=== PATIENT | female | born 1950 | race Caucasian/White ===

== ENCOUNTER → 2016-08-30 | Outpatient (CLI) | payer MEDICARE ==
--- NOTE | 2016-08-30 15:48 | US ---
EXAMINATION TYPE: US venous doppler duplex LE RT DATE OF EXAM: 08/30/2016 3:28 PM COMPARISON: NONE CLINICAL HISTORY: M25.561 Pain In Joint, Lower Leg. Right leg pain SIDE PERFORMED: Right TECHNIQUE: The lower extremity deep venous system is examined utilizing real time linear array sonog flor with graded compression, doppler sonography and color-flow sonography. VESSELS IMAGED: External Iliac Vein (EIV) Common Femoral Vein Deep Femoral Vein Greater Saphenous Vein * Femoral Vein Popliteal Vein Small Saphenous Vein * Proximal Calf Veins (* superficial vessels) Right Leg: Appears negative for DVT IMPRESSION: Right lower extremity negative for deep venous thrombosis by ultrasound.
== END | disposition home or self-care (01) ==
LOC: RADUSWWP 15:08
PROVIDERS: ATTEND Orthopaedic Surgery
DX: M25.561 Pain in right knee (principal); M79.661 Pain in right lower leg

== ENCOUNTER → 2016-10-28 | Outpatient (CLI) | payer MEDICARE ==
[2016-10-28 10:41] LABS: Basophils % (A) 1 %; CH 31.7; CHCM 32.8; Eosinophils # (A) 0.2 k/uL (0-0.7); Eosinophils % (A) 4 %; HCT 47.8 % (34.0-46.0); HDW 2.28; HGB 15.5 gm/dL (11.4-16.0); Luc # (Auto) 0.11; Luc % (Auto) 2; Lymphocytes % (A) 32 %; MCH 31.6 pg (25.0-35.0); MCHC 32.5 g/dL (31.0-37.0); Mean Platelet Volume 7.8; Monocytes # (A) 0.4 k/uL (0-1.0); Monocytes % (A) 6 %; Neutrophils # (A) 3.3 k/uL (1.3-7.7); Neutrophils % (A) 55 %; RBC 4.93 m/uL (3.80-5.40); RDW 12.9 % (11.5-15.5); WBC (Perox) 6.12
[2016-10-28 11:03] LABS: Potassium 4.2 mmol/L (3.5-5.1)
== END ==
LOC: LABPAT 10:12
PROVIDERS: ATTEND Orthopaedic Surgery
DX: Z01.812 Encounter for preprocedural laboratory examination (principal); M23.91 Unspecified internal derangement of right knee
CPT/HCPCS: 36415; 80051; 85025

== ENCOUNTER 2016-11-04 08:50 | Day surgery (SDC) | payer MEDICARE ==
[2016-10-29 12:10] VITALS: BMI 43.0
--- NOTE | 2016-11-04 07:18 | P.HPOR ---
History of Present Illness H&P Date: 11/04/16 Chief Complaint: Right knee pain 66-year-old patient seen with progressive right knee pain. After treatment options were discussed, she elected to proceed with right knee arthroscopy Past Medical History Past Medical History: Diabetes Mellitus, GERD/Reflux, Hyperlipidemia, Hypertension, Osteoarthritis (OA) Additional Past Medical History / Comment(s): MIGRAINE HEADACHE , PRIOR HISTORY OF HYPERTENSION AND DIABETIC PRIOR TO GASTRIC SLEEVE History of Any Multi-Drug Resistant Organisms: None Reported Past Surgical History: Appendectomy, Bariatric Surgery, Cholecystectomy, Joint Replacement, Tonsillectomy Additional Past Surgical History / Comment(s): GASTRIC SLEEVE,TOTAL RIGHT HIP, Past Anesthesia/Blood Transfusion Reactions: Motion Sickness, Postoperative Nausea & Vomiting (PONV) Smoking Status: Former smoker - Past Family History Brother(s) Family Medical History: Cancer Additional Family Medical History / Comment(s): ESOPHAGEAL Father Family Medical History: Cancer Medications and Allergies Home Medications Medication Instructions Recorded Confirmed Type Atorvastatin Calcium [Lipitor] 20 mg PO HS 10/29/16 10/29/16 History Esomeprazole Magnesium [NexIUM] 40 mg PO DAILY 10/29/16 10/29/16 History Gabapentin [Neurontin] 800 mg PO BID 10/29/16 10/29/16 History Meloxicam [Mobic] 7.5 mg PO DAILY 10/29/16 10/29/16 History Multivitamins, Thera [Multivitamin 1 tab PO DAILY 10/29/16 10/29/16 History (formulary)] Allergies Allergy/AdvReac Type Severity Reaction Status Date / Time amoxicillin [From Augmentin] Allergy Nausea & Verified 10/29/16 11:27 Vomiting & Diarrhea bee pollen Allergy Dyspnea,WHE Verified 10/29/16 11:28 EZING cat dander Allergy Dyspnea Verified 10/29/16 11:28 clavulanic acid Allergy Nausea & Verified 10/29/16 11:27 [From Augmentin] Vomiting & Diarrhea iodine Allergy Anaphylaxis Verified 10/29/16 11:25 latex Allergy Rash/Hives, Verified 10/29/16 11:27 ITCHING Physical Examination Osteopathic Statement: *. No significant issues noted on an osteopathic structural exam other than those noted in the History and Physical/Consult. Right knee range of motion 0-25. Moderate effusion. Tenderness medial joint line. Positive medial Kenia's. Crepitus along the patellofemoral compartment with range of motion. Pain with patellofemoral compression. Ligaments are stable. Hip rotation is without pain. Distal neurovascular exam is intact. Results X-ray right knee: moderate medial and severe patellofemoral compartment osteoarthritis MRI right knee: medial meniscal tear, osteoarthritis Assessment and Plan Plan: Assessment: Internal derangement right knee with medial meniscal tear Plan: Arthroscopy right knee with partial meniscectomy and debridement
[~2016-11-04 08:50] MED LIST: DEXAMETHASONE SOD PHOSPHATE 10 MG/ML 1 ML VIAL IV ONE; LACTATED RINGERS 1,000 ML IV SCH; LIDOCAINE 1% 20 ML VIAL (10MG/ML) FOR IV START INTRADERMA PRN; ONDANSETRON 4 MG/2 ML VIAL IVP ONE; SCOPOLAMINE 1.5MG/72HR PATCH TRANSDERM ONE; ceFAZolin 2 GM in SODIUM CHLORIDE 0.9% 100 ML IVPB ONE
[2016-11-04 10:05] LABS: Glucose,Whole Blood 135 mg/dL (75-99)
[2016-11-04] MEDS ORDERED: PROPOFOL 10 MG/ML 20 ML VIAL IV ONE (10:27)
[2016-11-04] MEDS ORDERED: MIDAZOLAM 2 MG/2 ML VIAL ONE (10:27)
[2016-11-04] MEDS ORDERED: GLYCOPYRROLATE 0.2 MG/ML 2 ML VIAL ONE (10:27)
[2016-11-04] MEDS ORDERED: SUCCINYLCHOLINE CHLORIDE 100 MG/5 ML SYR IV ONE (10:27)
[2016-11-04] MEDS ORDERED: ePHEDrine SULFATE/0.9% NACL/PF 50 MG/5 ML SYRINGE IV ONE (10:27)
[2016-11-04] MEDS ORDERED: fentaNYL (PF) 50 MCG/ML 2 ML AMP ONE (10:27)
[2016-11-04] MEDS ORDERED: LIDOCAINE 1% INJ 10MG/ML (20 ML MDV) ONE (10:27)
[2016-11-04] MEDS ORDERED: BUPIVACAINE (PF) 0.25% 30 ML VIAL SQ ONE (10:47)
[2016-11-04] MEDS ORDERED: LACTATED RINGERS 1,000 ML IV ONE (11:08)
[2016-11-04] MEDS: HYDROmorphone 1 MG/ML 1 ML SYRINGE IVP PRN ×3 (11:17→11:33)
--- NOTE | 2016-11-04 11:20 | P.OP ---
Date of Procedure: 11/04/16 Preoperative Diagnosis: Internal derangement right knee Postoperative Diagnosis: 1. Tear medial and lateral meniscus right knee 2. 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 Grade 3 chondromalacia medial femoral condyle right knee 4. Reactive synovitis medial and suprapatellar compartments right knee Procedure(s) Performed: 1. Arthroscopic partial medial and lateral meniscectomy right knee 2. Arthroscopic chondroplasty patellofemoral joint right knee 3. Arthroscopic chondroplasty medial femoral condyle right knee 4. Arthroscopic partial synovectomy medial and suprapatellar compartments right knee Implants: Anesthesia: GETA, local Surgeon: Jens Urena Estimated Blood Loss (ml): 10 Pathology: none sent Condition: stable Disposition: PACU Indications for Procedure: 66-year-old patient seen with right knee pain. After treatment options were discussed, she elected to proceed with arthroscopy. Operative Findings: see description of procedure Description of Procedure: Patient was taken to the operative suite. Patient underwent a general anesthetic by the department of anesthesia. Patient was given preoperative antibiotics. The right lower extremity was placed in a well-padded arthroscopic leg durant. The right leg was prepped and draped in the normal sterile orthopedic fashion. A lateral parapatellar and suprapatellar incision was made. Trochars were inserted. Arthroscopy was initiated. Suprapatellar pouch revealed thick reactive synovitis. The patellofemoral joint appeared to articulate congruently. There was grade 4 chondromalacia patella and femoral sulcus. There was bony exposure noted on both the femoral sulcus and patella. There was some peripheral osteochondral tears present.. The scope was guided into the medial gutter. No loose bodies or plica were identified. The scope was then guided into the medial compartment. A medial parapatellar incision was made. Trocar inserted followed by probe. There was a complex tear posterior horn medial meniscus. Grade 3 chondromalacia changes of the medial femoral condyle with osteochondral tears. Reactive synovitis anteriorly. Partial medial meniscectomy performed down to stable tissue. I performed a chondroplasty medial femoral condyle down to stable tissue and partial synovectomy. The residual meniscus was stable. Scope and probe were then guided into the intercondylar notch. Cruciates were identified, probed and found to be stable. The scope and probe were then guided into lateral compartment. There was some superficial tearing of the midbody lateral meniscus. Grade 1, she changes lateral compartment with no osteochondral tears. A partial lateral meniscectomy performed on a stable tissue. The residual meniscus was stable. The scope was in guided back into the suprapatellar compartment. I introduced a motorized shaver into the super patellar compartment. I debrided some piecemeal fragments of meniscus I encountered. I performed a chondroplasty of patella and femoral sulcus again along the peripheral area is more central areas were completely worn out with bony exposure. I performed a partial synovectomy. Shaver was removed. Instruments were now removed from the joint. The joint was infiltrated with .25 % Marcaine. Steri-Strips were applied to the portal sites. Sterile dressings were applied. The patient was placed into a GEORGINA hose. No tourniquet was utilized. The patient was awakened, transferred to a bed and taken to recovery stable satisfactory condition.
[2016-11-04 11:23] VITALS: TEMP 97
[2016-11-04] MEDS ORDERED: ONDANSETRON 4 MG/2 ML VIAL IVP ONE (11:41)
[2016-11-04] MEDS ORDERED: KETOROLAC 30 MG/ML 1 ML VIAL IVP ONE (11:46)
[2016-11-04] MEDS ORDERED: HYDROmorphone 1 MG/ML 1 ML SYRINGE IVP ONE ×2 (11:52→11:57)
[2016-11-04 12:17] VITALS: RESP 16
[2016-11-04 13:01] VITALS: BP 114/62; PULSE 61
== END 2016-11-04 13:48 | disposition home or self-care (01) ==
LOC: OR 08:50
PROVIDERS: ATTEND Orthopaedic Surgery
DX: S83.241A Other tear of medial meniscus, current injury, right knee, initial encounter (principal); S83.281A Other tear of lateral meniscus, current injury, right knee, initial encounter; M17.11 Unilateral primary osteoarthritis, right knee; M22.41 Chondromalacia patellae, right knee; M65.9 Synovitis and tenosynovitis, unspecified; E11.9 Type 2 diabetes mellitus without complications; K21.9 Gastro-esophageal reflux disease without esophagitis; I10 Essential (primary) hypertension; E78.5 Hyperlipidemia, unspecified; G43.909 Migraine, unspecified, not intractable, without status migrainosus; Z87.891 Personal history of nicotine dependence; Z88.1 Allergy status to other antibiotic agents; Z91.040 Latex allergy status; Z79.1 Long term (current) use of non-steroidal anti-inflammatories (NSAID); Z79.899 Other long term (current) drug therapy; Z98.84 Bariatric surgery status; X58.XXXA Exposure to other specified factors, initial encounter
CPT/HCPCS: 29880; J2250; J1100; J0690; J2405; J2001; J3010; J1885; J1170; J0330; J2704

== ENCOUNTER 2016-11-08 14:58 | Inpatient (IN) | payer MEDICARE ==
[2016-11-08] MEDS ORDERED: SODIUM CHLORIDE 0.9% 500 ML IV STA (17:27)
--- NOTE | 2016-11-08 17:41 | ED ---
Fever HPI - General Chief Complaint: Fever Stated Complaint: chills/post op Friday Time Seen by Provider: 11/08/16 17:06 Source: patient, RN notes reviewed Mode of arrival: wheelchair Limitations: no limitations - History of Present Illness Initial Comments: 66-year-old female presents emergency Department chief complaint of chills, nausea. Patient states that she was at home woke up with shaking chills and states that she cut she reaches may have been cold due to the weather change states that she said underneath a heated blanket 4 hours with no relief. Patient states she is concerned as she had meniscus surgery on her right knee by Dr. Urena on Friday. Patient called on-call orthopedic who recommended come emergency department. She denies any increased pain, redness or drainage from her right knee. Patient states that she did have a bowel movement today which was normal denies any diarrhea, constipation, dysuria hematuria. Patient states that she did had some sputum production after her surgery related to intubation. She states was yellow in nature but denies any chest pain or shortness breath this time. Denies sore throat, ear pain, headache, dizziness, neck pain. Patient denies any sick contacts. - Related Data Home Medications Medication Instructions Recorded Confirmed Atorvastatin Calcium [Lipitor] 20 mg PO HS 10/29/16 11/08/16 Esomeprazole Magnesium [NexIUM] 40 mg PO DAILY 10/29/16 11/08/16 Gabapentin [Neurontin] 800 mg PO BID 10/29/16 11/08/16 Meloxicam [Mobic] 7.5 mg PO DAILY 10/29/16 11/08/16 Multivitamins, Thera [Multivitamin 1 tab PO DAILY 10/29/16 11/08/16 (formulary)] EPINEPHrine [Epipen 2-Khurram] 0.3 mg PO ONCE PRN 11/08/16 11/08/16 HYDROcodone/APAP 7.5-325MG [[place] 1 tab PO Q6HR PRN 11/08/16 11/08/16 7.5] Allergies Allergy/AdvReac Type Severity Reaction Status Date / Time amoxicillin [From Augmentin] Allergy Nausea & Verified 11/08/16 17:24 Vomiting & Diarrhea bee pollen Allergy Dyspnea,WHE Verified 11/08/16 15:07 EZING cat dander Allergy Dyspnea Verified 11/08/16 17:24 clavulanic acid Allergy Nausea & Verified 11/08/16 17:24 [From Augmentin] Vomiting & Diarrhea Iodinated Contrast- Oral and Allergy Anaphylaxis Verified 11/08/16 17:24 IV Dye iodine Allergy Anaphylaxis Verified 11/08/16 17:24 latex Allergy Rash/Hives, Verified 11/08/16 17:24 ITCHING venom-honey bee Allergy Anaphylaxis Verified 11/08/16 17:24 Review of Systems ROS Statement: Those systems with pertinent positive or pertinent negative responses have been documented in the HPI. ROS Other: All systems not noted in ROS Statement are negative. Past Medical History Past Medical History: GERD/Reflux, Hyperlipidemia, Osteoarthritis (OA) History of Any Multi-Drug Resistant Organisms: None Reported Past Surgical History: Adenoidectomy, Appendectomy, Cholecystectomy, Joint Replacement, Orthopedic Surgery, Tonsillectomy Additional Past Surgical History / Comment(s): knee surg gastric sleep Past Psychological History: No Psychological Hx Reported Smoking Status: Never smoker Past Alcohol Use History: Occasional Past Drug Use History: None Reported General Exam Limitations: no limitations General appearance: alert, in no apparent distress ENT exam: Present: normal exam, normal oropharynx, mucous membranes moist, TM's normal bilaterally Neck exam: Present: normal inspection, full ROM. Absent: tenderness, meningismus, lymphadenopathy Respiratory exam: Present: normal lung sounds bilaterally. Absent: respiratory distress, wheezes, rales, rhonchi, stridor Cardiovascular Exam: Present: regular rate, normal rhythm, normal heart sounds. Absent: systolic murmur, diastolic murmur, rubs, gallop, clicks GI/Abdominal exam: Present: soft, normal bowel sounds. Absent: distended, tenderness, guarding, rebound, rigid Extremities exam: Present: other (Right knee Steri-Strips in place there is no surrounding erythema, purulent drainage or warmth to the knee patient has good range of motion with pulses equal bilaterally) Neurological exam: Present: alert, oriented X3, CN II-XII intact Skin exam: Present: warm, dry, intact, normal color. Absent: rash Course Vital Signs 11/08/16 11/08/16 15:03 19:00 Temperature 99.7 F H Pulse Rate 78 72 Respiratory 18 18 Rate Blood Pressure 176/79 125/72 O2 Sat by Pulse 99 97 Oximetry Medical Decision Making - Medical Decision Making 66-year-old female presented emergency department for fever or chills. Patient has an elevated white count, elevated lactic rate fever. Patient does not have a clear source of infection. Possible sepsis antibiotics started when labs resulted at 18:29 - Lab Data Result diagrams: 11/08/16 17:55 11/08/16 17:55 Lab Results 11/08/16 11/08/16 11/08/16 Range/Units 17:55 17:55 17:55 WBC 20.6 H (3.8-10.6) k/uL RBC 5.18 (3.80-5.40) m/uL Hgb 16.4 H (11.4-16.0) gm/dL Hct 48.4 H (34.0-46.0) % MCV 93.5 (80.0-100.0) fL MCH 31.6 (25.0-35.0) pg MCHC 33.8 (31.0-37.0) g/dL RDW 12.9 (11.5-15.5) % Plt Count 294 (150-450) k/uL Neutrophils % 93 % Lymphocytes % 3 % Monocytes % 2 % Eosinophils % 1 % Basophils % 0 % Neutrophils # 19.1 H (1.3-7.7) k/uL Lymphocytes # 0.7 L (1.0-4.8) k/uL Monocytes # 0.5 (0-1.0) k/uL Eosinophils # 0.1 (0-0.7) k/uL Basophils # 0.1 (0-0.2) k/uL Sodium 136 L (137-145) mmol/L Potassium 4.3 (3.5-5.1) mmol/L Chloride 104 (98-107) mmol/L Carbon Dioxide 20 L (22-30) mmol/L Anion Gap 12 mmol/L BUN 15 (7-17) mg/dL Creatinine 1.00 (0.52-1.04) mg/dL Est GFR (MDRD) Af Amer >60 (>60 ml/min/1.73 sqM) Est GFR (MDRD) Non-Af 56 (>60 ml/min/1.73 sqM) Glucose 209 H (74-99) mg/dL Plasma Lactic Acid Levon 2.5 H* (0.7-2.0) mmol/L Calcium 9.6 (8.4-10.2) mg/dL Total Bilirubin 1.1 (0.2-1.3) mg/dL AST 33 (14-36) U/L ALT 41 (9-52) U/L Alkaline Phosphatase 95 (38-126) U/L Total Protein 6.8 (6.3-8.2) g/dL Albumin 4.0 (3.5-5.0) g/dL Urine Color Urine Appearance (Clear) Urine pH (5.0-8.0) Ur Specific [place] (1.001-1.035) Urine Protein (Negative) Urine Glucose (UA) (Negative) Urine Ketones (Negative) Urine Blood (Negative) Urine Nitrite (Negative) Urine Bilirubin (Negative) Urine Urobilinogen (<2.0) mg/dL Ur Leukocyte Esterase (Negative) 11/08/16 Range/Units 18:00 WBC (3.8-10.6) k/uL RBC (3.80-5.40) m/uL Hgb (11.4-16.0) gm/dL Hct (34.0-46.0) % MCV (80.0-100.0) fL MCH (25.0-35.0) pg MCHC (31.0-37.0) g/dL RDW (11.5-15.5) % Plt Count (150-450) k/uL Neutrophils % % Lymphocytes % % Monocytes % % Eosinophils % % Basophils % % Neutrophils # (1.3-7.7) k/uL Lymphocytes # (1.0-4.8) k/uL Monocytes # (0-1.0) k/uL Eosinophils # (0-0.7) k/uL Basophils # (0-0.2) k/uL Sodium (137-145) mmol/L Potassium (3.5-5.1) mmol/L Chloride (98-107) mmol/L Carbon Dioxide (22-30) mmol/L Anion Gap mmol/L BUN (7-17) mg/dL Creatinine (0.52-1.04) mg/dL Est GFR (MDRD) Af Amer (>60 ml/min/1.73 sqM) Est GFR (MDRD) Non-Af (>60 ml/min/1.73 sqM) Glucose (74-99) mg/dL Plasma Lactic Acid Levon (0.7-2.0) mmol/L Calcium (8.4-10.2) mg/dL Total Bilirubin (0.2-1.3) mg/dL AST (14-36) U/L ALT (9-52) U/L Alkaline Phosphatase (38-126) U/L Total Protein (6.3-8.2) g/dL Albumin (3.5-5.0) g/dL Urine Color Yellow Urine Appearance Clear (Clear) Urine pH 5.5 (5.0-8.0) Ur Specific [place] 1.014 (1.001-1.035) Urine Protein Negative (Negative) Urine Glucose (UA) Negative (Negative) Urine Ketones 1+ H (Negative) Urine Blood Negative (Negative) Urine Nitrite Negative (Negative) Urine Bilirubin Negative (Negative) Urine Urobilinogen <2.0 (<2.0) mg/dL Ur Leukocyte Esterase Negative (Negative) Disposition Clinical Impression: Leukocytosis, Nausea, Status post arthroscopic surgery of right knee Disposition: ADMITTED IP TO THIS [facility] Condition: Fair Referrals: Jameson Diaz MD [Primary Care Provider] - 1-2 days
[2016-11-08 18:09] LABS: Appearance,Urine Clear (Clear); Bilirubin,Urine Negative (Negative); Glucose,Urine (UA) Negative (Negative); Ketones,Urine 1+ (Negative); Leukocyte Esterase,Urine Negative (Negative); Nitrite,Urine Negative (Negative); PH, Urine 5.5 (5.0-8.0); Protein,Urine Negative (Negative); Specific Gravity,Urine 1.014 (1.001-1.035); UA Billing (MACRO vs. MICRO) CHEM; Urobilinogen,Urine <2.0 mg/dL (<2.0)
[2016-11-08 18:09] LABS: Basophils # (A) 0.1 k/uL (0-0.2); Basophils % (A) 0 %; CH 32.1; CHCM 34.4; Eosinophils # (A) 0.1 k/uL (0-0.7); Eosinophils % (A) 1 %; HCT 48.4 % (34.0-46.0); HGB 16.4 gm/dL (11.4-16.0); Luc # (Auto) 0.08; Luc % (Auto) 0; Lymphocytes # (A) 0.7 k/uL (1.0-4.8); Lymphocytes % (A) 3 %; MCH 31.6 pg (25.0-35.0); MCHC 33.8 g/dL (31.0-37.0); MCV 93.5 fL (80.0-100.0); Monocytes # (A) 0.5 k/uL (0-1.0); Monocytes % (A) 2 %; Neutrophils # (A) 19.1 k/uL (1.3-7.7); Neutrophils % (A) 93 %; RBC 5.18 m/uL (3.80-5.40); RDW 12.9 % (11.5-15.5); WBC 20.6 k/uL (3.8-10.6)
[2016-11-08 18:17] LABS: ALT 41 U/L (9-52); AST 33 U/L (14-36); Alkaline Phosphatase 95 U/L (38-126); Anion Gap 12 mmol/L; Blood Urea Nitrogen 15 mg/dL (7-17); Calcium 9.6 mg/dL (8.4-10.2); Carbon Dioxide 20 mmol/L (22-30); Chloride 104 mmol/L (98-107); Glucose 209 mg/dL (74-99); Non-African American GFR(MDRD) 56 (>60 ml/min/1.73 sqM); Potassium 4.3 mmol/L (3.5-5.1); Sodium 136 mmol/L (137-145); Total Bilirubin 1.1 mg/dL (0.2-1.3); Total Protein 6.8 g/dL (6.3-8.2)
--- NOTE | 2016-11-08 18:28 | XR ---
EXAMINATION TYPE: XR chest 2V DATE OF EXAM: 11/08/2016 COMPARISON: NONE HISTORY: Nausea and diarrhea TECHNIQUE: Frontal and lateral views of the chest are obtained. FINDINGS: There is no heart failure nor confluent pneumonic infiltrate. There are no hilar masses. H eart size is normal. Mediastinum is normal. Bony thorax appears intact. IMPRESSION: No cardiopulmonary disease.
[2016-11-08] MEDS ORDERED: SODIUM CHLORIDE 0.9% 1,000 ML IV ONE ×2 (18:29→20:46)
[2016-11-08] MEDS ORDERED: LEVOFLOXACIN 750MG-D5W PMX 750 MG in DEXTROSE/WATER 1 150ML.BAG IVPB STA (18:29)
[2016-11-08] MEDS ORDERED: IV VANCOMYCIN PER PHARMACY 1 EACH MISC MISCELLANE PRN (18:29)
--- NOTE | 2016-11-08 18:29 | XR ---
EXAMINATION TYPE: XR knee complete RT DATE OF EXAM: 11/08/2016 COMPARISON: NONE HISTORY: Chills TECHNIQUE: 3 views FINDINGS: There is spurring of the femoral and tibial condyles. There is narrowing and spurring at th e patellofemoral joint. There is mild knee joint effusion. I see no fracture. There is narrowing of t he medial joint space. IMPRESSION: Osteoarthritic changes. Knee joint effusion. No fracture.
[2016-11-08] MEDS ORDERED: ONDANSETRON 4 MG/2 ML VIAL IVP STA (18:32)
[2016-11-08] MEDS ORDERED: VANCOMYCIN 1,750 MG in SODIUM CHLORIDE 0.9% 250 ML IVPB STA (18:34)
[2016-11-08] MEDS ORDERED: HYDROcodone/APAP 7.5-325MG 1 EACH TAB PO ONE (19:34)
--- NOTE | 2016-11-08 22:34 | P.HPIM ---
History of Present Illness H&P Date: 11/08/16 Patient is a 66 years old female with a recent history of arthroscopic right knee replacement by Dr. Good who developed acute chills with no fevers but didn't did not go away last almost 4 hours propping her to call Dr. Good will ask her to come to the emergency room. In the ER she was found with white count and she was having mild pain at the surgical site were consulted for medical management and inpatient admission. Review of Systems Constitutional: Patient reports no fever, no chills, no weight changes, no change in appetite Eyes: Patient reports no double vision, no visual changes ENT: Patient reports no rhinorrhea, no post nasal drip, no sore throat Cardiovascular: Patient reports no chest, no edema, no palpitations, no syncope , no orthopnea, no paroxysmal nocturnal dyspnea. Respiratory: Patient reports no dyspnea, no cough, no wheeze Gastrointestinal: Patient reports no nausea, no vomiting, no constipation, no diarrhea Genitourinary: Patient reports no dysuria, no urinary frequency, no hematuria. Musculoskeletal: Patient reports Some R KNee tender medially , somewhat warm no joint swelling or weakness surgical inision clean.Patient reports no muscular pain. Psychiatric: Patient reports no changes in mood, no sleeping problems. Patient reports no changes in memory. Endocrine: Patient reports no thirst, no polyuria, no cold intolerance, no heat intolerance. Neurological: Patient reports no unusual paresthesias, no seizures, no paresis , no paralysis, no facila droop, no headache. Heme/Lymphatic: Patient reports no easy bruising, no bleeding tendency, no lymphadenopathy. Allergic/ Immunologic: Patient reports no recent allergic reactions or immunologic history. Skin: Patient reports no rashes or unusual lesions. Past Medical History Past Medical History: GERD/Reflux, Hyperlipidemia, Osteoarthritis (OA) History of Any Multi-Drug Resistant Organisms: None Reported Past Surgical History: Adenoidectomy, Appendectomy, Cholecystectomy, Joint Replacement, Orthopedic Surgery, Tonsillectomy Additional Past Surgical History / Comment(s): knee surg gastric sleep Past Psychological History: No Psychological Hx Reported Smoking Status: Never smoker Past Alcohol Use History: Occasional Past Drug Use History: None Reported Medications and Allergies Home Medications Medication Instructions Recorded Confirmed Type Atorvastatin Calcium [Lipitor] 20 mg PO HS 10/29/16 11/08/16 History Esomeprazole Magnesium [NexIUM] 40 mg PO DAILY 10/29/16 11/08/16 History Gabapentin [Neurontin] 800 mg PO BID 10/29/16 11/08/16 History Meloxicam [Mobic] 7.5 mg PO DAILY 10/29/16 11/08/16 History Multivitamins, Thera [Multivitamin 1 tab PO DAILY 10/29/16 11/08/16 History (formulary)] EPINEPHrine [Epipen 2-Khurram] 0.3 mg PO ONCE PRN 11/08/16 11/08/16 History HYDROcodone/APAP 7.5-325MG [[place] 1 tab PO Q6HR PRN 11/08/16 11/08/16 History 7.5] Allergies Allergy/AdvReac Type Severity Reaction Status Date / Time amoxicillin [From Augmentin] Allergy Nausea & Verified 11/08/16 17:24 Vomiting & Diarrhea bee pollen Allergy Dyspnea,WHE Verified 11/08/16 15:07 EZING cat dander Allergy Dyspnea Verified 11/08/16 17:24 clavulanic acid Allergy Nausea & Verified 11/08/16 17:24 [From Augmentin] Vomiting & Diarrhea Iodinated Contrast- Oral and Allergy Anaphylaxis Verified 11/08/16 17:24 IV Dye iodine Allergy Anaphylaxis Verified 11/08/16 17:24 latex Allergy Rash/Hives, Verified 11/08/16 17:24 ITCHING venom-honey bee Allergy Anaphylaxis Verified 11/08/16 17:24 Physical Exam Vitals: Vital Signs Temp Pulse Resp BP Pulse Ox 11/08/16 21:21 131/80 11/08/16 21:08 98.3 F 73 20 11/08/16 19:00 72 18 125/72 97 11/08/16 15:03 99.7 F H 78 18 176/79 99 Intake and Output 11/08/16 11/08/16 11/08/16 06:59 14:59 22:59 Other: Weight 104.326 kg Patient Weight 11/09/16 06:59 Weight 104.326 kg - Constitutional General appearance: morbidly obese, no severe distress - EENT Eyes: PERRLA, no photophobia, no ptosis, no scleral icterus, normal appearance ENT: no hard of hearing, no pharyngeal erythema, no thrush Ears: bilateral: normal - Neck Neck: no normal ROM, no rigidity Carotids: bilateral: upstroke normal - Respiratory Respiratory: bilateral: CTA, negative: rales, rhonchi, wheezing - Cardiovascular Rhythm: regular Heart sounds: normal: S1, S2 Abnormal Heart Sounds: no systolic murmur, no diastolic murmur, no S4 Gallop - Gastrointestinal General gastrointestinal: no distended, normal bowel sounds, no organomegaly, no tenderness - Neurologic Neurologic: CNII-XII intact, focal deficits - Musculoskeletal Musculoskeletal: gait normal, strength equal bilaterally - Psychiatric Psychiatric: A&O x's 3, appropriate affect, intact judgment & insight Results CBC & Chem 7: 11/08/16 17:55 11/08/16 17:55 Labs: Abnormal Lab Results - Last 24 Hours (Table) 11/08/16 11/08/16 11/08/16 Range/Units 17:55 17:55 17:55 WBC 20.6 H (3.8-10.6) k/uL Hgb 16.4 H (11.4-16.0) gm/dL Hct 48.4 H (34.0-46.0) % Neutrophils # 19.1 H (1.3-7.7) k/uL Lymphocytes # 0.7 L (1.0-4.8) k/uL Sodium 136 L (137-145) mmol/L Carbon Dioxide 20 L (22-30) mmol/L Glucose 209 H (74-99) mg/dL Plasma Lactic Acid Levon 2.5 H* (0.7-2.0) mmol/L Urine Ketones (Negative) 11/08/16 Range/Units 18:00 WBC (3.8-10.6) k/uL Hgb (11.4-16.0) gm/dL Hct (34.0-46.0) % Neutrophils # (1.3-7.7) k/uL Lymphocytes # (1.0-4.8) k/uL Sodium (137-145) mmol/L Carbon Dioxide (22-30) mmol/L Glucose (74-99) mg/dL Plasma Lactic Acid Levon (0.7-2.0) mmol/L Urine Ketones 1+ H (Negative) Assessment and Plan (1) Chills (without fever) Narrative/Plan: Patient presents with chills but no apparent other symptoms she is denying any respiratory urinary or cardiovascular or GI complaints she had recent knee surgery with some warmth at the surgical site but no discharge or redness incision looks clear however it is slightly warm to touch with limited range of motion Patient already started on Levaquin and vancomycin Dr. Winchester was consulted for possible joint infection Status: Acute (2) Status post arthroscopic surgery of right knee Narrative/Plan: Recent arthroscopic surgery place her at risk for infection which could be the culprit of her chills and white count We will consult Dr. Good for visit further evaluation and management of her right knee. Status: Acute (3) Leukocytosis Narrative/Plan: As above result of infection will start her on antibiotics and IV fluids Status: Acute (4) Morbid obesity Narrative/Plan: Consultation regarding weight loss less on medication she status post gastric sleeve almost 110 pounds Status: Acute
[2016-11-08] MEDS: GABAPENTIN 400 MG CAP PO SCH (22:46)
[2016-11-08] MEDS: ATORVASTATIN 20 MG TAB PO SCH (22:46)
[2016-11-08 23:02] VITALS: BMI 42.0
[2016-11-09] MEDS: PANTOPRAZOLE 40 MG TABLET PO SCH (06:17)
[2016-11-09 07:27] LABS: INR 1.2 (<1.2)
[2016-11-09 07:28] LABS: Prothrombin Time 11.8 sec (9.0-12.0)
--- NOTE | 2016-11-09 08:03 | P.HPOR ---
History of Present Illness H&P Date: 11/09/16 Chief Complaint: Fever/chills The patient is a 66-year-old female presents with fever and chills for the past day. She underwent a right knee arthroscopy this past Friday. Initially she felt well. She's had progressive fevers and chills and presented to the emergency room and therefore was admitted. She denies a significant cough, urinary symptoms, or bowel symptoms. Review of Systems Constitutional: Reports chills, Reports fever Musculoskeletal: right: knee pain, knee swelling Past Medical History Past Medical History: GERD/Reflux, Hyperlipidemia, Osteoarthritis (OA) History of Any Multi-Drug Resistant Organisms: None Reported Past Surgical History: Adenoidectomy, Appendectomy, Cholecystectomy, Joint Replacement, Orthopedic Surgery, Tonsillectomy Additional Past Surgical History / Comment(s): knee surg gastric sleep Past Anesthesia/Blood Transfusion Reactions: Postoperative Nausea & Vomiting ( PONV) Past Psychological History: No Psychological Hx Reported Smoking Status: Never smoker Past Alcohol Use History: Occasional Past Drug Use History: None Reported - Past Family History Father Family Medical History: Cancer Additional Family Medical History / Comment(s): colon cancer Brother(s) Family Medical History: Cancer Additional Family Medical History / Comment(s): esophageal Mother Family Medical History: CVA/TIA, Myocardial Infarction ([place]) Medications and Allergies Home Medications Medication Instructions Recorded Confirmed Type Atorvastatin Calcium [Lipitor] 20 mg PO HS 10/29/16 11/08/16 History Esomeprazole Magnesium [NexIUM] 40 mg PO DAILY 10/29/16 11/08/16 History Gabapentin [Neurontin] 800 mg PO BID 10/29/16 11/08/16 History Meloxicam [Mobic] 7.5 mg PO DAILY 10/29/16 11/08/16 History Multivitamins, Thera [Multivitamin 1 tab PO DAILY 10/29/16 11/08/16 History (formulary)] EPINEPHrine [Epipen 2-Khurram] 0.3 mg PO ONCE PRN 11/08/16 11/08/16 History HYDROcodone/APAP 7.5-325MG [[place] 1 tab PO Q6HR PRN 11/08/16 11/08/16 History 7.5] Allergies Allergy/AdvReac Type Severity Reaction Status Date / Time amoxicillin [From Augmentin] Allergy Nausea & Verified 11/08/16 17:24 Vomiting & Diarrhea bee pollen Allergy Dyspnea,WHE Verified 11/08/16 15:07 EZING cat dander Allergy Dyspnea Verified 11/08/16 17:24 clavulanic acid Allergy Nausea & Verified 11/08/16 17:24 [From Augmentin] Vomiting & Diarrhea Iodinated Contrast- Oral and Allergy Anaphylaxis Verified 11/08/16 17:24 IV Dye iodine Allergy Anaphylaxis Verified 11/08/16 17:24 latex Allergy Rash/Hives, Verified 11/08/16 17:24 ITCHING venom-honey bee Allergy Anaphylaxis Verified 11/08/16 17:24 Physical Examination - Knee right Appearance: previous incision (Portals with minimal erythema) Effusion grade: grade 2 (Moderate effusion) Tenderness with palpation: other (Mild diffuse joint line tenderness) Pain: with flexion ROM: extension: -10 degrees ROM: flexion: 90 degrees Results - Labs Labs: Abnormal Lab Results - Last 24 Hours (Table) 11/08/16 11/08/16 11/08/16 Range/Units 17:55 17:55 17:55 WBC 20.6 H (3.8-10.6) k/uL Hgb 16.4 H (11.4-16.0) gm/dL Hct 48.4 H (34.0-46.0) % Neutrophils # 19.1 H (1.3-7.7) k/uL Lymphocytes # 0.7 L (1.0-4.8) k/uL INR (<1.2) Sodium 136 L (137-145) mmol/L Carbon Dioxide 20 L (22-30) mmol/L Glucose 209 H (74-99) mg/dL Plasma Lactic Acid Levon 2.5 H* (0.7-2.0) mmol/L Urine Ketones (Negative) 11/08/16 11/08/16 11/09/16 Range/Units 18:00 22:08 06:37 WBC (3.8-10.6) k/uL Hgb (11.4-16.0) gm/dL Hct (34.0-46.0) % Neutrophils # (1.3-7.7) k/uL Lymphocytes # (1.0-4.8) k/uL INR 1.2 H (<1.2) Sodium (137-145) mmol/L Carbon Dioxide (22-30) mmol/L Glucose (74-99) mg/dL Plasma Lactic Acid Levon 2.2 H* (0.7-2.0) mmol/L Urine Ketones 1+ H (Negative) Microbiology - Last 24 Hours (Table) 11/08/16 18:00 Urine Culture - Preliminary Urine,Voided H & H 11/08/16 Range/Units 17:55 Hgb 16.4 H (11.4-16.0) gm/dL Hct 48.4 H (34.0-46.0) % Coagulation 11/09/16 Range/Units 06:37 INR 1.2 H (<1.2) Result Diagrams: 11/08/16 17:55 11/08/16 17:55 - Diagnostic results Knee x-ray: report reviewed (Moderate effusion) Assessment and Plan (1) Septic arthritis of knee, right Status: Acute Plan: At this point she has no other obvious source of infection/sepsis. I will plan to arthroscopically irrigate and debride her right knee today. We'll obtain cultures at that point. We will continue with empiric IV antibiotics and potentially consult infectious disease.
[2016-11-09] MEDS ORDERED: MIDAZOLAM 2 MG/2 ML VIAL ONE (10:21)
[2016-11-09] MEDS ORDERED: LACTATED RINGERS 1,000 ML IV ONE (10:21)
[2016-11-09] MEDS ORDERED: SUCCINYLCHOLINE CHLORIDE 100 MG/5 ML SYR IV ONE (10:21)
[2016-11-09] MEDS ORDERED: fentaNYL (PF) 50 MCG/ML 2 ML AMP ONE (10:21)
[2016-11-09] MEDS ORDERED: HYDROmorphone (PF) 1 MG/ML ONE (10:21)
[2016-11-09] MEDS ORDERED: ONDANSETRON 4 MG/2 ML VIAL ONE (10:21)
[2016-11-09] MEDS ORDERED: PROPOFOL 10 MG/ML 20 ML VIAL IV ONE (10:21)
[2016-11-09] MEDS ORDERED: LIDOCAINE 1% INJ 10MG/ML (20 ML MDV) ONE (10:21)
[2016-11-09] MEDS ORDERED: ceFAZolin 3,000 MG in SODIUM CHLORIDE 0.9% IRRIGATIO 3,000 ML IRRIGATION ONE (10:43)
--- NOTE | 2016-11-09 11:10 | P.OP ---
Date of Procedure: 11/09/16 Preoperative Diagnosis: Right knee septic arthritis status post arthroscopy Postoperative Diagnosis: Same Procedure(s) Performed: Right knee arthroscopic irrigation and debridement/partial synovectomy of the medial, lateral, and patellofemoral compartments Implants: Anesthesia: NURY Surgeon: Suresh Winchester Estimated Blood Loss (ml): 10 Pathology: other (Deep cultures) Condition: stable Disposition: PACU Indications for Procedure: The patient is a 66-year-old female who presents with a one-day history of progressive fevers and chills and upon presentation appeared to be developing sepsis. Her right knee appeared to be the only suspected source of the infection. A discussion of the risks and benefits of operative intervention was made with the patient. Specific risks of the procedure to include persistence of infection, neurovascular injury, development of blood clots, and possible need for subsequent procedures was discussed. Informed consent was obtained. Operative Findings: Moderate synovitis/moderate serous effusion Description of Procedure: The patient was brought to the operating room, and after induction of general anesthesia the right lower extremity was prepped and draped in normal fashion. The previous portals were utilized. I obtained a moderate effusion from the superior lateral portal. Cultures were obtained with this fluid. The lateral and medial portals were also reutilized. Diagnostic arthroscopy was performed. Moderate synovitis of the medial, lateral, and patellofemoral compartments was noted and this was debrided with a motorized shaver. Copious irrigation of all 3 compartments utilizing 9 L of fluid was performed. Grade 2-3 chondral changes were noted diffusely in the medial compartment. Grade 4 chondral changes were noted involving the lateral patella femoral articulation. The gutters were clear debris. The portals were loosely closed with Steri-Strips. A sterile dressing was applied. The patient was awoken from general anesthesia and transferred to recovery room in good condition. Blood loss was estimated at 10 mL. No complications were incurred.
[2016-11-09 11:12] LABS: Glucose,Whole Blood 110 mg/dL (75-99)
[2016-11-09] MEDS ORDERED: HYDROmorphone 1 MG/ML 1 ML SYRINGE IVP ONE ×2 (11:15→11:21)
[2016-11-09] MEDS ORDERED: PROMETHAZINE INJ 25 MG/ML 1 ML VIAL IVPB ONE (11:27)
[2016-11-09] MEDS: GABAPENTIN 400 MG CAP PO SCH ×2 (14:29→22:17)
[2016-11-09] MEDS: LACTATED RINGERS 1,000 ML IV SCH (14:29)
[2016-11-09] MEDS: MELOXICAM 7.5 MG TAB PO SCH (14:29)
[2016-11-09] MEDS: INSULIN LISPRO (humaLOG) 300 UNIT/3 ML VIAL SQ SCH ×3 (14:31→22:37)
[2016-11-09 14:34] LABS: Hemoglobin A1C 7.2 % (4.2-6.1)
[2016-11-09] MEDS: HYDROcodone/APAP 7.5-325MG 1 EACH TAB PO PRN ×2 (14:36→22:18)
[2016-11-09] MEDS ORDERED: IV VANCOMYCIN PER PHARMACY 1 EACH MISC MISCELLANE PRN (15:08)
--- NOTE | 2016-11-09 15:14 | P.PN ---
Subjective Principal diagnosis: Chills Patient is a 66-year-old female history of morbid obesity, osteoarthritis, and diet-controlled diabetes mellitus type 2 who presented with chills after having undergone right knee arthroscopic surgery 5 days prior. In the ER she was found to have an elevated white blood cell count and riders. There was concern for possible septic arthritis. On the morning of 11/09 she underwent irrigation of right with cultures. Infectious disease has been consulted. Patient seen and examined at bedside. She complains of feeling sedated after surgery. She denies any nausea, vomiting, diarrhea, or constipation. She is concerned about possible sepsis that she had this several years ago. She has no other complaints currently. Her pain in her knee is well-controlled at this time. Objective - Vital Signs Vital signs: Vital Signs Temp 98.6 F 11/09/16 12:15 Pulse 58 L 11/09/16 12:15 Resp 16 11/09/16 12:15 BP 126/59 11/09/16 12:15 Pulse Ox 100 11/09/16 12:15 Intake & Output 11/08/16 11/09/16 11/09/16 18:59 06:59 18:59 Intake Total 501 Balance 501 Weight 104.326 kg 104.326 kg Intake: IV 501 Other: Voiding Method Toilet # Voids 2 # Bowel Movements 2 - Exam General: non toxic, mild distress, appears at stated age, obese Derm: no rashes, no lesions Head: atraumatic, normocephalic, symmetric Eyes: EOMI, no lid lag, anicteric sclera ENT: no post nasal drip, no thrush Mouth: no lip lesion, mucus membranes moist Cardiovascular: S1S2 reg, no murmur, positive posterior tibial pulse bilateral, Lungs: CTA bilateral, no rhonchi, no rales , no accessory muscle use Abdominal: soft, nontender to palpation, no guarding, no appreciable organomegaly Ext: no gross muscle atrophy, no edema, no contractures, right lower extremity in dressing placed by orthopedic surgery Neuro: CN II-XI grossly intact, no focal neuro deficits Psych: Alert, oriented, appropriate affect - Labs CBC & Chem 7: 11/08/16 17:55 11/08/16 17:55 Labs: Abnormal Lab Results - Last 24 Hours (Table) 11/08/16 11/08/16 11/08/16 Range/Units 17:55 17:55 17:55 WBC 20.6 H (3.8-10.6) k/uL Hgb 16.4 H (11.4-16.0) gm/dL Hct 48.4 H (34.0-46.0) % Neutrophils # 19.1 H (1.3-7.7) k/uL Lymphocytes # 0.7 L (1.0-4.8) k/uL INR (<1.2) Sodium 136 L (137-145) mmol/L Carbon Dioxide 20 L (22-30) mmol/L Glucose 209 H (74-99) mg/dL POC Glucose (mg/dL) (75-99) mg/dL Hemoglobin A1c (4.2-6.1) % Plasma Lactic Acid Levon 2.5 H* (0.7-2.0) mmol/L Urine Ketones (Negative) 11/08/16 11/08/16 11/09/16 Range/Units 18:00 22:08 06:37 WBC (3.8-10.6) k/uL Hgb (11.4-16.0) gm/dL Hct (34.0-46.0) % Neutrophils # (1.3-7.7) k/uL Lymphocytes # (1.0-4.8) k/uL INR 1.2 H (<1.2) Sodium (137-145) mmol/L Carbon Dioxide (22-30) mmol/L Glucose (74-99) mg/dL POC Glucose (mg/dL) (75-99) mg/dL Hemoglobin A1c (4.2-6.1) % Plasma Lactic Acid Levon 2.2 H* (0.7-2.0) mmol/L Urine Ketones 1+ H (Negative) 11/09/16 11/09/16 Range/Units 06:37 11:10 WBC (3.8-10.6) k/uL Hgb (11.4-16.0) gm/dL Hct (34.0-46.0) % Neutrophils # (1.3-7.7) k/uL Lymphocytes # (1.0-4.8) k/uL INR (<1.2) Sodium (137-145) mmol/L Carbon Dioxide (22-30) mmol/L Glucose (74-99) mg/dL POC Glucose (mg/dL) 110 H (75-99) mg/dL Hemoglobin A1c 7.2 H (4.2-6.1) % Plasma Lactic Acid Levon (0.7-2.0) mmol/L Urine Ketones (Negative) Microbiology - Last 24 Hours (Table) 11/08/16 18:00 Urine Culture - Preliminary Urine,Voided Assessment and Plan Plan: #Probable septic arthritis-await cultures, continue Vancomycin, pharmacy to dose , ID consult, or throat recommendations #Diabetes mellitus type 2, [id number] sliding scale insulin, hemoglobin A1c 7.2 #Elevated lactic acid, resolved #Morbid obesity-continue with outpatient weight loss, status post gastric sleeve DVT prophylaxis: Heparin subcutaneous Discussed with: Patient, nursing Anticipated discharge: 3-[address]: Home versus [facility] A total of 45 minutes was spent on the care of this complex patient more than 50 % of the time was spent in counseling and care coordination.
[2016-11-09 17:22] LABS: Glucose,Whole Blood 116 mg/dL (75-99)
--- NOTE | 2016-11-09 17:47 | P.CONS ---
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 The patient relates that earlier this week because she was having severe pain to her right knee she underwent an arthroscopic evaluation and debridement of the joint and attempts to have her bit more functional and stay off a total knee arthroplasty. The procedure went well and she was having no difficulties into the sudden onset of the chills. She relates after she had her gastric sleeve performed she also had a bout of significant chills at that point in time she did have evidence of an intra-abdominal leak that required further surgery. At that time she did not have a fever but did have the chills. Because of the chills she did present to the emergency center with concerns that she may have an infection. She did have some significant diarrhea present shortly after admission and this was tested for C. diff and has come back as negative. This afternoon she is feeling better after her surgery. Having no further chills just some pain at the site from the surgical intervention. Review of Systems Pleasant 66-year-old woman who is quite comfortable at this time HEENT:Denies headache or acute visual change. Denies sinus or mouth discomforts. Denies neck stiffness or pain. Denies significant oral cavity pain. Denies difficulty on swallowing. Lungs: Denies significant shortness of breath, cough, sputum production, or hemoptysis. Cardiovascular: Denies significant shortness of breath, chest pain, chest wall pain, orthopnea, dyspnea on exertion, syncope Gastrointestinal:Denies nausea, vomiting, diarrhea, constipation, hematemesis, melena, hematochezia. No no significant change of bowel habit noticed. Musculoskeletal: As per the HPI has pain to the right knee. No other joints are bothering her. Denies any new back pain. Skin: Denies new rash or lesions. No new ulcers or wounds are related.. Neuro: Denies headache or visual change. Denies any new onset weakness or difficulty with ambulation. Denies falls or seizures. Psychiatric:Denies anxiety or depression. Endocrine: Denies significant fatigue, denies significant weight loss or weight gain. Past Medical History Past Medical History: GERD/Reflux, Hyperlipidemia, Osteoarthritis (OA) History of Any Multi-Drug Resistant Organisms: None Reported Past Surgical History: Adenoidectomy, Appendectomy, Cholecystectomy, Joint Replacement, Orthopedic Surgery, Tonsillectomy Additional Past Surgical History / Comment(s): knee surg gastric sleep Past Anesthesia/Blood Transfusion Reactions: Postoperative Nausea & Vomiting ( PONV) Past Psychological History: No Psychological Hx Reported Additional Psychological History / Comment(s): Single. no children. lives with her adult sister. Smoked for a bit when she was in the . History of internationally most recently was to [facility] a year ago. No illnesses during that trip. When she was in she was in [facility]. She was not ill and took the myriad of injections and medications. No animal exposures did not relate to being sexually active. Smoking Status: Never smoker Past Alcohol Use History: Occasional Past Drug Use History: None Reported - Past Family History Father Family Medical History: Cancer Additional Family Medical History / Comment(s): colon cancer Brother(s) Family Medical History: Cancer Additional Family Medical History / Comment(s): esophageal Mother Family Medical History: CVA/TIA, Myocardial Infarction (ME) Medications and Allergies Home Medications and Allergies Comment(s): Current Medications Hydrocodone Bitart/Acetaminophen ([facility] 7.5-325) 1 each PO Q6HR PRN PRN Reason: Moderate Pain Last Admin: 11/09/16 14:36 Dose: 1 each Atorvastatin Calcium (Lipitor) 20 mg PO HS [facility] Last Admin: 11/08/16 22:46 Dose: 20 mg Gabapentin (Neurontin) 800 mg PO BID [facility] Last Admin: 11/09/16 14:29 Dose: Not Given Heparin Sodium (Porcine) (Heparin) 5,000 unit SQ Q12HR [facility] Vancomycin HCl 1,750 mg/ (Sodium Chloride) 250 mls @ 125 mls/hr IVPB Q24H [facility] Lactated Ringer's (Lactated Ringers) 1,000 mls @ 20 mls/hr IV .Q24H [facility] Last Admin: 11/09/16 14:29 Dose: Not Given Insulin Human Lispro (Humalog) 0 unit SQ ACHS [facility] PRN Reason: Protocol Last Admin: 11/09/16 14:31 Dose: Not Given Meloxicam (Mobic) 7.5 mg PO DAILY [facility] Last Admin: 11/09/16 14:29 Dose: Not Given Pantoprazole Sodium (Protonix) 40 mg PO DAILY@0630 [facility] Last Admin: 11/09/16 06:17 Dose: 40 mg Home Medications Medication Instructions Recorded Confirmed Type Atorvastatin Calcium [Lipitor] 20 mg PO HS 10/29/16 11/08/16 History Esomeprazole Magnesium [NexIUM] 40 mg PO DAILY 10/29/16 11/08/16 History Gabapentin [Neurontin] 800 mg PO BID 10/29/16 11/08/16 History Meloxicam [Mobic] 7.5 mg PO DAILY 10/29/16 11/08/16 History Multivitamins, Thera [Multivitamin 1 tab PO DAILY 10/29/16 11/08/16 History (formulary)] EPINEPHrine [Epipen 2-Khurram] 0.3 mg PO ONCE PRN 11/08/16 11/08/16 History HYDROcodone/APAP 7.5-325MG [[facility] 1 tab PO Q6HR PRN 11/08/16 11/08/16 History 7.5] Allergies Allergy/AdvReac Type Severity Reaction Status Date / Time amoxicillin [From Augmentin] Allergy Nausea & Verified 11/08/16 17:24 Vomiting & Diarrhea bee pollen Allergy Dyspnea,WHE Verified 11/08/16 15:07 EZING cat dander Allergy Dyspnea Verified 11/08/16 17:24 clavulanic acid Allergy Nausea & Verified 11/08/16 17:24 [From Augmentin] Vomiting & Diarrhea Iodinated Contrast- Oral and Allergy Anaphylaxis Verified 11/08/16 17:24 IV Dye iodine Allergy Anaphylaxis Verified 11/08/16 17:24 latex Allergy Rash/Hives, Verified 11/08/16 17:24 ITCHING venom-honey bee Allergy Anaphylaxis Verified 11/08/16 17:24 Physical Exam Vitals: Vital Signs Temp Pulse Pulse Pulse Pulse Resp BP 11/09/16 17:30 64 16 11/09/16 15:00 97.9 F 64 16 11/09/16 12:15 98.6 F 58 L 16 11/09/16 11:50 59 L 16 11/09/16 11:35 56 L 16 11/09/16 11:20 58 L 16 11/09/16 11:05 99 F 63 16 11/09/16 10:08 98.9 F 63 16 11/09/16 08:04 98.1 F 63 16 11/09/16 08:00 64 16 11/09/16 07:00 98.1 F 63 16 11/09/16 00:00 69 18 11/08/16 23:54 98.3 F 69 18 11/08/16 21:21 131/80 11/08/16 21:08 98.3 F 73 20 11/08/16 19:00 72 18 125/72 BP Pulse Ox 11/09/16 17:30 11/09/16 15:00 116/63 94 L 11/09/16 12:15 126/59 100 11/09/16 11:50 97 11/09/16 11:35 99/60 99 11/09/16 11:20 117/61 99 11/09/16 11:05 123/61 95 11/09/16 10:08 126/59 98 11/09/16 08:04 137/64 94 L 11/09/16 08:00 11/09/16 07:00 137/64 94 L 11/09/16 00:00 11/08/16 23:54 124/60 11/08/16 21:21 11/08/16 21:08 11/08/16 19:00 97 Intake and Output 11/09/16 11/09/16 11/09/16 06:59 14:59 22:59 Intake Total 2306 Balance 2306 Intake: IV 501 Intake, IV Titration 725 Amount Lactated Ringers 1,000 ml 100 @ 20 mls/hr IV .Q24H [facility] Rx#:[id number] Sodium Chloride 0.9% 1, 375 000 ml @ 125 mls/hr IV . Q8H [facility] Rx#:[id number] Vancomycin 1,750 mg In 250 Sodium Chloride 0.9% 250 ml @ 125 mls/hr IVPB Q24H [facility] Rx#:[id number] Oral 1080 Other: Voiding Method Toilet Toilet Toilet # Voids 2 3 # Bowel Movements 2 Pleasant 66-year-old woman who suffers from obesity seems to be comfortable at this time. No active chills as of the moment HEENT: Anicteric conjunctiva are pink and moist nasal mucosa grossly intact without significant lesions, there is no thrush. Neck: The neck is supple without significant lymphadenopathy or thyromegaly. Lungs: Good bilateral air entry without significant crackles or wheezing. There is no significant bronchial sounds. There is no egophony or dullness. Heart: Regular rate and rhythm with an audible S1-S2, no S3 no S4. There is no significant murmur click or rub, PMI was nondisplaced. Abdomen: Positive bowel sounds soft and nontender without palpable masses or organomegaly. There was no guarding or rebound. Extremities: The upper extremities have excellent pulses they are symmetric, no significant petechiae or telangiectasia. No splinter hemorrhages were noted. T the left leg is intact without abnormalities. The right leg has evidence of the extensive postoperative wrap that was just applied from her surgery today. This is not removed due to surgery being just today. The foot is evaluated without swelling or lesions. No lymphadenopathy is noted inguinal or axillary supraclavicular or cervical Neuro: Awake alert oriented to person place and time. There are no acute new gross focal sensory motor deficits. Results CBC & Chem 7: 11/08/16 17:55 11/08/16 17:55 Labs: Abnormal Lab Results - Last 24 Hours (Table) 11/08/16 11/08/16 11/08/16 Range/Units 17:55 17:55 17:55 WBC 20.6 H (3.8-10.6) k/uL Hgb 16.4 H (11.4-16.0) gm/dL Hct 48.4 H (34.0-46.0) % Neutrophils # 19.1 H (1.3-7.7) k/uL Lymphocytes # 0.7 L (1.0-4.8) k/uL INR (<1.2) Sodium 136 L (137-145) mmol/L Carbon Dioxide 20 L (22-30) mmol/L Glucose 209 H (74-99) mg/dL POC Glucose (mg/dL) (75-99) mg/dL Hemoglobin A1c (4.2-6.1) % Plasma Lactic Acid Levon 2.5 H* (0.7-2.0) mmol/L Urine Ketones (Negative) 11/08/16 11/08/16 11/09/16 Range/Units 18:00 22:08 06:37 WBC (3.8-10.6) k/uL Hgb (11.4-16.0) gm/dL Hct (34.0-46.0) % Neutrophils # (1.3-7.7) k/uL Lymphocytes # (1.0-4.8) k/uL INR 1.2 H (<1.2) Sodium (137-145) mmol/L Carbon Dioxide (22-30) mmol/L Glucose (74-99) mg/dL POC Glucose (mg/dL) (75-99) mg/dL Hemoglobin A1c (4.2-6.1) % Plasma Lactic Acid Levon 2.2 H* (0.7-2.0) mmol/L Urine Ketones 1+ H (Negative) 11/09/16 11/09/16 11/09/16 Range/Units 06:37 11:10 17:20 WBC (3.8-10.6) k/uL Hgb (11.4-16.0) gm/dL Hct (34.0-46.0) % Neutrophils # (1.3-7.7) k/uL Lymphocytes # (1.0-4.8) k/uL INR (<1.2) Sodium (137-145) mmol/L Carbon Dioxide (22-30) mmol/L Glucose (74-99) mg/dL POC Glucose (mg/dL) 110 H 116 H (75-99) mg/dL Hemoglobin A1c 7.2 H (4.2-6.1) % Plasma Lactic Acid Levon (0.7-2.0) mmol/L Urine Ketones (Negative) Microbiology - Last 24 Hours (Table) 11/09/16 10:50 Wound Culture - Preliminary Knee - Right 11/09/16 10:50 Anaerobic Culture - Preliminary Knee - Right 11/08/16 18:00 Urine Culture - Preliminary Urine,Voided Laboratory Results WBC 20.6 k/uL (3.8-10.6) H 11/08/16 17:55 RBC 5.18 m/uL (3.80-5.40) 11/08/16 17:55 Hgb 16.4 gm/dL (11.4-16.0) H 11/08/16 17:55 Hct 48.4 % (34.0-46.0) H 11/08/16 17:55 MCV 93.5 fL (80.0-100.0) 11/08/16 17:55 MCH 31.6 pg (25.0-35.0) 11/08/16 17:55 MCHC 33.8 g/dL (31.0-37.0) 11/08/16 17:55 RDW 12.9 % (11.5-15.5) 11/08/16 17:55 Plt Count 294 k/uL (150-450) 11/08/16 17:55 Neutrophils % 93 % 11/08/16 17:55 Lymphocytes % 3 % 11/08/16 17:55 Monocytes % 2 % 11/08/16 17:55 Eosinophils % 1 % 11/08/16 17:55 Basophils % 0 % 11/08/16 17:55 Neutrophils # 19.1 k/uL (1.3-7.7) H 11/08/16 17:55 Lymphocytes # 0.7 k/uL (1.0-4.8) L 11/08/16 17:55 Monocytes # 0.5 k/uL (0-1.0) 11/08/16 17:55 Eosinophils # 0.1 k/uL (0-0.7) 11/08/16 17:55 Basophils # 0.1 k/uL (0-0.2) 11/08/16 17:55 PT 11.8 sec (9.0-12.0) 11/09/16 06:37 INR 1.2 (<1.2) H 11/09/16 06:37 Sodium 136 mmol/L (137-145) L 11/08/16 17:55 Potassium 4.3 mmol/L (3.5-5.1) 11/08/16 17:55 Chloride 104 mmol/L (98-107) 11/08/16 17:55 Carbon Dioxide 20 mmol/L (22-30) L 11/08/16 17:55 Anion Gap 12 mmol/L 11/08/16 17:55 BUN 15 mg/dL (7-17) 11/08/16 17:55 Creatinine 1.00 mg/dL (0.52-1.04) 11/08/16 17:55 Est GFR (MDRD) Af Amer >60 (>60 ml/min/1.73 sqM) 11/08/16 17:55 Est GFR (MDRD) Non-Af 56 (>60 ml/min/1.73 sqM) 11/08/16 17:55 Glucose 209 mg/dL (74-99) H 11/08/16 17:55 POC Glucose (mg/dL) 116 mg/dL (75-99) H 11/09/16 17:20 POC Glu [employer] ID Deandre, Anu 11/09/16 17:[address] Glu mg/dL 160 mg/dL 11/09/16 06:37 Hemoglobin A1c 7.2 % (4.2-6.1) H 11/09/16 06:37 Lactic Ac Sepsis Rflx Y 11/08/16 18:30 Plasma Lactic Acid Levon 2.2 mmol/L (0.7-2.0) H* 11/08/16 22:08 Calcium 9.6 mg/dL (8.4-10.2) 11/08/16 17:55 Total Bilirubin 1.1 mg/dL (0.2-1.3) 11/08/16 17:55 AST 33 U/L (14-36) 11/08/16 17:55 ALT 41 U/L (9-52) 11/08/16 17:55 Alkaline Phosphatase 95 U/L (38-126) 11/08/16 17:55 Total Protein 6.8 g/dL (6.3-8.2) 11/08/16 17:55 Albumin 4.0 g/dL (3.5-5.0) 11/08/16 17:55 Urine Color Yellow 11/08/16 18:00 Urine Appearance Clear (Clear) 11/08/16 18:00 Urine pH 5.5 (5.0-8.0) 11/08/16 18:00 Ur Specific [place] 1.014 (1.001-1.035) 11/08/16 18:00 Urine Protein Negative (Negative) 11/08/16 18:00 Urine Glucose (UA) Negative (Negative) 11/08/16 18:00 Urine Ketones 1+ (Negative) H 11/08/16 18:00 Urine Blood Negative (Negative) 11/08/16 18:00 Urine Nitrite Negative (Negative) 11/08/16 18:00 Urine Bilirubin Negative (Negative) 11/08/16 18:00 Urine Urobilinogen <2.0 mg/dL (<2.0) 11/08/16 18:00 Ur Leukocyte Esterase Negative (Negative) 11/08/16 18:00 C. difficile (EIA) Intrp Negative (Negative) 11/08/16 23:59 Microbiology 11/09/16 10:50 Knee - Right Wound Culture - Preliminary 11/09/16 10:50 Knee - Right Anaerobic Culture - Preliminary 11/08/16 18:00 Urine,Voided Urine Culture - Preliminary Assessment and Plan (1) Chills (without fever) Narrative/Plan: 66-year-old woman who has a history of degenerative joint disease underwent arthroscopic evaluation and repair of her right knee earlier this week. She was covering well and getting up on her walk without great difficulties. She has sudden onset of chills. It lasted about 4 hours. Because she was so miserable and her history of having chills after another surgery she presented to the emergency center. There she was found evidence of a significant leukocytosis and elevated lactic acid. She Has Been Admitted. Received Some Fluids and Infectious Disease Consultation Was Requested. Stool for C. diff Has Come Back As Negative Given the Diarrhea That She Was Having. At this time she is feeling better after her most recent surgery. While cultures are process vancomycin therapy will be initiated. We'll also follow-up lactic acid to make sure it has normalized. Fortunately patient is feeling better. Status: Acute (2) Status post arthroscopic surgery of right knee Status: Acute
[2016-11-09] MEDS: ATORVASTATIN 20 MG TAB PO SCH (22:17)
[2016-11-09] MEDS: VANCOMYCIN 1,750 MG in SODIUM CHLORIDE 0.9% 250 ML IVPB SCH (22:17)
[2016-11-09 22:36] LABS: Glucose,Whole Blood 110 mg/dL (75-99)
[2016-11-09] MEDS: HEPARIN SODIUM,PORCINE 5,000 UNIT/ML 1 ML VIAL SQ SCH (22:36)
[2016-11-10] MEDS: PANTOPRAZOLE 40 MG TABLET PO SCH (06:13)
[2016-11-10 07:42] LABS: Basophils % (A) 0 %; CH 30.9; CHCM 32.9; Eosinophils # (A) 0.3 k/uL (0-0.7); Eosinophils % (A) 4 %; HCT 38.7 % (34.0-46.0); HDW 2.33; Luc # (Auto) 0.18; Luc % (Auto) 2; Lymphocytes # (A) 2.2 k/uL (1.0-4.8); Lymphocytes % (A) 28 %; MCH 31.6 pg (25.0-35.0); MCHC 33.5 g/dL (31.0-37.0); MCV 94.4 fL (80.0-100.0); Mean Platelet Volume 7.3; Monocytes # (A) 0.4 k/uL (0-1.0); Monocytes % (A) 6 %; Neutrophils # (A) 4.7 k/uL (1.3-7.7); Neutrophils % (A) 60 %; RDW 12.4 % (11.5-15.5); WBC 7.9 k/uL (3.8-10.6); WBC (Perox) 7.69
[2016-11-10 07:46] LABS: Anion Gap 5 mmol/L; Blood Urea Nitrogen 11 mg/dL (7-17); Calcium 8.5 mg/dL (8.4-10.2); Carbon Dioxide 26 mmol/L (22-30); Chloride 108 mmol/L (98-107); Glucose 97 mg/dL (74-99); Non-African American GFR(MDRD) 51 (>60 ml/min/1.73 sqM); Potassium 4.4 mmol/L (3.5-5.1); Sodium 139 mmol/L (137-145)
[2016-11-10] MEDS: INSULIN LISPRO (humaLOG) 300 UNIT/3 ML VIAL SQ SCH ×4 (08:10→20:51)
[2016-11-10 08:17] LABS: Glucose,Whole Blood 95 mg/dL (75-99)
[2016-11-10] MEDS: MELOXICAM 7.5 MG TAB PO SCH (09:27)
[2016-11-10] MEDS: HEPARIN SODIUM,PORCINE 5,000 UNIT/ML 1 ML VIAL SQ SCH ×2 (09:28→20:51)
[2016-11-10] MEDS: GABAPENTIN 400 MG CAP PO SCH ×2 (09:28→20:51)
--- NOTE | 2016-11-10 10:37 | P.PN ---
Progress Note - Text S: The patient has no complaints. They deny shortness of breath or chest pain. She denies any fevers or chills. She is up ambulating. O: Afebrile, vital signs stable Homans negative right lower extremity Distal neurovascular status intact in the right lower extremity Dressing in place right lower extremity White blood cell count normalized A/P: Postoperative day 1 status post irrigation and debridement right knee. Continue IV antibiotics per infectious disease. Awaiting culture results. The patient is clinically significantly improving.
[2016-11-10] MEDS: LACTATED RINGERS 1,000 ML IV SCH (13:56)
[2016-11-10] MEDS: HYDROcodone/APAP 7.5-325MG 1 EACH TAB PO PRN (14:04)
[2016-11-10] MEDS ORDERED: DOCUSATE 100 MG CAP PO PRN (15:18)
--- NOTE | 2016-11-10 17:06 | P.PN ---
Subjective Principal diagnosis: Chills Patient is a 66-year-old female history of morbid obesity, osteoarthritis, and diet-controlled diabetes mellitus type 2 who presented with chills after having undergone right knee arthroscopic surgery 5 days prior. In the ER she was found to have an elevated white blood cell count and riders. There was concern for possible septic arthritis. On the morning of 11/09 she underwent irrigation of right with cultures. Infectious disease consult that recommended continuing vancomycin. Cultures are currently negative to date. Patient seen and examined at bedside. Delayed charting patient seen at approximately 12:30 PM. Much better today. She feels much better overall. She denies any nausea, vomiting, diarrhea. She has no chest pain or shortness of breath. Objective - Vital Signs Vital signs: Vital Signs Temp 98 F 11/10/16 15:00 Pulse 60 11/10/16 16:00 Resp 16 11/10/16 16:00 BP 98/53 11/10/16 15:00 Pulse Ox 95 11/10/16 15:00 Intake & Output 11/09/16 11/10/16 11/10/16 18:59 06:59 18:59 Intake Total 2306 Balance 2306 Intake: IV 501 Intake, IV Titration 725 Amount Lactated Ringers 1,000 ml 100 @ 20 mls/hr IV .Q24H [facility] Rx#:[id number] Sodium Chloride 0.9% 1, 375 000 ml @ 125 mls/hr IV . Q8H [facility] Rx#:[id number] Vancomycin 1,750 mg In 250 Sodium Chloride 0.9% 250 ml @ 125 mls/hr IVPB Q24H [facility] Rx#:[id number] Oral 1080 Other: Voiding Method Toilet Toilet Toilet # Voids 3 1 3 - Exam General: non toxic, mild distress, appears at stated age, obese Derm: no rashes, no lesions Head: atraumatic, normocephalic, symmetric Eyes: EOMI, no lid lag, anicteric sclera ENT: no post nasal drip, no thrush Mouth: no lip lesion, mucus membranes moist Cardiovascular: S1S2 reg, no murmur, positive posterior tibial pulse bilateral, Lungs: CTA bilateral, no rhonchi, no rales , no accessory muscle use Abdominal: soft, nontender to palpation, no guarding, no appreciable organomegaly Ext: no gross muscle atrophy, no edema, no contractures, right lower extremity in dressing placed by orthopedic surgery Neuro: CN II-XI grossly intact, no focal neuro deficits Psych: Alert, oriented, appropriate affect - Labs CBC & Chem 7: 11/10/16 06:32 11/10/16 06:32 Labs: Abnormal Lab Results - Last 24 Hours (Table) 11/09/16 11/09/16 11/10/16 Range/Units 17:20 22:34 06:32 Chloride 108 H (98-107) mmol/L Creatinine 1.08 H (0.52-1.04) mg/dL POC Glucose (mg/dL) 116 H 110 H (75-99) mg/dL Microbiology - Last 24 Hours (Table) 11/09/16 10:50 Gram Stain - Preliminary Knee - Right Wound Culture - Preliminary 11/08/16 18:00 Urine Culture - Preliminary Urine,Voided Gram Neg Bacilli 11/08/16 17:55 Blood Culture - Preliminary Blood No Growth after 24 hours 11/09/16 10:50 Anaerobic Culture - Preliminary Knee - Right Assessment and Plan Plan: #Probable septic arthritis-await cultures, continue Vancomycin, pharmacy to dose , ID recommendations, or ortho recommendations #Diabetes mellitus type 2, amdy-btyiuenjey-qeyjucgi sliding scale insulin, hemoglobin A1c 7.2, patient does not want to initiate any oral therapy for diabetes at this time. She has been able to control with diet and the past but has been taking more carbs. She has requested a glucometer prior to discharge ranged with case management. She will follow up with her primary care doctor and make a long of her blood sugars. #Elevated lactic acid, resolved #Morbid obesity-continue with outpatient weight loss, status post gastric sleeve #Suspect aymptomatic bacteruria- was only 50,000 colonies, patient asymptomatic , await final cultures, await ID recommendations DVT prophylaxis: Heparin subcutaneous Discussed with: Patient, nursing Anticipated discharge: 24-[address]: Home A total of 25 minutes was spent on the care of this complex patient more than 50 % of the time was spent in counseling and care coordination.
[2016-11-10 17:15] LABS: Glucose,Whole Blood 102 mg/dL (75-99)
[2016-11-10] MEDS: VANCOMYCIN 1,750 MG in SODIUM CHLORIDE 0.9% 250 ML IVPB SCH (19:25)
[2016-11-10] MEDS: ATORVASTATIN 20 MG TAB PO SCH (20:52)
[2016-11-11] MEDS: HYDROcodone/APAP 7.5-325MG 1 EACH TAB PO PRN (01:41)
[2016-11-11] MEDS: PANTOPRAZOLE 40 MG TABLET PO SCH (06:17)
[2016-11-11 07:04] LABS: Glucose,Whole Blood 105 mg/dL (75-99)
[2016-11-11] MEDS: INSULIN LISPRO (humaLOG) 300 UNIT/3 ML VIAL SQ SCH ×2 (07:14→11:25)
[2016-11-11 07:24] VITALS: RESP 16
[2016-11-11 07:57] LABS: CH 31.8; CHCM 33.5; HCT 39.8 % (34.0-46.0); HDW 2.32; HGB 13.2 gm/dL (11.4-16.0); MCH 31.6 pg (25.0-35.0); MCHC 33.1 g/dL (31.0-37.0); MCV 95.4 fL (80.0-100.0); RBC 4.17 m/uL (3.80-5.40); RDW 12.9 % (11.5-15.5)
[2016-11-11 08:10] LABS: Anion Gap 4 mmol/L; Blood Urea Nitrogen 13 mg/dL (7-17); Calcium 8.6 mg/dL (8.4-10.2); Carbon Dioxide 24 mmol/L (22-30); Chloride 110 mmol/L (98-107); Glucose 107 mg/dL (74-99); Non-African American GFR(MDRD) 56 (>60 ml/min/1.73 sqM); Potassium 4.3 mmol/L (3.5-5.1); Sodium 138 mmol/L (137-145)
[2016-11-11] MEDS: GABAPENTIN 400 MG CAP PO SCH (08:35)
[2016-11-11] MEDS: MELOXICAM 7.5 MG TAB PO SCH (08:35)
[2016-11-11] MEDS: HEPARIN SODIUM,PORCINE 5,000 UNIT/ML 1 ML VIAL SQ SCH (08:35)
[2016-11-11 11:31] LABS: Glucose,Whole Blood 111 mg/dL (75-99)
[2016-11-11 14:42] VITALS: BP 112/58; PULSE 50; TEMP 97.6
--- NOTE | 2016-11-11 17:02 | P.PN ---
Progress Note - Text S: The patient has no complaints. They deny shortness of breath or chest pain. She denies fevers or chills. She feels much better and is ambulating without assistance. O: Afebrile, vital signs stable Homans [negative] lower extremity Distal neurovascular status intact in the operative extremity Portals intact right knee No warmth or erythema Knee cultures showed no evidence of growth at 48 hours Urine cultures positive A/P: Status post I&D right knee Urinary tract infection/sepsis Oral antibiotics per infectious disease. Weight-bear as tolerated right lower extremity. Keep wounds clean and dry. Follow up as scheduled November 20.
[2016-11-11] MEDS ORDERED: VANCOMYCIN TROUGH DUE 1 EACH MISC MISCELLANE ONE (18:00)
--- NOTE | 2016-11-11 18:19 | P.DS ---
Providers Date of admission: 11/08/16 20:56 Expected date of discharge: 11/11/16 Attending physician: Perfecto Hyde MD Consults: 11/08/16 19:36 Consult Physician Urgent Consulting Provider: Suresh Winchester Consult Reason/Comments: Status post right knee surgery Do you want consulting provider notified?: Yes 11/09/16 11:01 Consult Physician Routine Consulting Provider: Winston Villalta Consult Reason/Comments: antibiotic treatment Do you want consulting provider notified?: Already Contacted Primary care physician: Jameson Diaz - Discharge Diagnosis(es) (1) Chills (without fever) Status: Acute (2) DM type 2 (diabetes mellitus, type 2) Status: Acute (3) Leukocytosis Status: Acute (4) Morbid obesity Status: Acute (5) UTI (urinary tract infection) Status: Acute Hospital Course: Patient is a 66-year-old female history of morbid obesity, osteoarthritis, and diet-controlled diabetes mellitus type 2 who presented with chills after having undergone right knee arthroscopic surgery 5 days prior. In the ER she was found to have an elevated white blood cell count and riders. There was concern for possible septic arthritis. On the morning of 11/09 she underwent irrigation of right with cultures. Infectious disease consult that recommended continuing vancomycin. Cultures washout showed no growth. Her urine culture did grow Hafnia it was reviewed by ID who recommended treating her urinary tract infection with Bactrim. He did not feel that she had septic arthritis. Her white count had resolved, she had no documented fevers during her hospitalization. She was determined stable for discharge home. Her hemoglobin A1c was found to be slightly elevated at 7.2 area after a long discussion she elected not to start oral therapy but to proceed with dietary modifications. She was provided with a glucometer to check her sugars twice daily and log them to bring to her primary care physician's appointment. She also was provided a walker. She was determined stable for discharge home. She will follow-up with her primary care provider and Dr. Winchester on November 20. Patient seen and examined at bedside multiple times throughout the day. Knee pain, no residual chills, no residual nausea. General: non toxic, no distress, appears at stated age Derm: no rashes, no lesions, Steri-Strips in place over right knee Head: atraumatic, normocephalic, symmetric Eyes: EOMI, no lid lag, anicteric sclera ENT: no post nasal drip, no thrush Mouth: no lip lesion, mucus membranes moist Cardiovascular: S1S2 reg, no murmur, positive posterior tibial pulse bilateral, Lungs: CTA bilateral, no rhonchi, no rales , no accessory muscle use Abdominal: soft, nontender to palpation, no guarding, no appreciable organomegaly Ext: no gross muscle atrophy, no edema, no contractures Neuro: CN II-XI grossly intact, no focal neuro deficits Psych: Alert, oriented, appropriate affect Total of 36 minutes was spent preparing this complex discharge summary, including remaining care with specialist, and education for the patient. Patient Condition at Discharge: Fair Plan - Discharge Summary New Discharge Prescriptions: New Sulfamethox-Tmp 800-160Mg [Bactrim DS 800-160 mg] 1 tab PO Q12HR #14 tab Continue Multivitamins, Thera [Multivitamin (formulary)] 1 tab PO DAILY Gabapentin [Neurontin] 800 mg PO BID Atorvastatin Calcium [Lipitor] 20 mg PO HS Esomeprazole Magnesium [NexIUM] 40 mg PO DAILY Meloxicam [Mobic] 7.5 mg PO DAILY HYDROcodone/APAP 7.5-325MG [[place] 7.5-325] 1 tab PO Q6HR PRN PRN Reason: Pain EPINEPHrine [Epipen 2-Khurram] 0.3 mg PO ONCE PRN PRN Reason: Anaphylaxis Discharge Medication List Atorvastatin Calcium [Lipitor] 20 mg PO HS 10/29/16 [History] Esomeprazole Magnesium [NexIUM] 40 mg PO DAILY 10/29/16 [History] Gabapentin [Neurontin] 800 mg PO BID 10/29/16 [History] Meloxicam [Mobic] 7.5 mg PO DAILY 10/29/16 [History] Multivitamins, Thera [Multivitamin (formulary)] 1 tab PO DAILY 10/29/16 [History ] EPINEPHrine [Epipen 2-Khurram] 0.3 mg PO ONCE PRN 11/08/16 [History] HYDROcodone/APAP 7.5-325MG [[place] 7.5-325] 1 tab PO Q6HR PRN 11/08/16 [History] Sulfamethox-Tmp 800-160Mg [Bactrim DS 800-160 mg] 1 tab PO Q12HR #14 tab [Rx] Follow up Appointment(s)/Referral(s): [facility], [NON-STAFF] - 1 Week Jameson Diaz MD [Primary Care Provider] - 1-2 days (Patient to call Dr. Diaz's office Friday to schedule follow up appointment. The office is closed at time of discharge. ) Suresh Winchester MD [STAFF PHYSICIAN] - 11/20/16 (keep current appointment ) Patient Instructions/Handouts: Sulfamethoxazole/Trimethoprim (By mouth), Leukocytosis (DC), Septic Arthritis (DC) Activity/Diet/Wound Care/Special Instructions: activity as tolerated Carb consistent diet Take blood sugars twice daily and make a log. Discharge Disposition: HOME WITH HOME HEALTH SERVICES Pending Studies Pending Results: None
--- NOTE | 2016-11-11 20:49 | P.PN ---
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 The patient relates that earlier this week because she was having severe pain to her right knee she underwent an arthroscopic evaluation and debridement of the joint and attempts to have her bit more functional and stay off a total knee arthroplasty. The procedure went well and she was having no difficulties into the sudden onset of the chills. She relates after she had her gastric sleeve performed she also had a bout of significant chills at that point in time she did have evidence of an intra-abdominal leak that required further surgery. At that time she did not have a fever but did have the chills. Because of the chills she did present to the emergency center with concerns that she may have an infection. She did have some significant diarrhea present shortly after admission and this was tested for C. diff and has come back as negative. This afternoon she is feeling better after her surgery. Having no further chills just some pain at the site from the surgical intervention. Feeling considerably better today. Pain to the right knee is improving. Denies further chills. No fevers. Denies other new acute symptoms at this time. She is anxious for discharge if possible. Objective - Vital Signs Vital signs: Vital Signs Temp 97.6 F 11/11/16 14:41 Pulse 50 L 11/11/16 16:00 Resp 16 11/11/16 16:00 BP 112/58 11/11/16 14:41 Pulse Ox 96 11/11/16 14:41 Intake & Output 11/11/16 11/11/16 11/12/16 06:59 18:59 06:59 Intake Total 240 540 Balance 240 540 Weight 104.326 kg Intake: Oral 240 540 Other: Voiding Method Toilet Toilet # Voids 1 - Exam Pleasant 66-year-old woman who suffers from obesity seems to be comfortable at this time. No active chills as of the moment HEENT: Anicteric conjunctiva are pink and moist nasal mucosa grossly intact without significant lesions, there is no thrush. Neck: The neck is supple without significant lymphadenopathy or thyromegaly. Lungs: Good bilateral air entry without significant crackles or wheezing. There is no significant bronchial sounds. There is no egophony or dullness. Heart: Regular rate and rhythm with an audible S1-S2, no S3 no S4. There is no significant murmur click or rub, PMI was nondisplaced. Abdomen: Positive bowel sounds soft and nontender without palpable masses or organomegaly. There was no guarding or rebound. Extremities: The upper extremities have excellent pulses they are symmetric, no significant petechiae or telangiectasia. No splinter hemorrhages were noted. T the left leg is intact without abnormalities. The right lower extremity shows evidence of the recent intervention to the joint. No evidence of any drainage from the ports. No evidence of any erythema. Mildly decreased range of motion. There is minimal warmth without erythema. There is no expressible drainage. No lymphadenopathy is noted inguinal or axillary supraclavicular or cervical Neuro: Awake alert oriented to person place and time. There are no acute new gross focal sensory motor deficits. - Labs CBC & Chem 7: 11/11/16 07:36 11/11/16 07:36 Labs: Abnormal Lab Results - Last 24 Hours (Table) 11/11/16 11/11/16 11/11/16 Range/Units 06:53 07:36 11:21 Chloride 110 H (98-107) mmol/L Glucose 107 H (74-99) mg/dL POC Glucose (mg/dL) 105 H 111 H (75-99) mg/dL Microbiology - Last 24 Hours (Table) 11/08/16 17:55 Blood Culture - Preliminary Blood No Growth after 72 hours 11/09/16 10:50 Anaerobic Culture - Preliminary Knee - Right 11/09/16 10:50 Gram Stain - Final Knee - Right Wound Culture - Final 11/08/16 18:00 Urine Culture - Final Urine,Voided Hafnia alvei Laboratory Results WBC 6.0 k/uL (3.8-10.6) 11/11/16 07:36 RBC 4.17 m/uL (3.80-5.40) 11/11/16 07:36 Hgb 13.2 gm/dL (11.4-16.0) 11/11/16 07:36 Hct 39.8 % (34.0-46.0) 11/11/16 07:36 MCV 95.4 fL (80.0-100.0) 11/11/16 07:36 MCH 31.6 pg (25.0-35.0) 11/11/16 07:36 MCHC 33.1 g/dL (31.0-37.0) 11/11/16 07:36 RDW 12.9 % (11.5-15.5) 11/11/16 07:36 Plt Count 234 k/uL (150-450) 11/11/16 07:36 Neutrophils % 60 % 11/10/16 06:32 Lymphocytes % 28 % 11/10/16 06:32 Monocytes % 6 % 11/10/16 06:32 Eosinophils % 4 % 11/10/16 06:32 Basophils % 0 % 11/10/16 06:32 Neutrophils # 4.7 k/uL (1.3-7.7) 11/10/16 06:32 Lymphocytes # 2.2 k/uL (1.0-4.8) 11/10/16 06:32 Monocytes # 0.4 k/uL (0-1.0) 11/10/16 06:32 Eosinophils # 0.3 k/uL (0-0.7) 11/10/16 06:32 Basophils # 0.0 k/uL (0-0.2) 11/10/16 06:32 PT 11.8 sec (9.0-12.0) 11/09/16 06:37 INR 1.2 (<1.2) H 11/09/16 06:37 Sodium 138 mmol/L (137-145) 11/11/16 07:36 Potassium 4.3 mmol/L (3.5-5.1) 11/11/16 07:36 Chloride 110 mmol/L (98-107) H 11/11/16 07:36 Carbon Dioxide 24 mmol/L (22-30) 11/11/16 07:36 Anion Gap 4 mmol/L 11/11/16 07:36 BUN 13 mg/dL (7-17) 11/11/16 07:36 Creatinine 0.99 mg/dL (0.52-1.04) 11/11/16 07:36 Est GFR (MDRD) Af Amer >60 (>60 ml/min/1.73 sqM) 11/11/16 07:36 Est GFR (MDRD) Non-Af 56 (>60 ml/min/1.73 sqM) 11/11/16 07:36 Glucose 107 mg/dL (74-99) H 11/11/16 07:36 POC Glucose (mg/dL) 111 mg/dL (75-99) H 11/11/16 11:21 POC Glu Television [employer] Repairer ID Sharon Camargo M 11/11/16 11:[address] Glu mg/dL 160 mg/dL 11/09/16 06:37 Hemoglobin A1c 7.2 % (4.2-6.1) H 11/09/16 06:37 Lactic Ac Sepsis Rflx Y 11/08/16 18:30 Plasma Lactic Acid Levon 1.2 mmol/L (0.7-2.0) 11/09/16 18:45 Calcium 8.6 mg/dL (8.4-10.2) 11/11/16 07:36 Total Bilirubin 1.1 mg/dL (0.2-1.3) 11/08/16 17:55 AST 33 U/L (14-36) 11/08/16 17:55 ALT 41 U/L (9-52) 11/08/16 17:55 Alkaline Phosphatase 95 U/L (38-126) 11/08/16 17:55 Total Protein 6.8 g/dL (6.3-8.2) 11/08/16 17:55 Albumin 4.0 g/dL (3.5-5.0) 11/08/16 17:55 Urine Color Yellow 11/08/16 18:00 Urine Appearance Clear (Clear) 11/08/16 18:00 Urine pH 5.5 (5.0-8.0) 11/08/16 18:00 Ur Specific [place] 1.014 (1.001-1.035) 11/08/16 18:00 Urine Protein Negative (Negative) 11/08/16 18:00 Urine Glucose (UA) Negative (Negative) 11/08/16 18:00 Urine Ketones 1+ (Negative) H 11/08/16 18:00 Urine Blood Negative (Negative) 11/08/16 18:00 Urine Nitrite Negative (Negative) 11/08/16 18:00 Urine Bilirubin Negative (Negative) 11/08/16 18:00 Urine Urobilinogen <2.0 mg/dL (<2.0) 11/08/16 18:00 Ur Leukocyte Esterase Negative (Negative) 11/08/16 18:00 C. difficile (EIA) Intrp Negative (Negative) 11/08/16 23:59 Microbiology 11/08/16 17:55 Blood Blood Culture - Preliminary No Growth after 72 hours 11/09/16 10:50 Knee - Right Anaerobic Culture - Preliminary 11/09/16 10:50 Knee - Right Gram Stain - Final 11/09/16 10:50 Knee - Right Wound Culture - Final 11/08/16 18:00 Urine,Voided Urine Culture - Final Hafnia alvei Assessment and Plan (1) Chills (without fever) Narrative/Plan: 66-year-old woman who has a history of degenerative joint disease underwent arthroscopic evaluation and repair of her right knee earlier this week. She was covering well and getting up on her walk without great difficulties. She has sudden onset of chills. It lasted about 4 hours. Because she was so miserable and her history of having chills after another surgery she presented to the emergency center. There she was found evidence of a significant leukocytosis and elevated lactic acid. She Has Been Admitted. Received Some Fluids and Infectious Disease Consultation Was Requested. Stool for C. diff Has Come Back As Negative Given the Diarrhea That She Was Having. At this time she is feeling better after her most recent surgery. While cultures were process was being treated with vancomycin with concerns to infection related to the right knee. Her lactic acid normalized with resuscitation. Exam the patient is improved. Her chills are resolved. Her leukocytosis has resolved. It appears that she likely had a urinary tract infection with Srinifavril alvei as a pathogen. Will be discharged home on oral antibiotic therapy with Bactrim which she tolerated very well in the past. A follow-up in the office if she has any acute difficulties with follow with her primary care physician in the next few days. Case discussed with the hospitalist. Status: Acute (2) Status post arthroscopic surgery of right knee Status: Acute
== END 2016-11-11 17:50 | disposition home health service (06) | DRG 908 ==
LOC: SUPCPDRO 14:58 → EC 14:58 → 5MS5E 20:56
PROVIDERS: ADMIT Internal Medicine; ATTEND Internal Medicine
PROC: 3E1U38X Irrigation of Joints using Irrigating Substance, Percutaneous Approach, Diagnostic (ICD-10-PCS; 2016-11-09)
PROC: 0SBC4ZZ Excision of Right Knee Joint, Percutaneous Endoscopic Approach (ICD-10-PCS; principal; 2016-11-09 10:15)
DX: T81.89XA Other complications of procedures, not elsewhere classified, initial encounter (principal); N39.0 Urinary tract infection, site not specified; Z68.41 Body mass index [BMI] 40.0-44.9, adult; E11.9 Type 2 diabetes mellitus without complications; B96.89 Other specified bacterial agents as the cause of diseases classified elsewhere; M96.89 Other intraoperative and postprocedural complications and disorders of the musculoskeletal system; E66.01 Morbid (severe) obesity due to excess calories; M65.861 Other synovitis and tenosynovitis, right lower leg; M25.461 Effusion, right knee; D72.829 Elevated white blood cell count, unspecified; M17.11 Unilateral primary osteoarthritis, right knee; G89.18 Other acute postprocedural pain; R11.0 Nausea; E78.5 Hyperlipidemia, unspecified; R68.89 Other general symptoms and signs; R68.83 Chills (without fever); R19.7 Diarrhea, unspecified; G43.909 Migraine, unspecified, not intractable, without status migrainosus; K21.9 Gastro-esophageal reflux disease without esophagitis; Z98.84 Bariatric surgery status; Z79.899 Other long term (current) drug therapy; Z82.49 Family history of ischemic heart disease and other diseases of the circulatory system; Z80.0 Family history of malignant neoplasm of digestive organs; Z87.891 Personal history of nicotine dependence; Z79.1 Long term (current) use of non-steroidal anti-inflammatories (NSAID); Z79.891 Long term (current) use of opiate analgesic; Z82.3 Family history of stroke; Z90.49 Acquired absence of other specified parts of digestive tract; Z96.60 Presence of unspecified orthopedic joint implant; Z88.1 Allergy status to other antibiotic agents; Z91.030 Bee allergy status; Z91.041 Radiographic dye allergy status; Z91.040 Latex allergy status; Z88.0 Allergy status to penicillin; Z91.048 Other nonmedicinal substance allergy status
CPT/HCPCS: 36415; 71020; 80048; 80053; 81003; 83036; 83605; 85025; 85027; 85610; 87040; 87070; 87075; 87077; 87086; 87186; 87205; 87324; 96365; 96366; 96368; 96375; 99284

== ENCOUNTER → 2017-04-10 | Outpatient (CLI) | payer MEDICARE ==
[2017-04-10 15:14] LABS: Prothrombin Time 9.8 sec (9.0-12.0)
== END | disposition home or self-care (01) ==
LOC: LABPAT 14:45
PROVIDERS: ATTEND Orthopaedic Surgery
DX: Z01.812 Encounter for preprocedural laboratory examination (principal); M17.11 Unilateral primary osteoarthritis, right knee
CPT/HCPCS: 36415; 85610; 87070

== ENCOUNTER → 2017-04-16 | Outpatient (CLI) | payer MEDICARE ==
--- NOTE | 2017-04-17 10:29 | MM ---
Reason for exam: screening (asymptomatic). Last mammogram was performed 1 year and 1 month ago. History: Patient is postmenopausal and is nulliparous. Physical Findings: A clinical breast exam by your physician is recommended on an annual basis and results should be correlated with mammographic findings. MG Screening Mammo w CAD Bilateral CC and MLO view(s) were taken. Prior study comparison: March 12, 2016, mammogram, performed at [facility]. There are scattered fibroglandular densities. No suspicious abnormality. No significant changes when compared with prior studies. ASSESSMENT: Negative, BI-RAD 1 RECOMMENDATION: Routine screening mammogram of both breasts in 1 year.
== END | disposition home or self-care (01) ==
LOC: RADMAMWWP 09:24
PROVIDERS: ATTEND Internal Medicine
DX: Z12.31 Encounter for screening mammogram for malignant neoplasm of breast (principal)
CPT/HCPCS: 77067

== ENCOUNTER 2017-04-28 11:53 | Inpatient (IN) | payer MEDICARE ==
[2017-04-22 17:24] VITALS: BMI 43.9
--- NOTE | 2017-04-27 14:30 | HP ---
HISTORY AND PHYSICAL Dater of surgery 04/28/2017. Jo Aranda is a 67-year-old patient seen with symptomatic right knee osteoarthritis. Treatment options were discussed. She elected to proceed with right total knee arthroplasty. Consent was obtained. Medical clearance was provided by Dr. Diaz. PAST MEDICAL HISTORY: Is fxp-brtgxqu-xfjdihyfu diabetes, hyperlipidemia, hypertension. PAST SURGICAL HISTORY: Cholecystectomy, appendectomy, tonsillectomy, right total hip arthroplasty, right knee arthroscopy. MEDICATIONS: Lipitor, Neurontin, Nexium. ALLERGIES: LEVAQUIN, LATEX, IODINE, IVP DYES, AUGMENTIN. SOCIAL HISTORY: Patient denies tobacco use. PHYSICAL EVALUATION RIGHT KNEE: Full range of motion 0 to 120 degrees. Tenderness along the medial joint line. Crepitus medial patellofemoral compartments with range of motion. Pain with patellofemoral compression. Ligaments are stable. Hip rotation without pain. Distal neurovascular exam is intact. RIGHT KNEE RADIOGRAPHS: Revealed moderate to severe medial compartment and moderate to severe patellofemoral compartment osteoarthritis. IMPRESSION: 1. Right knee osteoarthritis. 2. Wta-qmcjofy-adhuaqlip diabetes. 3. Hyperlipidemia. 4. Hypertension. PLAN: Right total knee arthroplasty. MMODL / IJN: [id number] /
[~2017-04-28 11:53] MED LIST changes: +ACETAMINOPHEN TAB 500 MG TAB PO ONE; -DEXAMETHASONE SOD PHOSPHATE 10 MG/ML 1 ML VIAL IV ONE; +HYDROmorphone 0.5 MG/0.5 ML SYRINGE IVP PRN; -LACTATED RINGERS 1,000 ML IV SCH; +MELOXICAM 7.5 MG TAB PO ONE; -SCOPOLAMINE 1.5MG/72HR PATCH TRANSDERM ONE; +TRANEXAMIC ACID 1,000 MG in SODIUM CHLORIDE 0.9% 50 ML IVPB ONE; +VANCOMYCIN 1,750 MG in SODIUM CHLORIDE 0.9% 250 ML IVPB ONE; -ceFAZolin 2 GM in SODIUM CHLORIDE 0.9% 100 ML IVPB ONE
[2017-04-28] MEDS: LACTATED RINGERS 1,000 ML IV SCH (13:25)
[2017-04-28 13:34] LABS: Glucose,Whole Blood 104 mg/dL (75-99)
[2017-04-28] MEDS ORDERED: MIDAZOLAM 2 MG/2 ML VIAL IVP ONE (15:01)
[2017-04-28] MEDS ORDERED: ROPIVACAINE 246.25 MG, EPINEPHrine 0.5 MG, KETOROLAC 30 MG, cloNIDine HCL/PF 80 MCG, WA... MISCELLANE ONE ×10 (15:20→15:35)
[2017-04-28] MEDS ORDERED: fentaNYL (PF) 50 MCG/ML 2 ML AMP ONE (15:53)
[2017-04-28] MEDS ORDERED: MIDAZOLAM 2 MG/2 ML VIAL ONE (15:53)
[2017-04-28] MEDS ORDERED: LIDOCAINE 1% INJ 10MG/ML (20 ML MDV) ONE (15:53)
[2017-04-28] MEDS ORDERED: PROPOFOL 10 MG/ML 20 ML VIAL IV ONE (15:53)
[2017-04-28] MEDS ORDERED: NALOXONE 0.4 MG/ML 1 ML VIAL IV PRN (18:01)
[2017-04-28] MEDS ORDERED: HYDROcodone/APAP 7.5-325MG 1 EACH TAB PO PRN (18:01)
[2017-04-28] MEDS ORDERED: HYDROmorphone 0.5 MG/0.5 ML SYRINGE IVP PRN ×2 (18:01)
[2017-04-28] MEDS ORDERED: hydrOXYzine PAMOATE 25 MG CAP PO PRN (18:01)
[2017-04-28] MEDS ORDERED: ONDANSETRON 4 MG/2 ML VIAL IVP PRN (18:01)
[2017-04-28] MEDS ORDERED: HYDROmorphone 4 MG/ML 1 ML SYRINGE IVP PRN (18:01)
--- NOTE | 2017-04-28 18:01 | P.OP ---
Date of Procedure: 04/28/17 Preoperative Diagnosis: Right knee osteoarthritis Postoperative Diagnosis: Right knee osteoarthritis Procedure(s) Performed: Right total knee arthroplasty Implants: 1. Marilee persona size 7 standard right cruciate retaining cemented femur 2. Marilee persona size E cemented tibia 3. Marilee persona 12 mm medial congruent polyethylene tibial insert 4. Marilee persona 32 mm all polyethylene cemented patella Anesthesia: regional (Adductor canal catheter), local, spinal Surgeon: Jens Urena Furniture Mover Helper #1: Gm Huffman Estimated Blood Loss (ml): 50 Pathology: other (Bone) Condition: stable Disposition: PACU Indications for Procedure: 67-year-old patient seen with symptomatic right knee osteoarthritis. After treatment options were discussed, she elected to proceed with total knee arthroplasty. Operative Findings: see description of procedure Description of Procedure: Patient was taken to the operative suite after having and adductor canal catheter placed by the department of anesthesia. Patient underwent a spinal anesthetic by the department of anesthesia. Patient was given preoperative IV intake antibiotics and TXA. A well-padded tourniquet was placed about the [] lower extremity. The lower extremity was then prepped and draped in the normal sterile orthopedic fashion. The extremity was elevated, a tourniquet was insufflated to 350. A standard anterior incision was made sharply through skin. Dissection was taken down through the subcutaneous soft tissues down to the extensor mechanism. A medial arthrotomy was performed, patella was everted and knee was flexed. There was advanced osteoarthritis noted. A proximal tibial cutting guide was positioned. Proximal tibial cut was made. A distal intramedullary femoral cutting guide was positioned, distal femoral cut made. We placed the appropriate sizing guide and selected the appropriate size. A distal 4-in-1 femoral cutting block was positioned, distal femoral cuts were made. We now placed a trial femoral component into position, along with an appropriate size tibial tray and insert. We now took the knee through range of motion and had full extension good flexion and good overall soft tissue balance noted. The patella was everted and a flush cut made with patellar quad tendon. We templated the patella, appropriate drill holes were made. An appropriate trial patella was positioned, knee was taken through full range of motion with the patella tracking very nicely. The trial patella was removed. Drill holes were made through the femoral component. All trial components were removed after marking off the appropriate rotation of the tibia. Retractors were now positioned along the proximal tibia. An appropriate keel punch was made with the appropriate size tibial guide. At this point appropriate size implants were chosen and opened. The joint was irrigated copiously with pulse lavage mechanical irrigation. The posterior capsule was infiltrated with local analgesic. We mixed antibiotic methylmethacrylate. Once the methyl methacrylate was ready, the tibial component was cemented into place removing any excess methylmethacrylate. The femoral component was cemented into place removing the removing any excess methylmethacrylate. We then inserted the appropriate size polyethylene tibial insert. We made sure that it was locked into position. We took the knee into full extension, and then back in a flexion making sure we had removed any excess methylmethacrylate. The patellar component was then cemented down and secured with clamp. Excess methylmethacrylate removed. We kept the knee in full extension, patellar clamp in position until methylmethacrylate had hardened. Once it had hardened the patellar clamp was removed. The knee was taken through full range of motion. The patella tracked nicely. There was good soft tissue balancing. The tourniquet was now released. Additional hemostasis was achieved via electrocautery. Second gram of TXA was given. The wound was irrigated with pulse lavage mechanical irrigation. The extensor mechanism was repaired with Vicryl. We checked the repair with range of motion and it was stable. The subcutaneous soft tissues were repaired with Vicryl in layers. The skin was approximated with pernio/Dermabond. Sterile dressings were applied followed by loose web roll and Stephen bandage. The patient was transferred to a bed, and taken to recovery in stable and satisfactory condition. Augustin MARCANO assisted with the procedure.
[2017-04-28] MEDS ORDERED: ROPIVACAINE 1,100 MG, SODIUM CHLORIDE 0.9% 330 ML MISCELLANE PRN ×2 (18:33)
--- NOTE | 2017-04-28 18:46 | XR ---
EXAMINATION TYPE: XR knee limited RT DATE OF EXAM: 04/28/2017 COMPARISON: 11/08/2016 HISTORY: Postop TECHNIQUE: 2 views. FINDINGS: There is a new right knee prosthesis. Components appear in anatomic position. IMPRESSION: No complicating process seen.
[2017-04-28] MEDS ORDERED: ONDANSETRON 4 MG/2 ML VIAL IVP ONE (19:31)
--- NOTE | 2017-04-28 21:02 | P.ONQ ---
Anesthesiology Proc Note - PNB - Peripheral Nerve Block Performed Right Adductor Canal Infusion Time Out Performed: Yes Procedure Start Time: 15:01 Procedure Stop Time: 15:11 Indication: Acute Post-Operative Pain, Requested by physician Sedation Type: Sedate with meaningful contact maintained Preparation: Sterile Dressing Position: Supine Catheter: Indwelling Needle Types: On-Q Needle Size: 100mm (4") Needle Gauge: 21 Technique: Ultrasound Injectate: 0.5% Ropivacaine (see comment for volume) (ropi .5% 20cc) Blood Aspirated: No Pain Paresthesia on Injection Noted: No Resistance on Injection: Normal Events: Uneventful and Well Tolerated
[2017-04-28] MEDS: ENOXAPARIN 30 MG/0.3 ML SYRINGE SQ SCH (21:26)
[2017-04-28] MEDS: ATORVASTATIN 20 MG TAB PO SCH (21:51)
[2017-04-28] MEDS: metFORMIN 500 MG TAB PO SCH (21:51)
[2017-04-28] MEDS: GABAPENTIN 400 MG CAP PO SCH (21:51)
[2017-04-28] MEDS: SENNOSIDES-DOCUSATE SODIUM 1 EACH TAB PO SCH (21:51)
[2017-04-28] MEDS: traMADol 50 MG TAB PO SCH (21:52)
[2017-04-28] MEDS: MAG HYDROX/AL HYDROX/SIMETH 30 ML CUP PO PRN (21:52)
[2017-04-28] MEDS: INSULIN ASPART 100 UNIT/ML 1 ML 10 ML VIAL SQ SCH (21:52)
[2017-04-28 21:53] LABS: Glucose,Whole Blood 111 mg/dL (75-99)
[2017-04-29] MEDS: LACTATED RINGERS 1,000 ML IV SCH ×4 (01:26→08:28)
[2017-04-29 07:27] LABS: Glucose,Whole Blood 96 mg/dL (75-99)
[2017-04-29] MEDS ORDERED: PANTOPRAZOLE 40 MG TABLET PO SCH (07:30)
--- NOTE | 2017-04-29 07:51 | P.PN ---
Progress Note - Text 04/29 736 67-year-old female status post total knee replacement by Dr. Urena. Patient has a On-Q pump for postop pain control with a VAS of 3 and the solution running at 8 mL an hour. Continue On-Q pump infusion
[2017-04-29 07:54] LABS: Basophils % (A) 1 %; Eosinophils # (A) 0.2 k/uL (0-0.7); Eosinophils % (A) 2 %; HCT 37.3 % (34.0-46.0); HGB 12.2 gm/dL (11.4-16.0); Lymphocytes # (A) 1.8 k/uL (1.0-4.8); Lymphocytes % (A) 22 %; MCH 31.3 pg (25.0-35.0); MCHC 32.7 g/dL (31.0-37.0); MCV 95.7 fL (80.0-100.0); Mean Platelet Volume 7.7; Monocytes # (A) 0.4 k/uL (0-1.0); Monocytes % (A) 5 %; Neutrophils # (A) 5.5 k/uL (1.3-7.7); Neutrophils % (A) 69 %; Platelet Count 249 k/uL (150-450); RBC 3.89 m/uL (3.80-5.40); RDW 12.2 % (11.5-15.5)
[2017-04-29] MEDS: HYDROcodone/APAP 7.5-325MG 1 EACH TAB PO PRN ×3 (08:24→20:54)
[2017-04-29] MEDS: INSULIN ASPART 100 UNIT/ML 1 ML 10 ML VIAL SQ SCH ×4 (08:25→20:54)
[2017-04-29] MEDS: ENOXAPARIN 30 MG/0.3 ML SYRINGE SQ SCH ×2 (08:26→20:54)
[2017-04-29] MEDS: GABAPENTIN 400 MG CAP PO SCH ×2 (08:26→20:54)
[2017-04-29] MEDS: MELOXICAM 7.5 MG TAB PO SCH ×2 (08:27→08:29)
[2017-04-29] MEDS: FAMOTIDINE 20 MG TAB PO SCH (08:27)
[2017-04-29] MEDS: metFORMIN 500 MG TAB PO SCH ×2 (08:27→18:12)
[2017-04-29] MEDS: traMADol 50 MG TAB PO SCH ×4 (10:04→23:04)
[2017-04-29 11:56] LABS: Glucose,Whole Blood 115 mg/dL (75-99)
[2017-04-29] MEDS ORDERED: MULTIVITAMINS, THERA 1 EACH TAB PO SCH (12:00)
--- NOTE | 2017-04-29 12:46 | P.PN ---
Subjective Progress Note Date: 04/29/17 Principal diagnosis: Status post right total knee arthroplasty Patient is seen today resting in her hospital bed, she is utilizing the CPM. She is ambulating minimally with physical therapy at this time. She denies any headaches, lightheadedness, chest pain or shortness of breath. Objective - Vital Signs Vital signs: Vital Signs Temp 98.2 F 04/29/17 08:23 Pulse 58 L 04/29/17 08:23 Resp 16 04/29/17 08:23 BP 117/67 04/29/17 08:23 Pulse Ox 94 L 04/29/17 08:23 Intake & Output 04/28/17 04/29/17 04/29/17 18:59 06:59 18:59 Intake Total 950 0 Output Total 50 Balance 900 2049 Intake: IV 950 150 Intake, IV Titration 1000 Amount Lactated Ringers 1,000 ml 1000 @ 100 mls/hr IV .Q10H REEMA Rx#:[id number] Oral 900 Output: Estimated Blood Loss 50 Other: # Voids 1 - Exam Right lower extremity: Incision is clean, dry, and intact. The prineo tape is in good condition. There is minimal soft tissue swelling and ecchymosis surrounding the medial and lateral aspects of the incision. Calf is soft, no tenderness with palpation. Plantar flexion, dorsiflexion, EHL, FHL are intact. Sensory exam to light touch throughout the extremity is intact, dorsal pedis pulses 2+. - Labs CBC & Chem 7: 04/29/17 07:16 Labs: Abnormal Lab Results - Last 24 Hours (Table) 04/28/17 04/28/17 04/29/17 Range/Units 13:13 21:48 11:53 POC Glucose (mg/dL) 104 H 111 H 115 H (75-99) mg/dL Assessment and Plan Plan: Assessment: 1. Postop day 1 status post right total knee arthroplasty Plan: 1. Pain control, continue supportive oral medication 2. Continue her physical therapy and use the CPM 3. Daily dressing changes/ice and elevate 4. GI and DVT prophylaxis, continue subcu medication 5. Medical recommendations 6. Discharge planning: Patient likely be discharged home tomorrow Time with Patient: Less than 30
--- NOTE | 2017-04-29 12:47 | P.DS ---
Providers Date of admission: 04/28/17 11:53 Expected date of discharge: 04/30/17 Attending physician: Jens Urena Consults: 04/28/17 18:01 Consult Physician Routine Consulting Provider: Maciel Mancuso Consult Reason/Comments: Medical management Do you want consulting provider notified?: Yes Primary care physician: Course: Date of admission: 04/28/2017 Date of discharge: 04/30/2017 Admission diagnosis: Status post right total knee arthroplasty Discharge diagnosis: Same Attending physician: Dr. Urena Surgical procedures: Right total knee arthroplasty Brief history: Patient is a 67-year-old female with a history of progressive primary right knee osteoarthritis. At this point patient has failed conservative treatment measures and has opted to proceed with a elective right total knee arthroplasty. Hospital course: Details of patient's surgery can be found in operative report. Patient tolerated the procedure well and was subsequently transported to orthopedic floor. Patient's orthopeidc and medical care was provided daily. Patient had daily laboratory tests performed for evaluation of overall blood counts. Patient had daily physical therapy to include strengthening range of motion as well as education with walker ambulation. Patient had daily CPM usage as part of their physical therapy program. Patient was treated with Lovenox for their postoperative DVT prophylaxis during their inpatient stay. Patient was noted to have a relatively uneventful postoperative course. Patient reported satisfactory pain control with oral pain medications by postoperative day 0. Patient showed satisfactory progress with physical therapy. Patient moved steadily through the program and had no difficulty meeting the goals by postoperative day 2. Given patient's otherwise satisfactory course and having met physical therapy goals, plan is to discharge patient home on postoperative day 2. Discharge condition/disposition: Patient will be discharged home in stable condition. Discharge medications: Instructions are given on resumption of patient's normal daily medications per primary care recommendation, in addition patient will be prescribed [place] 7.5 mg/325 mg, tramadol 50 mg, Colace 100 mg, Lovenox 30 mg. Discharge instructions: 1. Wound care and infection precautions, keep incision dry and covered while showering, no lotions, creams, moisturizers. No soaking, tubs, pools, hottubs. Do not scrub over the incision. 2. Weight-bear as tolerated with walker / cane until follow-up. 3. Ice and elevate when necessary. Do not exceed 20 minutes per hour with ice pack. 4. Utilize compression sleeve until seen at first follow up appointment. 5. Visiting nursing care. 6. Home physical therapy including home CPM. 7. Pain meds and anticoagulants per prescription. 8. Pain medication has potential to cause constipation. Increase oral fluid and fiber intake. Contact primary care provider if you have not had a bowel movement within 48 hours after discharge 9. No anti-inflammatory medication until discussed at first post operative visit, this including Motrin, Aleve, Mobic, Diclofenac. 10. Follow up in office at 2 weeks postop with Augustin Huffman PA-C 11. Follow up with your primary care doctor 7-10 days after discharge. 12. Contact [facility] with any questions, . Procedures: Right total knee arthroplasty Patient Condition at Discharge: Good Plan - Discharge Summary Discharge Rx Participant: Yes New Discharge Prescriptions: New Docusate [Colace] 100 mg PO DAILY #30 capsule Enoxaparin Sodium [Lovenox] 30 mg SQ Q12HR #30 syringe HYDROcodone/APAP 7.5-325MG [[place]pel[place] 7.5] 1 - 2 each PO Q6HR PRN #60 tab PRN Reason: Pain traMADol HCl [Ultram] 50 mg PO Q6H PRN #40 tab PRN Reason: Pain No Action Multivitamins, Thera [Multivitamin (formulary)] 1 tab PO DAILY Gabapentin [Neurontin] 800 mg PO BID Atorvastatin Calcium [Lipitor] 20 mg PO HS Esomeprazole Magnesium [NexIUM] 40 mg PO DAILY EPINEPHrine [Epipen 2-Khurram] 0.3 mg PO ONCE PRN PRN Reason: Anaphylaxis metFORMIN HCL [Glucophage] 500 mg PO BID Celecoxib [CeleBREX] 200 mg PO DAILY Discharge Medication List Atorvastatin Calcium [Lipitor] 20 mg PO HS 10/29/16 [History] Esomeprazole Magnesium [NexIUM] 40 mg PO DAILY 10/29/16 [History] Gabapentin [Neurontin] 800 mg PO BID 10/29/16 [History] Multivitamins, Thera [Multivitamin (formulary)] 1 tab PO DAILY 10/29/16 [History ] EPINEPHrine [Epipen 2-Khurram] 0.3 mg PO ONCE PRN 11/08/16 [History] metFORMIN HCL [Glucophage] 500 mg PO BID 04/22/17 [History] Docusate [Colace] 100 mg PO DAILY #30 capsule 04/30/17 [Rx] Enoxaparin Sodium [Lovenox] 30 mg SQ Q12HR #30 syringe 04/30/17 [Rx] HYDROcodone/APAP 7.5-325MG [[place] 7.5] 1 - 2 each PO Q6HR PRN #60 tab 04/30/17 [ Rx] traMADol HCl [Ultram] 50 mg PO Q6H PRN #40 tab 04/30/17 [Rx] Follow up Appointment(s)/Referral(s): [facility], [NON-STAFF] - Jameson Diaz MD [Primary Care Provider] - 1 Week Gm Huffman PAC [PHYSICIAN [employer] INSTRUCTOR] - 2 Weeks Activity/Diet/Wound Care/Special Instructions: Hold Celebrex while on Lovenox. Orthopedic Discharge Instructions: 1. Wound care and infection precautions, keep incision dry and covered while showering, no lotions, creams, moisturizers. No soaking, pools, hot tubs. Do not scrub over incision. 2. Weight-bear as tolerated with walker / cane until follow-up. 3. Ice and elevate when necessary. Do not exceed 20 minutes per hour with ice pack. 4. Utilize compression sleeve until seen at first follow up appointment. 5. Visiting nursing care. 6. Home physical therapy including home CPM. 7. Pain meds and anticoagulants per prescription. 8. Pain medication has potential to cause constipation. Increase oral fluid and fiber intake. Contact primary care provider if you have not had a bowel movement within 48 hours after discharge. 9. No anti-inflammatory medication until discussed at first post operative visit, this including Motrin, Aleve, Mobic, Diclofenac. 10. Follow up in office at 2 weeks postop with Augustin Huffman PA-C 11. Follow up with your primary care doctor 7-10 days after discharge. 12. Contact [facility] with any questions, . Discharge Disposition: HOME WITH HOME HEALTH SERVICES
--- NOTE | 2017-04-29 13:49 | P.CONS ---
History of Present Illness - Reason for Consult Consult date: 04/29/17 Medical management - Chief Complaint Right knee pain - History of Present Illness This is a 67-year-old female patient of Dr. Diaz, Dr. Ramirez with a past medical history of diabetes mellitus type 2 with hemoglobin A1c of 6.2, hyperlipidemia, gastroesophageal reflux disease, diabetic neuropathy, obstructive sleep apnea on CPAP, osteoarthritis, morbid obesity with a BMI of 43 status post gastric sleeve with loss of 110 pounds. Patient states her pain is well controlled at this time after taking 2 Timblin's. She states she was able to get up after her surgery yesterday and ambulate and has been up several times since. Patient has been admitted to the hospital on the care of Dr. Urena status post right total knee arthroplasty. Patient is on a Q-pump for pain control. Vitals have been stable, she has been afebrile and pulse ox is 94% on room air. Patient is using CPAP at nighttime. Hemoglobin is stable at 12.2. Her blood glucose running between 96 and 111. Review of Systems All systems: negative Constitutional: Denies chills, Denies fatigue, Denies fever, Denies lethargy, Denies malaise, Denies poor appetite, Denies weakness Eyes: denies blurred vision, denies pain Ears, nose, mouth and throat: Denies dental pain, Denies headache, Denies hoarseness, Denies mouth pain, Denies sore throat Cardiovascular: Denies chest pain, Denies decreased exercise tolerance, Denies dyspnea on exertion, Denies edema, Denies leg edema, Denies lightheadedness, Denies shortness of breath, Denies syncope Respiratory: Denies cough, Denies cough with sputum, Denies dyspnea, Denies excessive sputum, Denies hemoptysis, Denies home oxygen, Denies wheezing Gastrointestinal: Denies abdominal pain, Denies diarrhea, Denies nausea, Denies vomiting Genitourinary: Denies dysuria, Denies hematuria Musculoskeletal: Denies frequent falls, Denies muscle cramps, Denies muscle weakness, Denies myalgias Integumentary: Denies pruritus, Denies rash Neurological: Denies numbness, Denies weakness Psychiatric: Denies anxiety, Denies depression Endocrine: Denies fatigue, Denies weight change Past Medical History Past Medical History: Diabetes Mellitus, GERD/Reflux, Hyperlipidemia, Osteoarthritis (OA), Sleep Apnea/CPAP/BIPAP Additional Past Medical History / Comment(s): uses CPAP, history of acute blood loss anemia secondary to bleeding ulcer, diabetic neuropathy, morbid obesity History of Any Multi-Drug Resistant Organisms: None Reported Past Surgical History: Adenoidectomy, Appendectomy, Bariatric Surgery, Cholecystectomy, Joint Replacement, Orthopedic Surgery, Tonsillectomy Additional Past Surgical History / Comment(s): arthroscopy knee x2, gastric sleeve, right hip replaced, bilateral trigger finger release, EGD for bleeding gastric polyp Past Anesthesia/Blood Transfusion Reactions: Motion Sickness, Postoperative Nausea & Vomiting (PONV) Past Psychological History: No Psychological Hx Reported Additional Psychological History / Comment(s): Single. no children. lives with her adult sister. Smoked for a bit when she was in the . History of internationally most recently was to [facility] a year ago. No illnesses during that trip. When she was in she was in [facility]. She was not ill and took the myriad of injections and medications. No animal exposures did not relate to being sexually active. 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 Past Drug Use History: None Reported - Past Family History Brother(s) Family Medical History: Cancer Additional Family Medical History / Comment(s): Patient had one brother at age 37 from esophageal cancer. Father Family Medical History: Cancer Additional Family Medical History / Comment(s): Father at age 47 from pancreatic cancer. Mother Family Medical History: Myocardial Infarction (DE) Additional Family Medical History / Comment(s): Mother at age 76 status post several myocardial infarctions. Sister(s) Family Medical History: CVA/TIA Additional Family Medical History / Comment(s): Patient had 1 sister that at age 52 that had complications from diabetes uncontrolled and from a CVA. Patient has a second sister that is alive at age 68 with history of PE, overweight and smoker Medications and Allergies Home Medications Medication Instructions Recorded Confirmed Type Atorvastatin Calcium [Lipitor] 20 mg PO HS 10/29/16 04/28/17 History Esomeprazole Magnesium [NexIUM] 40 mg PO DAILY 10/29/16 04/28/17 History Gabapentin [Neurontin] 800 mg PO BID 10/29/16 04/28/17 History Multivitamins, Thera [Multivitamin 1 tab PO DAILY 10/29/16 04/28/17 History (formulary)] EPINEPHrine [Epipen 2-Khurram] 0.3 mg PO ONCE PRN 11/08/16 04/28/17 History Celecoxib [CeleBREX] 200 mg PO DAILY 04/22/17 04/28/17 History metFORMIN HCL [Glucophage] 500 mg PO BID 04/22/17 04/28/17 History Allergies Allergy/AdvReac Type Severity Reaction Status Date / Time amoxicillin [From Augmentin] Allergy Nausea & Verified 04/28/17 20:51 Vomiting & Diarrhea bee pollen Allergy Dyspnea,WHE Verified 04/28/17 20:51 EZING cat dander Allergy Dyspnea Verified 04/28/17 20:51 clavulanic acid Allergy Nausea & Verified 04/28/17 20:51 [From Augmentin] Vomiting & Diarrhea Iodinated Contrast- Oral and Allergy Anaphylaxis Verified 04/28/17 20:51 IV Dye iodine Allergy Anaphylaxis Verified 04/28/17 20:51 latex Allergy Rash/Hives, Verified 04/28/17 20:51 ITCHING venom-honey bee Allergy Anaphylaxis Verified 04/28/17 20:51 surgical stitch AdvReac redness & Uncoded 04/28/17 20:51 pus Physical Exam Vitals: Vital Signs Temp Pulse Pulse Pulse Resp BP Pulse Ox 04/29/17 08:24 16 04/29/17 08:23 98.2 F 58 L 16 117/67 94 L 04/29/17 02:41 97.6 F 58 L 17 100/54 96 04/28/17 22:00 61 124/77 04/28/17 21:45 60 125/63 04/28/17 21:30 59 L 120/66 04/28/17 21:15 57 L 106/60 04/28/17 21:00 57 L 106/67 04/28/17 20:45 57 L 102/48 04/28/17 20:30 61 104/61 04/28/17 20:15 60 114/67 04/28/17 20:00 96.8 F L 58 L 16 129/72 99 04/28/17 19:05 58 L 16 112/78 98 04/28/17 18:50 56 L 16 110/78 99 04/28/17 18:35 54 L 16 106/80 98 04/28/17 18:24 58 L 16 110/50 98 04/28/17 18:09 985 F H 69 16 98/55 97 04/28/17 15:15 58 L 18 103/58 100 Intake and Output 04/28/17 04/29/17 04/29/17 22:59 06:59 14:59 Intake Total 1400 1500 Output Total 50 Balance 1350 1500 Intake: IV 1000 Intake, IV Titration 1000 Amount Lactated Ringers 1,000 ml 1000 @ 100 mls/hr IV .Q10H REEMA Rx#:[id number] Oral 400 500 Output: Estimated Blood Loss 50 Other: Voiding Method Toilet # Voids 1 1 Gen: This is a morbidly obese 67-year-old female. She is sitting up in bed and appears to be comfortable and in no acute distress. HEENT: Head is atraumatic, normocephalic. Pupils equal, round. Sclerae is anicteric. NECK: Supple. No JVD. No lymphadenopathy. No thyromegaly. LUNGS: Clear to auscultation. No wheezes or rhonchi. No intercostal retractions. HEART: Regular rate and rhythm. No murmur. ABDOMEN: Soft. Bowel sounds are present. No masses. No tenderness. EXTREMITIES: No pedal edema. No calf tenderness. Dressing placed to the right knee. Dorsalis pedis palpable bilaterally. NEUROLOGICAL: Patient is awake, alert and oriented x3. Cranial nerves 2 through 12 are grossly intact. Results CBC & Chem 7: 04/29/17 07:16 Labs: Abnormal Lab Results - Last 24 Hours (Table) 04/28/17 04/29/17 Range/Units 21:48 11:53 POC Glucose (mg/dL) 111 H 115 H (75-99) mg/dL Assessment and Plan Plan: 1. Osteoarthritis status post right total knee arthroplasty. Continue current pain management per orthopedics. Continue PT and OT. Continue incentive spirometry to reduce incidence of atelectasis and hospital-acquired pneumonia. Continue Lovenox for DVT prophylaxis. 2. Diabetes mellitus type 2. Continue metformin 500 mg twice daily and NovoLog scale before meals and at bedtime. 3. Gastroesophageal reflux disease. Continue Pepcid 20 mg daily. 4. Diabetic neuropathy. Continue gabapentin 800 mg twice daily. 5. Hyperlipidemia. Continue Lipitor 20 mg at bedtime. 6. Obstructive sleep apnea. Patient using her old CPAP at night. Discharge plan: Return home Impression and plan of care have been directed as dictated by the signing physician. Katarina Paige nurse practitioner acting as scribe for signing physician.
[2017-04-29] MEDS: MAG HYDROX/AL HYDROX/SIMETH 30 ML CUP PO PRN (15:57)
[2017-04-29 17:12] LABS: Glucose,Whole Blood 154 mg/dL (75-99)
[2017-04-29 20:34] LABS: Hemoglobin A1C 7.1 % (4.0-6.0)
[2017-04-29 20:40] LABS: Glucose,Whole Blood 180 mg/dL (75-99)
[2017-04-29] MEDS: ATORVASTATIN 20 MG TAB PO SCH (20:54)
[2017-04-29] MEDS: SENNOSIDES-DOCUSATE SODIUM 1 EACH TAB PO SCH (20:54)
[2017-04-30] MEDS: HYDROcodone/APAP 7.5-325MG 1 EACH TAB PO PRN ×3 (01:58→12:30)
[2017-04-30] MEDS: LACTATED RINGERS 1,000 ML IV SCH ×3 (03:02→13:18)
[2017-04-30 07:34] LABS: Glucose,Whole Blood 110 mg/dL (75-99)
[2017-04-30 07:58] VITALS: BP 131/65; PULSE 60; RESP 16; TEMP 98.5
[2017-04-30] MEDS: GABAPENTIN 400 MG CAP PO SCH (07:58)
[2017-04-30] MEDS: ENOXAPARIN 30 MG/0.3 ML SYRINGE SQ SCH (07:58)
[2017-04-30] MEDS: FAMOTIDINE 20 MG TAB PO SCH ×2 (07:59→08:50)
[2017-04-30] MEDS: MELOXICAM 7.5 MG TAB PO SCH ×2 (07:59→08:02)
[2017-04-30] MEDS: metFORMIN 500 MG TAB PO SCH (07:59)
[2017-04-30] MEDS: INSULIN ASPART 100 UNIT/ML 1 ML 10 ML VIAL SQ SCH ×2 (08:51→12:53)
[2017-04-30] MEDS: traMADol 50 MG TAB PO SCH ×2 (09:27→13:25)
--- NOTE | 2017-04-30 10:10 | P.PN ---
Subjective Progress Note Date: 04/30/17 Principal diagnosis: Status post right total knee arthroplasty Patient is seen today resting in her hospital bed, she denies any acute pain. She denies any headaches, lightheadedness, chest pain or shortness of breath. Objective - Vital Signs Vital signs: Vital Signs Temp 98.5 F 04/30/17 07:57 Pulse 60 04/30/17 07:57 Resp 16 04/30/17 07:57 BP 131/65 04/30/17 07:57 Pulse Ox 95 04/30/17 07:57 Intake & Output 04/29/17 04/30/17 04/30/17 18:59 06:59 18:59 Intake Total 500 Balance 500 Intake: Oral 500 Other: Voiding Method Toilet # Voids 1 1 - Exam Right lower extremity: Incision is clean, dry, and intact. The prineo tape is in good condition. There is minimal soft tissue swelling and ecchymosis surrounding the medial and lateral aspects of the incision. Calf is soft, no tenderness with palpation. Plantar flexion, dorsiflexion, EHL, FHL are intact. Sensory exam to light touch throughout the extremity is intact, dorsal pedis pulses 2+. - Labs CBC & Chem 7: 04/29/17 07:16 Labs: Abnormal Lab Results - Last 24 Hours (Table) 04/29/17 04/29/17 04/29/17 Range/Units 07:16 11:53 17:08 POC Glucose (mg/dL) 115 H 154 H (75-99) mg/dL Hemoglobin A1c 7.1 H (4.0-6.0) % 04/29/17 04/30/17 Range/Units 20:30 07:20 POC Glucose (mg/dL) 180 H 110 H (75-99) mg/dL Hemoglobin A1c (4.0-6.0) % Assessment and Plan Plan: Assessment: 1. Postop day #2 status post right total knee arthroplasty Plan: 1. Pain control, continue supportive oral medication 2. Continue her physical therapy and use the CPM 3. Daily dressing changes/ice and elevate 4. GI and DVT prophylaxis, continue subcu medication 5. Medical recommendations 6. Discharge planning: Plan for discharge today Time with Patient: Less than 30
--- NOTE | 2017-04-30 10:41 | P.PN ---
Progress Note - Text The patient is status post right adductor canal catheter placement. The catheter was placed for postoperative pain control, status post total right arthroplasty. Ropivacaine 0.2% is infusing at 8 mLs per hour. The patient has no complaints of right lower extremity numbness or weakness. Patient's VAS score is 1-2-10. Assessment: Patient's adductor canal catheter is in place and working appropriately. Plan: continue infusion and adjust it as needed.
[2017-04-30 11:45] LABS: Glucose,Whole Blood 140 mg/dL (75-99)
--- NOTE | 2017-04-30 15:10 | P.PN ---
Subjective Progress Note Date: 04/30/17 This is a 67-year-old female patient of Dr. Diaz, Dr. Ramirez with a past medical history of diabetes mellitus type 2 with hemoglobin A1c of 6.2, hyperlipidemia, gastroesophageal reflux disease, diabetic neuropathy, obstructive sleep apnea on CPAP, osteoarthritis, morbid obesity with a BMI of 43 status post gastric sleeve with loss of 110 pounds. Patient states her pain is well controlled at this time after taking 2 Clayton's. She states she was able to get up after her surgery yesterday and ambulate and has been up several times since. Patient has been admitted to the hospital on the care of Dr. Urena status post right total knee arthroplasty. Patient is on a Q-pump for pain control. Vitals have been stable, she has been afebrile and pulse ox is 94% on room air. Patient is using CPAP at nighttime. Hemoglobin is stable at 12.2. Her blood glucose running between 96 and 111. 2: Patient is scheduled for discharge home today. She has been afebrile with pulse ox of 95% on room air. Blood blood glucose running 110-180. Patient was surprised by the 180 but she will be continued on her current medications and check her blood sugars at home twice daily. Pain in her left knee has decreased. Objective - Vital Signs Vital signs: Vital Signs Temp 98.5 F 04/30/17 07:57 Pulse 60 04/30/17 07:57 Resp 16 04/30/17 07:57 BP 131/65 04/30/17 07:57 Pulse Ox 95 04/30/17 07:57 Intake & Output 04/29/17 04/30/17 04/30/17 18:59 06:59 18:59 Intake Total 500 Balance 500 Intake: Oral 500 Other: Voiding Method Toilet # Voids 1 1 - Exam Gen: This is a morbidly obese 67-year-old female. She is sitting up in bed and appears to be comfortable and in no acute distress. HEENT: Head is atraumatic, normocephalic. Pupils equal, round. Sclerae is anicteric. NECK: Supple. No JVD. No lymphadenopathy. No thyromegaly. LUNGS: Clear to auscultation. No wheezes or rhonchi. No intercostal retractions. HEART: Regular rate and rhythm. No murmur. ABDOMEN: Soft. Bowel sounds are present. No masses. No tenderness. EXTREMITIES: No pedal edema. No calf tenderness. Dressing placed to the right knee. Dorsalis pedis palpable bilaterally. NEUROLOGICAL: Patient is awake, alert and oriented x3. Cranial nerves 2 through 12 are grossly intact. - Labs CBC & Chem 7: 04/29/17 07:16 Labs: Abnormal Lab Results - Last 24 Hours (Table) 04/29/17 04/29/17 04/29/17 Range/Units 07:16 11:53 17:08 POC Glucose (mg/dL) 115 H 154 H (75-99) mg/dL Hemoglobin A1c 7.1 H (4.0-6.0) % 04/29/17 04/30/17 Range/Units 20:30 07:20 POC Glucose (mg/dL) 180 H 110 H (75-99) mg/dL Hemoglobin A1c (4.0-6.0) % Assessment and Plan Plan: 1. Osteoarthritis status post right total knee arthroplasty. Continue current pain management per orthopedics. Continue PT and OT. Continue incentive spirometry to reduce incidence of atelectasis and hospital-acquired pneumonia. Continue Lovenox for DVT prophylaxis. 2. Diabetes mellitus type 2. Continue metformin 500 mg twice daily and NovoLog scale before meals and at bedtime. 3. Gastroesophageal reflux disease. Continue Pepcid 20 mg daily. 4. Diabetic neuropathy. Continue gabapentin 800 mg twice daily. 5. Hyperlipidemia. Continue Lipitor 20 mg at bedtime. 6. Obstructive sleep apnea. Patient using her old CPAP at night. Discharge plan: Return home Impression and plan of care have been directed as dictated by the signing physician. Katarina Paige nurse practitioner acting as scribe for signing physician.
== END 2017-04-30 13:43 | disposition home health service (06) | DRG 470 ==
LOC: 2ORMAIN 11:53 → 3SUR 17:59
PROVIDERS: ADMIT Orthopaedic Surgery; ATTEND Orthopaedic Surgery
PROC: 0SRC0J9 Replacement of Right Knee Joint with Synthetic Substitute, Cemented, Open Approach (ICD-10-PCS; principal; 2017-04-28 16:40)
DX: M17.11 Unilateral primary osteoarthritis, right knee (principal); E11.40 Type 2 diabetes mellitus with diabetic neuropathy, unspecified; E78.5 Hyperlipidemia, unspecified; G47.33 Obstructive sleep apnea (adult) (pediatric); I10 Essential (primary) hypertension; K21.9 Gastro-esophageal reflux disease without esophagitis; Z96.641 Presence of right artificial hip joint; Z79.84 Long term (current) use of oral hypoglycemic drugs; Z79.899 Other long term (current) drug therapy; Z80.0 Family history of malignant neoplasm of digestive organs; Z82.3 Family history of stroke; Z82.49 Family history of ischemic heart disease and other diseases of the circulatory system; Z83.3 Family history of diabetes mellitus; Z98.84 Bariatric surgery status; Z88.1 Allergy status to other antibiotic agents; Z91.041 Radiographic dye allergy status; Z91.040 Latex allergy status; Z91.030 Bee allergy status
CPT/HCPCS: 83036; 85025; 88300

== ENCOUNTER → 2018-01-06 | Outpatient (CLI) | payer MEDICARE ==
--- NOTE | 2018-01-06 17:10 | PN ---
PROGRESS NOTE Jo is 67, and she is coming in for a compliancy check. This annual check for her. The patient was diagnosed having obstructive sleep apnea. She has been on CPAP therapy since. Her AHI 15, CPAP pressure of 10. She is not doing a lot of traveling. She was in [facility] and then she was in [facility] and currently she is planning a trip to [place]. She carries a CPAP unit with her. She tried to purchase a portable unit which turned out to be very nosy and ineffective and she ultimately returned the machine. She is currently using ResMed unit which is set at a pressure of 10 cm of water. She is also using a small size Eson nose mask. Weight is down by around 6 pounds since her last evaluation and based on the compliance data, the patient is utilizing her CPAP every night. Her CPAP use for more than 4 hours is more than 75%. Average CPAP use around 5.1 hours per night. Leak factor 25 L and AHI is down to 1. No other complaints. She continues to benefit from the treatment. REVIEW OF SYSTEMS: 12-point review of system was done. Positive findings are mentioned above in history of present illness. PHYSICAL EXAMINATION: BP is 150/79, pulse 60 respirations 16, temp 97.6 and saturation 98% on room air. Weight is 236. Height is 5' 0", BMI 45.3. General appearance: Calm, comfortable. HEENT: Head atraumatic, normocephalic. NECK: Supple. No JVD. No goiter or neck masses. Mallampati class IV. LUNGS: Clear to auscultation. HEART: Sounds regular rate and rhythm. Normal S1, S2. No S3, S4. No murmurs. ABDOMEN: Soft, nontender. No organomegaly. EXTREMITIES: No edema. No cyanosis or clubbing. IMPRESSION: 1. Symptomatic obstructive sleep apnea, AHI of 15. The patient continues to receive successful CPAP therapy at the same level of pressure of 11 cm of water. Baseline AHI of 15. 2. Obesity with interval weight loss. BMI is down to 45. 3. Hypersomnia, improved. PLAN: 1. Continue CPAP therapy at the same level of pressure. 2. Keep the Eson nose mask. 3. Encourage further weight loss. 4. See me back in followup in a year's time, earlier if needed. MMODL / IJN: [id number] /
== END | disposition home or self-care (01) ==
LOC: SLEEP 15:12
PROVIDERS: ATTEND Internal Medicine Critical Care Medicine
DX: G47.33 Obstructive sleep apnea (adult) (pediatric) (principal); E66.9 Obesity, unspecified; Z68.42 Body mass index [BMI] 45.0-49.9, adult; Z99.89 Dependence on other enabling machines and devices

== ENCOUNTER → 2018-04-17 | Outpatient (CLI) | payer MEDICARE ==
--- NOTE | 2018-04-17 11:48 | NM ---
EXAMINATION TYPE: NM bone 3 phase DATE OF EXAM: 04/17/2018 COMPARISON: Outside right hip x-ray April 14, 2018 HISTORY: Right hip pain since February 2018 after fall injury, history of right hip replacement surge ry 13 years ago. Triple phase bone scintigraphy was performed following the injection of 24.2 mCi Tc 99m MDP. Immedia te images and 3.5 hours post injection images acquired. Images are obtained of the pelvis including p roximal bilateral lower extremities. FINDINGS: Dynamic arterial and soft tissue phase images show no suspicious increased radiotracer uptake at area of clinical concern right hip. Delayed images show nonspecific mild increase uptake surrounding femo ral component of prosthesis particularly over anterior and medial surfaces, no corresponding lucency on radiographs is noted. IMPRESSION: No three-phase scintigraphic increase uptake to suggest periprosthetic infection in the r ight hip.
== END | disposition home or self-care (01) ==
LOC: RADNMMAIN 07:09
PROVIDERS: ATTEND Orthopaedic Surgery
DX: T84.84XD Pain due to internal orthopedic prosthetic devices, implants and grafts, subsequent encounter (principal); Z96.641 Presence of right artificial hip joint
CPT/HCPCS: 78315; A9503

== ENCOUNTER → 2018-06-25 | Outpatient (CLI) | payer MEDICARE ==
--- NOTE | 2018-06-26 10:50 | MM ---
Reason for exam: screening (asymptomatic). Last mammogram was performed 1 year and 2 months ago. History: Patient is postmenopausal and is nulliparous. Family history of breast cancer in maternal cousin. Physical Findings: A clinical breast exam by your physician is recommended on an annual basis and results should be correlated with mammographic findings. MG Screening Mammo w CAD Bilateral CC, MLO, and XCCL view(s) were taken. Prior study comparison: April 16, 2017, bilateral MG screening mammo w CAD. March 12, 2016, mammogram, performed at [facility]. The breast tissue is almost entirely fat. Stable benign calcifications. No significant changes when compared with prior studies. ASSESSMENT: Benign, BI-RAD 2 RECOMMENDATION: Routine screening mammogram of both breasts in 1 year.
== END | disposition home or self-care (01) ==
LOC: RADMAMWWP 12:43
PROVIDERS: ATTEND Internal Medicine
DX: Z12.31 Encounter for screening mammogram for malignant neoplasm of breast (principal)
CPT/HCPCS: 77067

== ENCOUNTER 2020-01-23 15:46 | Inpatient (IN) | payer MEDICARE ==
[2020-01-23] MEDS ORDERED: IPRATROPIUM-ALBUTEROL 3 ML NEB INHALATION STA (16:12)
[2020-01-23] MEDS ORDERED: SODIUM CHLORIDE 0.9% 1,000 ML IV STA (16:12)
--- NOTE | 2020-01-23 16:41 | XR ---
EXAMINATION TYPE: XR chest 1V portable DATE OF EXAM: 01/23/2020 COMPARISON: 11/08/2016 HISTORY: Covid pneumonia TECHNIQUE: Single view FINDINGS: Heart and mediastinum are normal. Lungs are clear. Diaphragm is normal. Bony thorax appears normal. IMPRESSION: Normal chest. No change.
--- NOTE | 2020-01-23 17:09 | ED ---
SOB HPI - General Chief Complaint: Shortness of Breath Stated Complaint: SOB Time Seen by Provider: 01/23/20 16:04 Source: patient, RN notes reviewed, old records reviewed Mode of arrival: wheelchair Limitations: no limitations - History of Present Illness Initial Comments: This is a 61-year-old female she presents today for evaluation regards to chest pain shortness of breath mainly shortness of breath and no current chest pain. No fevers. She does have increased cough and phlegm production. Patient denies travel history or sick contacts. No fevers here in the ER MD Complaint: shortness of breath, cough -: days(s) Severity: moderate Severity scale (1-10): 4 Consistency: constant Improves With: nothing Worsens With: exertion Context: recent URI, anxiety Associated Symptoms: denies other symptoms Treatments Prior to Arrival: none - Related Data Home Medications Medication Instructions Recorded Confirmed Atorvastatin Calcium [Lipitor] 20 mg PO HS 10/29/16 04/28/17 Esomeprazole Magnesium [NexIUM] 40 mg PO DAILY 10/29/16 04/28/17 Gabapentin [Neurontin] 800 mg PO BID 10/29/16 04/28/17 Multivitamins, Thera [Multivitamin 1 tab PO DAILY 10/29/16 04/28/17 (formulary)] EPINEPHrine [Epipen 2-Khurram] 0.3 mg PO ONCE PRN 11/08/16 04/28/17 metFORMIN HCL [Glucophage] 500 mg PO BID 04/22/17 04/28/17 Previous Rx's Medication Instructions Recorded Docusate [Colace] 100 mg PO DAILY #30 capsule 04/30/17 Enoxaparin Sodium [Lovenox] 30 mg SQ Q12HR #30 syringe 04/30/17 HYDROcodone/APAP 7.5-325MG [[place] 1 - 2 each PO Q6HR PRN #60 tab 04/30/17 7.5] traMADol HCl [Ultram] 50 mg PO Q6H PRN #40 tab 04/30/17 Allergies Allergy/AdvReac Type Severity Reaction Status Date / Time amoxicillin [From Augmentin] Allergy Nausea & Verified 01/23/20 15:52 Vomiting & Diarrhea bee pollen Allergy Dyspnea,WHE Verified 01/23/20 15:52 EZING cat dander Allergy Dyspnea Verified 01/23/20 15:52 clavulanic acid Allergy Nausea & Verified 01/23/20 15:52 [From Augmentin] Vomiting & Diarrhea Iodinated Contrast Media Allergy Anaphylaxis Verified 01/23/20 15:52 [Iodinated Contrast- Oral and IV Dye] iodine Allergy Anaphylaxis Verified 01/23/20 15:52 latex Allergy Rash/Hives, Verified 01/23/20 15:52 ITCHING venom-honey bee Allergy Anaphylaxis Verified 01/23/20 15:52 surgical stitch AdvReac redness & Uncoded 01/23/20 15:52 pus Review of Systems ROS Statement: Those systems with pertinent positive or pertinent negative responses have been documented in the HPI. ROS Other: All systems not noted in ROS Statement are negative. Past Medical History Past Medical History: GERD/Reflux, Hyperlipidemia, Osteoarthritis (OA) Additional Past Medical History / Comment(s): uses CPAP, history of acute blood loss anemia secondary to bleeding ulcer, diabetic neuropathy, morbid obesity History of Any Multi-Drug Resistant Organisms: None Reported Past Surgical History: Adenoidectomy, Appendectomy, Cholecystectomy, Joint Replacement, Orthopedic Surgery, Tonsillectomy Additional Past Surgical History / Comment(s): arthroscopy knee x2, gastric sleeve, right hip replaced, bilateral trigger finger release, EGD for bleeding gastric polyp Past Anesthesia/Blood Transfusion Reactions: Postoperative Nausea & Vomiting (PONV) Past Psychological History: No Psychological Hx Reported Smoking Status: Never smoker Past Alcohol Use History: Occasional Past Drug Use History: None Reported - Past Family History Brother(s) Family Medical History: Cancer Additional Family Medical History / Comment(s): Patient had one brother at age 37 from esophageal cancer. Father Family Medical History: Cancer Additional Family Medical History / Comment(s): Father at age 47 from pancreatic cancer. Mother Family Medical History: Myocardial Infarction ([place]) Additional Family Medical History / Comment(s): Mother at age 76 status post several myocardial infarctions. Sister(s) Family Medical History: CVA/TIA Additional Family Medical History / Comment(s): Patient had 1 sister that at age 52 that had complications from diabetes uncontrolled and from a CVA. Patient has a second sister that is alive at age 68 with history of PE, overwei ght and smoker General Exam Limitations: no limitations General appearance: alert, in no apparent distress Head exam: Present: atraumatic, normocephalic, normal inspection Eye exam: Present: normal appearance, PERRL, EOMI. Absent: scleral icterus, conjunctival injection, periorbital swelling ENT exam: Present: normal exam, mucous membranes moist Neck exam: Present: normal inspection. Absent: tenderness, meningismus, lymphadenopathy Respiratory exam: Present: normal lung sounds bilaterally. Absent: respiratory distress, wheezes, rales, rhonchi, stridor Cardiovascular Exam: Present: regular rate, normal rhythm, normal heart sounds. Absent: systolic murmur, diastolic murmur, rubs, gallop, clicks GI/Abdominal exam: Present: soft, normal bowel sounds. Absent: distended, tenderness, guarding, rebound, rigid Extremities exam: Present: normal inspection, full ROM, normal capillary refill. Absent: tenderness, pedal edema, joint swelling, calf tenderness Back exam: Present: normal inspection Neurological exam: Present: alert, oriented X3, CN II-XII intact Psychiatric exam: Present: normal affect, normal mood Skin exam: Present: warm, dry, intact, normal color. Absent: rash Course Vital Signs 01/23/20 01/23/20 01/23/20 15:50 16:57 17:06 Temperature 97 F L Pulse Rate 81 84 88 Respiratory 18 Rate Blood Pressure 172/84 O2 Sat by Pulse 93 L Oximetry 01/23/20 18:35 Temperature 97.8 F Pulse Rate 80 Respiratory 16 Rate Blood Pressure 166/84 O2 Sat by Pulse 94 L Oximetry - Reevaluation(s) Reevaluation #1: 01/23/20 20:52 Medical record is reviewed Reevaluation #2: 01/23/20 20:52 Currently still with some weakness Patient has no chest pain Reevaluation #3: 01/23/20 20:52 A she also complains of shortness of breath Reevaluation #4: 01/23/20 20:53 Spoke with patient regarding findings and results, questions are answered - Consultations Consultation #1: Spoke with PMH we'll admit this patient Medical Decision Making - Medical Decision Making 61 female DF for evaluation patient is found to have multiple PEs here in the ER. We will admit patient for anticoagulation and proper consultation with lmonology and vascular surgery - Lab Data Result diagrams: 01/23/20 17:10 01/23/20 17:10 Lab Results 01/23/20 01/23/20 01/23/20 Range/Units 17:10 17:10 17:10 WBC 8.3 (3.8-10.6) k/uL RBC 4.98 (3.80-5.40) m/uL Hgb 15.4 (11.4-16.0) gm/dL Hct 46.0 (34.0-46.0) % MCV 92.4 (80.0-100.0) fL MCH 31.0 (25.0-35.0) pg MCHC 33.6 (31.0-37.0) g/dL RDW 12.3 (11.5-15.5) % Plt Count 239 (150-450) k/uL Neutrophils % 60 % Lymphocytes % 29 % Monocytes % 5 % Eosinophils % 4 % Basophils % 1 % Neutrophils # 4.9 (1.3-7.7) k/uL Lymphocytes # 2.4 (1.0-4.8) k/uL Monocytes # 0.4 (0-1.0) k/uL Eosinophils # 0.3 (0-0.7) k/uL Basophils # 0.1 (0-0.2) k/uL PT 9.8 (9.0-12.0) sec INR 0.9 (<1.2) APTT 22.5 (22.0-30.0) sec D-Dimer 8.25 H (<0.60) mg/L FEU Sodium 139 (137-145) mmol/L Potassium 4.0 (3.5-5.1) mmol/L Chloride 111 H (98-107) mmol/L Carbon Dioxide 22 (22-30) mmol/L Anion Gap 6 mmol/L BUN 23 H (7-17) mg/dL Creatinine 1.02 (0.52-1.04) mg/dL Est GFR (CKD-EPI)AfAm 66 (>60 ml/min/1.73 sqM) Est GFR (CKD-EPI)NonAf 57 (>60 ml/min/1.73 sqM) Glucose 143 H (74-99) mg/dL Plasma Lactic Acid Levon (0.7-2.0) mmol/L Calcium 9.7 (8.4-10.2) mg/dL Magnesium 1.9 (1.6-2.3) mg/dL Total Bilirubin 0.6 (0.2-1.3) mg/dL AST 26 (14-36) U/L ALT 24 (4-34) U/L Alkaline Phosphatase 78 (38-126) U/L Lactate Dehydrogenase 717 H (313-618) U/L C-Reactive Protein <5.0 (<10.0) mg/L Total Protein 6.7 (6.3-8.2) g/dL Albumin 3.7 (3.5-5.0) g/dL Coronavirus (PCR) (Not Detectd) 01/23/20 01/23/20 Range/Units 17:10 18:30 WBC (3.8-10.6) k/uL RBC (3.80-5.40) m/uL Hgb (11.4-16.0) gm/dL Hct (34.0-46.0) % MCV (80.0-100.0) fL MCH (25.0-35.0) pg MCHC (31.0-37.0) g/dL RDW (11.5-15.5) % Plt Count (150-450) k/uL Neutrophils % % Lymphocytes % % Monocytes % % Eosinophils % % Basophils % % Neutrophils # (1.3-7.7) k/uL Lymphocytes # (1.0-4.8) k/uL Monocytes # (0-1.0) k/uL Eosinophils # (0-0.7) k/uL Basophils # (0-0.2) k/uL PT (9.0-12.0) sec INR (<1.2) APTT (22.0-30.0) sec D-Dimer (<0.60) mg/L FEU Sodium (137-145) mmol/L Potassium (3.5-5.1) mmol/L Chloride (98-107) mmol/L Carbon Dioxide (22-30) mmol/L Anion Gap mmol/L BUN (7-17) mg/dL Creatinine (0.52-1.04) mg/dL Est GFR (CKD-EPI)AfAm (>60 ml/min/1.73 sqM) Est GFR (CKD-EPI)NonAf (>60 ml/min/1.73 sqM) Glucose (74-99) mg/dL Plasma Lactic Acid Levon 1.1 (0.7-2.0) mmol/L Calcium (8.4-10.2) mg/dL Magnesium (1.6-2.3) mg/dL Total Bilirubin (0.2-1.3) mg/dL AST (14-36) U/L ALT (4-34) U/L Alkaline Phosphatase (38-126) U/L Lactate Dehydrogenase (313-618) U/L C-Reactive Protein (<10.0) mg/L Total Protein (6.3-8.2) g/dL Albumin (3.5-5.0) g/dL Coronavirus (PCR) Not Detected (Not Detectd) - EKG Data -: EKG Interpreted by Me (EKG shows sinus rhythm 74 CO 194 QRS 88 QTc or 75) - Radiology Data Radiology results: report reviewed (Chest x-rays negative for acute disease CT positive for PE), image reviewed Disposition Clinical Impression: Acute pulmonary embolism Disposition: ADMITTED IP TO THIS [facility] Condition: Serious Referrals: Jameson Diaz MD [Primary Care Provider] - 1-2 days
[2020-01-23 17:39] LABS: Basophils # (A) 0.1 k/uL (0-0.2); Basophils % (A) 1 %; Eosinophils # (A) 0.3 k/uL (0-0.7); Eosinophils % (A) 4 %; HGB 15.4 gm/dL (11.4-16.0); Lymphocytes # (A) 2.4 k/uL (1.0-4.8); Lymphocytes % (A) 29 %; MCHC 33.6 g/dL (31.0-37.0); MCV 92.4 fL (80.0-100.0); Mean Platelet Volume 7.5; Monocytes # (A) 0.4 k/uL (0-1.0); Monocytes % (A) 5 %; Neutrophils # (A) 4.9 k/uL (1.3-7.7); Neutrophils % (A) 60 %; Platelet Count 239 k/uL (150-450); RBC 4.98 m/uL (3.80-5.40); RDW 12.3 % (11.5-15.5); WBC 8.3 k/uL (3.8-10.6)
[2020-01-23 17:52] LABS: ALT 24 U/L (4-34); AST 26 U/L (14-36); African American GFR (CKD) 66 (>60 ml/min/1.73 sqM); Albumin 3.7 g/dL (3.5-5.0); Alkaline Phosphatase 78 U/L (38-126); Anion Gap 6 mmol/L; Blood Urea Nitrogen 23 mg/dL (7-17); Calcium 9.7 mg/dL (8.4-10.2); Carbon Dioxide 22 mmol/L (22-30); Chloride 111 mmol/L (98-107); Glucose 143 mg/dL (74-99); LDH 717 U/L (313-618); Magnesium 1.9 mg/dL (1.6-2.3); Non-African American GFR(CKD) 57 (>60 ml/min/1.73 sqM); Sodium 139 mmol/L (137-145); Total Bilirubin 0.6 mg/dL (0.2-1.3); Total Protein 6.7 g/dL (6.3-8.2)
[2020-01-23 18:08] LABS: C Reactive Protein <5.0 mg/L (<10.0); INR 0.9 (<1.2); Partial Thromboplastin Time 22.5 sec (22.0-30.0); Prothrombin Time 9.8 sec (9.0-12.0)
[2020-01-23 18:23] LABS: D-Dimer 8.25 mg/L FEU (<0.60)
[2020-01-23] MEDS ORDERED: methylPREDNISolone SOD SUCCI 125 MG/2 ML VIAL IV STA (18:36)
[2020-01-23] MEDS ORDERED: diphenhydrAMINE 50 MG/ML 1 ML VIAL IVP STA (18:36)
[2020-01-23] MEDS ORDERED: FAMOTIDINE 20 MG/2 ML VIAL IV STA (18:36)
--- NOTE | 2020-01-23 20:10 | CT ---
EXAMINATION TYPE: CT angio chest DATE OF EXAM: 01/23/2020 COMPARISON: None HISTORY: shortness of breath CT DLP: 771.5 mGycm Automated exposure control for dose reduction was used. CONTRAST: Performed with IV Contrast, patient injected with 100 mL of Isovue 370. There are 3-D post processed images. There is no mediastinal adenopathy. Thoracic aorta is intact. There is no aneurysm or dissection. Asc ending aorta measures 3.3 cm. There are no hilar masses. Heart size is normal. There is no pericardia l effusion. There is hiatal hernia. There is previous gastric surgery. There are multiple filling defects in the right and left lower lobe pulmonary arteries. The bony thor ax is intact. The lungs are clear of consolidation. There is minimal subsegmental atelectasis left lung base. There is no pleural effusion. IMPRESSION: Multiple bilateral lower lobe pulmonary emboli. Multiple attempts were made by telephone to notify attending staff in the emergency room. This was unsuccessful.
[2020-01-23] MEDS ORDERED: NITROGLYCERIN SL TABS 0.4 MG TAB SUBLINGUAL PRN (20:48)
[2020-01-23] MEDS ORDERED: MORPHINE SULFATE 4 MG/ML SYRINGE IV PRN (20:48)
[2020-01-23] MEDS ORDERED: HEPARIN SODIUM,PORCINE 5,000 UNIT/ML 1 ML VIAL IV PRN (20:48)
[2020-01-23] MEDS ORDERED: HEPARIN SODIUM,PORCINE 10,000 UNIT/ML 1 ML VIAL IV ONE (20:48)
[2020-01-23] MEDS: SODIUM CHLORIDE 0.9% 1,000 ML IV SCH (21:17)
[2020-01-23] MEDS: HEPARIN SOD,PORK IN 0.45% NACL 25,000 UNIT in 0.45% NACL 1 250ML.BAG IV SCH (21:17)
[2020-01-23] MEDS: GABAPENTIN 300 MG CAP PO SCH (23:47)
[2020-01-24 03:18] LABS: Basophils % (A) 0 %; Eosinophils % (A) 0 %; HCT 44.4 % (34.0-46.0); HGB 14.3 gm/dL (11.4-16.0); Lymphocytes # (A) 0.7 k/uL (1.0-4.8); Lymphocytes % (A) 13 %; MCH 30.7 pg (25.0-35.0); MCHC 32.3 g/dL (31.0-37.0); MCV 95.1 fL (80.0-100.0); Monocytes # (A) 0.1 k/uL (0-1.0); Monocytes % (A) 1 %; Neutrophils # (A) 4.7 k/uL (1.3-7.7); Neutrophils % (A) 85 %; Platelet Count 215 k/uL (150-450); RBC 4.66 m/uL (3.80-5.40); RDW 12.8 % (11.5-15.5); WBC 5.5 k/uL (3.8-10.6)
[2020-01-24 03:29] LABS: Cholesterol 170 mg/dL (<200); HDL Cholesterol 63 mg/dL (40-60); LDL Cholesterol,Calculated 100 mg/dL (0-99); Triglycerides 37 mg/dL (<150)
[2020-01-24 03:50] LABS: INR 1.1 (<1.2); Prothrombin Time 11.2 sec (9.0-12.0)
[2020-01-24 04:02] LABS: Partial Thromboplastin Time >200.0 sec (22.0-30.0)
[2020-01-24] MEDS: PANTOPRAZOLE 40 MG TABLET PO SCH (06:20)
[2020-01-24 06:37] LABS: Glucose,Whole Blood 183 mg/dL (75-99)
--- NOTE | 2020-01-24 08:17 | US ---
EXAMINATION TYPE: US venous doppler duplex LE DATE OF EXAM: 01/24/2020 7:46 AM COMPARISON: Prior right lower extremity ultrasound August 30, 2016 CLINICAL HISTORY: DVT. new PE SIDE PERFORMED: Bilateral TECHNIQUE: The lower extremity deep venous system is examined utilizing real time linear array sonog flor with graded compression, doppler sonography and color-flow sonography. VESSELS IMAGED: External Iliac Vein (EIV) Common Femoral Vein Deep Femoral Vein Greater Saphenous Vein * Femoral Vein Popliteal Vein Small Saphenous Vein * Proximal Calf Veins (* superficial vessels) Right Leg: Negative for DVT Left Leg: Negative for DVT, 3.5cm popiteal cyst seen Grayscale, color doppler, spectral doppler imaging performed of the deep veins of the bilateral lower extremities. There is normal flow, compressibility, vascular waveforms. Small to borderline modera te size popliteal cyst incidentally noted towards the end of study IMPRESSION: No ultrasound evidence for acute DVT in either lower extremity.
[2020-01-24] MEDS ORDERED: GABAPENTIN 300 MG CAP PO SCH (09:00)
[2020-01-24 10:15] LABS: Ferritin 89.3 ng/mL (10.0-291.0)
[2020-01-24] MEDS: SODIUM CHLORIDE 0.9% 1,000 ML IV SCH (10:37)
[2020-01-24] MEDS: GABAPENTIN 300 MG CAP PO SCH ×3 (10:42→23:12)
[2020-01-24] MEDS: ASPIRIN 325 MG TAB PO SCH (10:42)
[2020-01-24] MEDS: CHOLECALCIFEROL 1,000 UNIT TAB PO SCH (10:42)
--- NOTE | 2020-01-24 11:28 | P.CRDCN ---
History of Present Illness Consult date: 01/24/20 Reason for Consult (text): Pulmonary embolism Chief complaint: Shortness of breath History of present illness: This is a pleasant 69-year-old female who follows regularly with Dr. Christie in the office. Past medical history significant for hyperlipidemia, diabetes, obstructive sleep apnea for which she uses a CPAP machine at home, family history of premature coronary artery disease, who [facility] with symptoms of fairly sudden onset of shortness of breath. According to the patient, she had been outside working on her lawn all day Friday and felt quite well, at the end of that however she states that she was extremely tired, more than her usual. She also noticed himself to be short of breath with minimal exertion, she checked an oxygen saturation at home which came back in the 80s and for this reason came to the hospital for further evaluation and treatment. Her EKG on presentation here showed normal sinus rhythm with no acute changes. Chest x-ray did not reveal any acute changes. Blood pressure 102/50 with a heart rate in the 70s, respirations 18, 94% on 3 L. CTA of the chest was performed which revealed multiple bilateral low pulmonary embolism. Venous duplex study negative for DVT. White blood cell count 5.5, hemoglobin 14.3, platelet count 2:15. D-dimer 8.25. Sodium 139, potassium 4.0, BUN 23, creatinine 1.0, magnesium 1.9, troponin 0.012 times to Cunningham virus testing was negative. Patient is currently on IV heparin. Of note, patient did have an echo performed in the office in July 2018 which revealed a normal ejection fraction, Mine scan was also performed at that time which revealed mild reversible defect which is similar to prior stress testing. Patient did state also that her sister who is 2 years older than her also has a history of a pulmonary embolism in the past. Past Medical History Past Medical History: GERD/Reflux, Hyperlipidemia, Osteoarthritis (OA) Additional Past Medical History / Comment(s): uses CPAP, history of acute blood loss anemia secondary to bleeding ulcer, diabetic neuropathy, morbid obesity, went to [facility] in november History of Any Multi-Drug Resistant Organisms: None Reported Past Surgical History: Adenoidectomy, Appendectomy, Cholecystectomy, Joint Replacement, Orthopedic Surgery, Tonsillectomy Additional Past Surgical History / Comment(s): arthroscopy knee x2, gastric sleeve, right hip replaced, bilateral trigger finger release, EGD for bleeding gastric polyp Past Anesthesia/Blood Transfusion Reactions: Postoperative Nausea & Vomiting (PONV) Past Psychological History: No Psychological Hx Reported Additional Psychological History / Comment(s): Single. no children. lives with her adult sister. Smoked for a bit when she was in the . History of internationally most recently was to [facility] a year ago. No illnesses during that trip. When she was in she was in [facility]. She was not ill and took the myriad of injections and medications. No animal exposures did not relate to being sexually active. Smoking Status: Never smoker Past Alcohol Use History: Occasional Past Drug Use History: None Reported - Past Family History Brother(s) Family Medical History: Cancer Additional Family Medical History / Comment(s): Patient had one brother at age 37 from esophageal cancer. Father Family Medical History: Cancer Additional Family Medical History / Comment(s): Father at age 47 from pancreatic cancer. Mother Family Medical History: Myocardial Infarction ([place]) Additional Family Medical History / Comment(s): Mother at age 76 status post several myocardial infarctions. Sister(s) Family Medical History: CVA/TIA Additional Family Medical History / Comment(s): Patient had 1 sister that at age 52 that had complications from diabetes uncontrolled and from a CVA. Patient has a second sister that is alive at age 68 with history of PE, overweight and smoker Medications and Allergies Home Medications Medication Instructions Recorded Confirmed Type Atorvastatin Calcium [Lipitor] 20 mg PO HS 10/29/16 01/23/20 History Esomeprazole Magnesium [NexIUM] 40 mg PO DAILY 10/29/16 01/23/20 History EPINEPHrine [Epipen 2-Khurram] 0.3 mg PO ONCE PRN 11/08/16 01/23/20 History metFORMIN HCL [Glucophage] 500 mg PO BID 04/22/17 01/23/20 History Calcium Carbonate [Calcium] 600 mg PO DAILY 01/23/20 01/23/20 History Celecoxib [CeleBREX] 200 mg PO DAILY 01/23/20 01/23/20 History Cholecalciferol [Vitamin D3 (25 1,000 unit PO DAILY 01/23/20 01/23/20 History Mcg = 1000 Iu)] Famotidine 20 mg PO DAILY 01/23/20 01/23/20 History Gabapentin 600 mg PO TID 01/23/20 01/23/20 History Allergies Allergy/AdvReac Type Severity Reaction Status Date / Time amoxicillin [From Augmentin] Allergy Nausea & Verified 01/23/20 21:09 Vomiting & Diarrhea bee pollen Allergy Dyspnea,WHE Verified 01/23/20 21:09 EZING cat dander Allergy Dyspnea Verified 01/23/20 21:09 clavulanic acid Allergy Nausea & Verified 01/23/20 21:09 [From Augmentin] Vomiting & Diarrhea Iodinated Contrast Media Allergy Anaphylaxis Verified 01/23/20 21:09 [Iodinated Contrast- Oral and IV Dye] iodine Allergy Anaphylaxis Verified 01/23/20 21:09 latex Allergy Rash/Hives, Verified 01/23/20 21:09 ITCHING venom-honey bee Allergy Anaphylaxis Verified 01/23/20 21:09 surgical stitch AdvReac redness & Uncoded 01/23/20 15:52 pus Physical Exam Vitals: Vital Signs Temp Pulse Pulse Resp BP BP Pulse Ox 01/24/20 08:00 98.1 F 72 18 128/68 95 01/24/20 04:00 98.1 F 72 19 102/54 94 L 01/24/20 00:00 98.5 F 79 20 133/63 94 L 01/23/20 22:13 98.9 F 74 19 164/98 94 L 01/23/20 21:00 75 18 155/80 94 L 01/23/20 18:35 97.8 F 80 16 166/84 94 L 01/23/20 17:06 88 01/23/20 16:57 84 01/23/20 15:50 97 F L 81 18 172/84 93 L Intake and Output 01/23/20 01/24/20 01/24/20 22:59 06:59 14:59 Intake Total 128.806 240 Balance 128.806 240 Intake: Intake, IV Titration 128.806 Amount Heparin Sod,Pork in 0.45% 128.806 NaCl 25,000 unit In 0.45 % NaCl 1 250ml.bag @ 18 UNITS/KG/HR 18.942 mls/hr IV .[id number] [facility] Rx#: [id number] Oral 240 Other: Voiding Method Bedside Commode # Voids 2 Weight 105.233 kg 110.5 kg PHYSICAL EXAMINATION: GENERAL: 69-year-old female in no acute distress at the time of my examination HEENT: Head is atraumatic, normocephalic. Pupils equal, round. Sclera anicteric. Conjunctiva are clear. Mucous membranes of the mouth are moist. Neck is supple. There is no elevated jugular venous pressure. No carotid bruit is heard. HEART EXAMINATION: Heart S1, S2 normal. No murmur or gallop heard. CHEST EXAMINATION: Lungs are clear to auscultation and precussion. No chest wall tenderness is noted on palpation or with deep breathing. ABDOMEN: Soft, nontender. Bowel sounds are heard. No organomegaly noted. EXTREMITIES: 2+ peripheral pulses with no evidence of peripheral edema and no calf tenderness noted. Homans negative NEUROLOGIC patient is awake, alert and oriented 3 . Results 01/24/20 02:35 01/23/20 17:10 Cardiac Enzymes 01/23/20 01/23/20 01/24/20 Range/Units 17:10 21:45 00:43 AST 26 (14-36) U/L Lactate Dehydrogenase 717 H (313-618) U/L Troponin I <0.012 <0.012 (0.000-0.034) ng/mL Coagulation 01/23/20 01/24/20 Range/Units 17:10 02:35 PT 9.8 11.2 (9.0-12.0) sec APTT 22.5 >200.0 H* (22.0-30.0) sec Lipids 01/24/20 Range/Units 02:35 Triglycerides 37 (<150) mg/dL Cholesterol 170 (<200) mg/dL HDL Cholesterol 63 H (40-60) mg/dL CBC 01/23/20 01/24/20 Range/Units 17:10 02:35 WBC 8.3 5.5 (3.8-10.6) k/uL RBC 4.98 4.66 (3.80-5.40) m/uL Hgb 15.4 14.3 (11.4-16.0) gm/dL Hct 46.0 44.4 (34.0-46.0) % Plt Count 239 215 (150-450) k/uL Comprehensive Metabolic Panel 01/23/20 Range/Units 17:10 Sodium 139 (137-145) mmol/L Potassium 4.0 (3.5-5.1) mmol/L Chloride 111 H (98-107) mmol/L Carbon Dioxide 22 (22-30) mmol/L BUN 23 H (7-17) mg/dL Creatinine 1.02 (0.52-1.04) mg/dL Glucose 143 H (74-99) mg/dL Calcium 9.7 (8.4-10.2) mg/dL AST 26 (14-36) U/L ALT 24 (4-34) U/L Alkaline Phosphatase 78 (38-126) U/L Total Protein 6.7 (6.3-8.2) g/dL Albumin 3.7 (3.5-5.0) g/dL Current Medications Generic Name Dose Route Start Last Admin Trade Name Freq PRN Reason Stop Dose Admin Aspirin 325 mg 01/24/20 09:00 01/24/20 10:42 Aspirin 325 Mg Tab PO 325 mg DAILY REEMA Administration Atorvastatin Calcium 20 mg 01/24/20 21:00 Atorvastatin 20 Mg Tab PO HS REEMA Cholecalciferol 1,000 unit 01/24/20 09:00 01/24/20 10:42 Cholecalciferol 1,000 Unit Tab PO 1,000 unit DAILY REEMA Administration Gabapentin 600 mg 01/23/20 23:41 01/24/20 10:42 Gabapentin 300 Mg Cap PO 600 mg TID REEMA Administration Heparin Sodium (Porcine) 0 unit 01/23/20 20:48 Heparin Sodium,Porcine 5,000 Unit/Ml 1 Ml Vial IV PER PROTOCOL PRN Low PTT Protocol Heparin Sodium/Sodium Chloride 250 mls @ 18.942 mls/hr 01/23/20 21:00 01/24/20 05:37 25,000 unit/ Sodium Chloride IV 15 units/kg/hr .[id number] REEMA 15.785 mls/hr Titration Protocol 18 UNITS/KG/HR Morphine Sulfate 4 mg 01/23/20 20:48 01/24/20 01:41 Morphine Sulfate 4 Mg/Ml Syringe IV 4 mg Q6HR PRN Administration Chest Pain Nitroglycerin 0.4 mg 01/23/20 20:48 Nitroglycerin Sl Tabs 0.4 Mg Tab SUBLINGUAL Q5M PRN Chest Pain Pantoprazole Sodium 40 mg 01/24/20 07:30 01/24/20 06:20 Pantoprazole 40 Mg Tablet PO 40 mg DAILY@0730 REEMA Administration Intake and Output 01/23/20 01/24/20 01/24/20 22:59 06:59 14:59 Intake Total 128.806 240 Balance 128.806 240 Intake: Intake, IV Titration 128.806 Amount Heparin Sod,Pork in 0.45% 128.806 NaCl 25,000 unit In 0.45 % NaCl 1 250ml.bag @ 18 UNITS/KG/HR 18.942 mls/hr IV .[id number] REEMA Rx#: [id number] Oral 240 Other: Voiding Method Bedside Commode # Voids 2 Weight 105.233 kg 110.5 kg 01/24/20 02:35 01/23/20 17:10 EKG Interpretations (text) EKG shows a normal sinus rhythm with no acute changes. Assessment and Plan Plan: Assessment and plan #1 acute bilateral pulmonary embolism, appears to be unprovoked. Patient has had no recent surgeries, no extended time being sedentary, no recent long travel #2 hyperlipidemia #3 diabetes #4 sleep apnea #5 GERD #6 family history of pulmonary embolism and her sister who is 2 years older. #7 history of premature coronary artery disease in her mom Plan We will continue the patient on IV heparin, from tomorrow we will recommend initiating the patient on xarelto per PE protocol, we will check today on coverage for this. We will also decrease her aspirin 81 mg daily. Obtain an echocardiogram with Doppler study. DNP note has been reviewed, I agree with a documented findings and plan of care. Patient was seen and examined.
--- NOTE | 2020-01-24 12:00 | ECHOF ---
Referral Reason:PE MEASUREMENTS -------- HEIGHT: 157.5 cm WEIGHT: 110.2 kg BP: 102/54 IVSd: 1.5 cm (0.6 - 1.1) LVIDd: 3.1 cm (3.9 - 5.3) LVPWd: 1.7 cm (0.6 - 1.1) IVSs: 1.8 cm LVIDs: 2.0 cm LVPWs: 1.9 cm RVIDd: 3.7 cm (< 3.3) Ao Diam: 2.5 cm (2.0 - 3.7) LA Diam: 3.5 cm (2.7 - 3.8) AV Cusp: 1.8 cm (1.5 - 2.6) EPSS: 0.3 cm MV E Papito: 0.60 m/s MV DecT: 190 ms MV A Papito: 1.06 m/s MV E/A Ratio: 0.57 RAP: 5.00 mmHg RVSP: 54.59 mmHg MV EF SLOPE: 42.82 mm/s (70 - 150) MV EXCURSION: 12.54 mm (> 18.000) FINDINGS -------- This was a technically difficult study with suboptimal views. The left ventricular size is normal. There is moderate concentric left ventricular hypertrophy. O verall left ventricular systolic function is normal with, an EF between 55 - 60 %. The right ventricle is mildly enlarged. The left atrial size is normal. The right atrial size is normal. Lumason used Unable to visualize the septum. The aortic valve is trileaflet and appears structurally normal. The mitral valve is normal. Mild mitral regurgitation is present. The tricuspid valve appears structurally normal. Mild tricuspid regurgitation present. There is m oderate pulmonary hypertension. The right ventricular systolic pressure, as measured by Doppler, is 54.59mmHg. There is no pulmonic regurgitation present. The aortic root size is normal. IVC Not well visulized. There is no pericardial effusion. CONCLUSIONS -------- 1. The left ventricular size is normal. 2. There is moderate concentric left ventricular hypertrophy. 3. Overall left ventricular systolic function is normal with, an EF between 55 - 60 %. 4. The right ventricle is mildly enlarged. 5. Mild mitral regurgitation is present. 6. Mild tricuspid regurgitation present. 7. There is moderate pulmonary hypertension. 8. The right ventricular systolic pressure, as measured by Doppler, is 54.59mmHg. 9. There is no pericardial effusion. [employer]ENCHING CAR OPERATOR: Malika Londono RDCS
--- NOTE | 2020-01-24 12:15 | P.GSCN ---
<Brenda Smith - Last Filed: 01/24/20 12:10> History of Present Illness Consult date: 01/24/20 Reason for Consult: pulmonary embolism History of present illness: The patient is a pleasant 69-year-old female who came into the emergency department with complaints of shortness of breath, especially dyspnea on exertion. She has a past medical history significant for hyperlipidemia, diabetes, obstructive sleep apnea for which he uses a CPAP machine at home, and a family history of premature coronary artery disease. Does state she was working outside all day on Friday but she was feeling quite well but by the end of the day she said she was feeling extremely tired. He then noticed that she was feeling extremely short of breath especially with exertion and checked her oxygen saturation at home which she states was in the 70s to 80s, though she came to the emergency department for further evaluation. The patient denies any recent surgeries, any history of pulmonary embolism or deep vein thrombosis, any recent travel other than she did fly to from [place] in November. She does state though her sister does have a history as well as a pulmonary embolism and is on several toe. She denies any family history that is known of clotting disorders, is unsure of her sister has upper and evaluated by hematology for any clotting disorders. Chest x-ray did not reveal any acute changes. Vital signs were stable. CTA of the chest was performed which revealed multiple bilateral low pulmonary embolism. Venous Doppler of bilateral lower extremities were negative for DVT. Review of Systems A 14 point review of systems was completed all pertinent positives and negatives as stated in the HPI Past Medical History Past Medical History: GERD/Reflux, Hyperlipidemia, Osteoarthritis (OA) Additional Past Medical History / Comment(s): uses CPAP, history of acute blood loss anemia secondary to bleeding ulcer, diabetic neuropathy, morbid obesity, went to [facility] in november History of Any Multi-Drug Resistant Organisms: None Reported Past Surgical History: Adenoidectomy, Appendectomy, Cholecystectomy, Joint Replacement, Orthopedic Surgery, Tonsillectomy Additional Past Surgical History / Comment(s): arthroscopy knee x2, gastric sleeve, right hip replaced, bilateral trigger finger release, EGD for bleeding gastric polyp Past Anesthesia/Blood Transfusion Reactions: Postoperative Nausea & Vomiting (PONV) Past Psychological History: No Psychological Hx Reported Additional Psychological History / Comment(s): Single. no children. lives with her adult sister. Smoked for a bit when she was in the . History of internationally most recently was to [facility] a year ago. No illnesses during that trip. When she was in she was in [facility]. She was not ill and took the myriad of injections and medications. No animal exposures did not relate to being sexually active. Smoking Status: Never smoker Past Alcohol Use History: Occasional Past Drug Use History: None Reported - Past Family History Brother(s) Family Medical History: Cancer Additional Family Medical History / Comment(s): Patient had one brother at age 37 from esophageal cancer. Father Family Medical History: Cancer Additional Family Medical History / Comment(s): Father at age 47 from p ancreatic cancer. Mother Family Medical History: Myocardial Infarction (ND) Additional Family Medical History / Comment(s): Mother at age 76 status post several myocardial infarctions. Sister(s) Family Medical History: CVA/TIA Additional Family Medical History / Comment(s): Patient had 1 sister that at age 52 that had complications from diabetes uncontrolled and from a CVA. Patient has a second sister that is alive at age 68 with history of PE, overweight and smoker Medications and Allergies Home Medications Medication Instructions Recorded Confirmed Type Atorvastatin Calcium [Lipitor] 20 mg PO HS 10/29/16 01/23/20 History Esomeprazole Magnesium [NexIUM] 40 mg PO DAILY 10/29/16 01/23/20 History EPINEPHrine [Epipen 2-Khurram] 0.3 mg PO ONCE PRN 11/08/16 01/23/20 History metFORMIN HCL [Glucophage] 500 mg PO BID 04/22/17 01/23/20 History Calcium Carbonate [Calcium] 600 mg PO DAILY 01/23/20 01/23/20 History Celecoxib [CeleBREX] 200 mg PO DAILY 01/23/20 01/23/20 History Cholecalciferol [Vitamin D3 (25 1,000 unit PO DAILY 01/23/20 01/23/20 History Mcg = 1000 Iu)] Famotidine 20 mg PO DAILY 01/23/20 01/23/20 History Gabapentin 600 mg PO TID 01/23/20 01/23/20 History Allergies Allergy/AdvReac Type Severity Reaction Status Date / Time amoxicillin [From Augmentin] Allergy Nausea & Verified 01/23/20 21:09 Vomiting & Diarrhea bee pollen Allergy Dyspnea,WHE Verified 01/23/20 21:09 EZING cat dander Allergy Dyspnea Verified 01/23/20 21:09 clavulanic acid Allergy Nausea & Verified 01/23/20 21:09 [From Augmentin] Vomiting & Diarrhea Iodinated Contrast Media Allergy Anaphylaxis Verified 01/23/20 21:09 [Iodinated Contrast- Oral and IV Dye] iodine Allergy Anaphylaxis Verified 01/23/20 21:09 latex Allergy Rash/Hives, Verified 01/23/20 21:09 ITCHING venom-honey bee Allergy Anaphylaxis Verified 01/23/20 21:09 surgical stitch AdvReac redness & Uncoded 01/23/20 15:52 pus Surgical - Exam Vital Signs Temp Pulse Resp BP Pulse Ox 97 F L 81 18 172/84 93 L 01/23/20 15:50 01/23/20 15:50 01/23/20 15:50 01/23/20 15:50 01/23/20 15:50 General appearance: The patient is alert, oriented, in no acute distress. HET: Head is normocephalic and atraumatic. Pupils are equal and reactive. Oropharynx is clear without lesions. Neck: Supple without lymphadenopathy. Trachea midline. Heart: S1 S2. Regular rate and rhythm. Lungs: Clear to auscultation bilaterally Abdomen: Soft, nontender, nondistended with bowel sounds. Extremities: Normal skin color and turgor. No cyanosis, rash, ulceration, clubbing, or edema. Radial and pedal pulses are 2/4 bilaterally. Neurological: No focal deficits. Strength and sensation are grossly intact. Results CTA chest: Reviewed by Dr. Rosenbaum Venous Doppler bilateral lower extremities: Reviewed by Dr. Rosenbaum - Labs 01/24/20 02:35 01/23/20 17:10 Abnormal Lab Results - Last 24 Hours (Table) 01/23/20 01/23/20 01/24/20 Range/Units 17:10 17:10 02:35 Lymphocytes # (1.0-4.8) k/uL APTT >200.0 H* (22.0-30.0) sec D-Dimer 8.25 H (<0.60) mg/L FEU Chloride 111 H (98-107) mmol/L BUN 23 H (7-17) mg/dL Glucose 143 H (74-99) mg/dL POC Glucose (mg/dL) (75-99) mg/dL Lactate Dehydrogenase 717 H (313-618) U/L LDL Cholesterol, Calc (0-99) mg/dL HDL Cholesterol (40-60) mg/dL 01/24/20 01/24/20 01/24/20 Range/Units 02:35 02:35 06:35 Lymphocytes # 0.7 L (1.0-4.8) k/uL APTT (22.0-30.0) sec D-Dimer (<0.60) mg/L FEU Chloride (98-107) mmol/L BUN (7-17) mg/dL Glucose (74-99) mg/dL POC Glucose (mg/dL) 183 H (75-99) mg/dL Lactate Dehydrogenase (313-618) U/L LDL Cholesterol, Calc 100 H (0-99) mg/dL HDL Cholesterol 63 H (40-60) mg/dL Diabetes panel 01/23/20 01/24/20 Range/Units 17:10 02:35 Sodium 139 (137-145) mmol/L Potassium 4.0 (3.5-5.1) mmol/L Chloride 111 H (98-107) mmol/L Carbon Dioxide 22 (22-30) mmol/L BUN 23 H (7-17) mg/dL Creatinine 1.02 (0.52-1.04) mg/dL Glucose 143 H (74-99) mg/dL Calcium 9.7 (8.4-10.2) mg/dL AST 26 (14-36) U/L ALT 24 (4-34) U/L Alkaline Phosphatase 78 (38-126) U/L Total Protein 6.7 (6.3-8.2) g/dL Albumin 3.7 (3.5-5.0) g/dL Triglycerides 37 (<150) mg/dL HDL Cholesterol 63 H (40-60) mg/dL Calcium panel 01/23/20 Range/Units 17:10 Calcium 9.7 (8.4-10.2) mg/dL Albumin 3.7 (3.5-5.0) g/dL Pituitary panel 01/23/20 Range/Units 17:10 Sodium 139 (137-145) mmol/L Potassium 4.0 (3.5-5.1) mmol/L Chloride 111 H (98-107) mmol/L Carbon Dioxide 22 (22-30) mmol/L BUN 23 H (7-17) mg/dL Creatinine 1.02 (0.52-1.04) mg/dL Glucose 143 H (74-99) mg/dL Calcium 9.7 (8.4-10.2) mg/dL Adrenal panel 01/23/20 Range/Units 17:10 Sodium 139 (137-145) mmol/L Potassium 4.0 (3.5-5.1) mmol/L Chloride 111 H (98-107) mmol/L Carbon Dioxide 22 (22-30) mmol/L BUN 23 H (7-17) mg/dL Creatinine 1.02 (0.52-1.04) mg/dL Glucose 143 H (74-99) mg/dL Calcium 9.7 (8.4-10.2) mg/dL Total Bilirubin 0.6 (0.2-1.3) mg/dL AST 26 (14-36) U/L ALT 24 (4-34) U/L Alkaline Phosphatase 78 (38-126) U/L Total Protein 6.7 (6.3-8.2) g/dL Albumin 3.7 (3.5-5.0) g/dL Assessment and Plan Assessment: 1. Pulmonary embolism 2. Diabetes 3. Hyperlipidemia 4. Obstructive apnea on CPAP Plan: Imaging reviewed by Dr. Rosenbaum. Echocardiogram ordered, results pending. At this time there is no evidence for vascular surgical thrombotic intervention. Continue with medical therapy with Heparin gtt and will need to transition to oral anticoagulation. Recommend hematology follow up as outpatient as patient's sister also has history of unprovoked pulmonary embolism. Thank you for this consultation and allowing us to Plan of Care Of Your Patient during Her Hospital Stay. The impression and plan of care has been dictated as directed. Dr. Rosenbaum I performed a history and examination of this patient, discussed the same with the dictator. I agree with the dictator's note ,documented as a scribe. Any additional findings or plans will be noted. <Mary Wilder - Last Filed: 01/24/20 17:20> Surgical - Exam Vital Signs Temp Pulse Resp BP Pulse Ox 97 F L 81 18 172/84 93 L 01/23/20 15:50 01/23/20 15:50 01/23/20 15:50 01/23/20 15:50 01/23/20 15:50 Results - Labs 01/24/20 02:35 01/23/20 17:10 Abnormal Lab Results - Last 24 Hours (Table) 01/23/20 01/23/20 01/24/20 Range/Units 17:10 17:10 02:35 Lymphocytes # (1.0-4.8) k/uL APTT >200.0 H* (22.0-30.0) sec D-Dimer 8.25 H (<0.60) mg/L FEU Chloride 111 H (98-107) mmol/L BUN 23 H (7-17) mg/dL Glucose 143 H (74-99) mg/dL POC Glucose (mg/dL) (75-99) mg/dL Hemoglobin A1c (4.0-6.0) % Lactate Dehydrogenase 717 H (313-618) U/L LDL Cholesterol, Calc (0-99) mg/dL HDL Cholesterol (40-60) mg/dL 01/24/20 01/24/20 01/24/20 Range/Units 02:35 02:35 02:35 Lymphocytes # 0.7 L (1.0-4.8) k/uL APTT (22.0-30.0) sec D-Dimer (<0.60) mg/L FEU Chloride (98-107) mmol/L BUN (7-17) mg/dL Glucose (74-99) mg/dL POC Glucose (mg/dL) (75-99) mg/dL Hemoglobin A1c 6.5 H (4.0-6.0) % Lactate Dehydrogenase (313-618) U/L LDL Cholesterol, Calc 100 H (0-99) mg/dL HDL Cholesterol 63 H (40-60) mg/dL 01/24/20 01/24/20 01/24/20 Range/Units 06:35 11:41 12:10 Lymphocytes # (1.0-4.8) k/uL APTT >200.0 H* (22.0-30.0) sec D-Dimer (<0.60) mg/L FEU Chloride (98-107) mmol/L BUN (7-17) mg/dL Glucose (74-99) mg/dL POC Glucose (mg/dL) 183 H 151 H (75-99) mg/dL Hemoglobin A1c (4.0-6.0) % Lactate Dehydrogenase (313-618) U/L LDL Cholesterol, Calc (0-99) mg/dL HDL Cholesterol (40-60) mg/dL 01/24/20 Range/Units 16:51 Lymphocytes # (1.0-4.8) k/uL APTT (22.0-30.0) sec D-Dimer (<0.60) mg/L FEU Chloride (98-107) mmol/L BUN (7-17) mg/dL Glucose (74-99) mg/dL POC Glucose (mg/dL) 142 H (75-99) mg/dL Hemoglobin A1c (4.0-6.0) % Lactate Dehydrogenase (313-618) U/L LDL Cholesterol, Calc (0-99) mg/dL HDL Cholesterol (40-60) mg/dL Diabetes panel 01/23/20 01/24/20 01/24/20 Range/Units 17:10 02:35 02:35 Sodium 139 (137-145) mmol/L Potassium 4.0 (3.5-5.1) mmol/L Chloride 111 H (98-107) mmol/L Carbon Dioxide 22 (22-30) mmol/L BUN 23 H (7-17) mg/dL Creatinine 1.02 (0.52-1.04) mg/dL Glucose 143 H (74-99) mg/dL Hemoglobin A1c 6.5 H (4.0-6.0) % Calcium 9.7 (8.4-10.2) mg/dL AST 26 (14-36) U/L ALT 24 (4-34) U/L Alkaline Phosphatase 78 (38-126) U/L Total Protein 6.7 (6.3-8.2) g/dL Albumin 3.7 (3.5-5.0) g/dL Triglycerides 37 (<150) mg/dL HDL Cholesterol 63 H (40-60) mg/dL Calcium panel 01/23/20 Range/Units 17:10 Calcium 9.7 (8.4-10.2) mg/dL Albumin 3.7 (3.5-5.0) g/dL Pituitary panel 01/23/20 Range/Units 17:10 Sodium 139 (137-145) mmol/L Potassium 4.0 (3.5-5.1) mmol/L Chloride 111 H (98-107) mmol/L Carbon Dioxide 22 (22-30) mmol/L BUN 23 H (7-17) mg/dL Creatinine 1.02 (0.52-1.04) mg/dL Glucose 143 H (74-99) mg/dL Calcium 9.7 (8.4-10.2) mg/dL Adrenal panel 01/23/20 Range/Units 17:10 Sodium 139 (137-145) mmol/L Potassium 4.0 (3.5-5.1) mmol/L Chloride 111 H (98-107) mmol/L Carbon Dioxide 22 (22-30) mmol/L BUN 23 H (7-17) mg/dL Creatinine 1.02 (0.52-1.04) mg/dL Glucose 143 H (74-99) mg/dL Calcium 9.7 (8.4-10.2) mg/dL Total Bilirubin 0.6 (0.2-1.3) mg/dL AST 26 (14-36) U/L ALT 24 (4-34) U/L Alkaline Phosphatase 78 (38-126) U/L Total Protein 6.7 (6.3-8.2) g/dL Albumin 3.7 (3.5-5.0) g/dL
[2020-01-24 12:17] LABS: Glucose,Whole Blood 151 mg/dL (75-99)
--- NOTE | 2020-01-24 12:38 | P.HPIM ---
History of Present Illness H&P Date: 01/24/20 HISTORY OF PRESENT ILLNESS This is a 67-year-old female patient of Dr. Ashley Padgett with a past medical history of diabetes mellitus type 2, hyperlipidemia, gastroesophageal reflux disease, diabetic neuropathy, obstructive sleep apnea on CPAP, osteoarthritis, morbid obesity with a BMI of 44 status post gastric sleeve with loss of 110 pounds. Patient presented to the hospital due to shortness of breath. She states it started on Friday when she was working in the yard and she was more tired than normal. She felt the same way on Friday. She denies any leg pain or leg swelling. She denies having any recent travel, no history of cancer, no history of lupus rheumatoid arthritis or other autoimmune disorders. Patient came into [facility] emergency center for evaluation. Chest x-ray did not reveal any acute changes. Initial blood pressure 102/50, heart rate 70s, pulse ox 94% on room air. CTA of the chest revealed multiple bilateral pulmonary embolism. Venous duplex of the lower extremities negative for DVT. Hemoglobin 14.3, WBC 5.5, platelet count 215. D-dimer 8.25. Sodium 139, potassium 4.0, creatinine 1. Magnesium 1.9. Troponin negative.COVID-19 negative. Patient was started on heparin drip and admitted to the cardiac stepdown unit. Consults requested with vascular surgeon and cardiology. REVIEW OF SYSTEMS Constitutional: No fever, no chills, no night sweats. No weight change. No weakness, fatigue or lethargy. No daytime sleepiness. EENT: No headache. No nasal drainage or congestion. No epistaxis. No sore throat. Lungs: Reports shortness of breath, cough, no sputum production. No wheezing. Cardiovascular: No chest pain, no lower extremity edema. No palpitations. No paroxysmal nocturnal dyspnea. No orthopnea. No lightheadedness or dizziness. No syncopal episodes. Abdominal: No abdominal pain. No nausea, vomiting. No diarrhea. No constipation. No bloody or tarry stools.. No loss of appetite. Genitourinary: No dysuria, increased frequency, urgency. No urinary retention. Musculoskeletal: No myalgias. No muscle weakness, no gait dysfunction, no frequent falls. No back pain. No neck pain. Integumentary: No wounds, no lesions. No rash or pruritus. Neurologic: No aphasia. No facial droop. No change in mentation. No head injury. No headache. No paralysis. No paresthesia. Psychiatric: No depression. No anxiety. Endocrine: Elevated blood sugars. SOCIAL HISTORY Single. no children. She lives with her adult sister. Smoked for a bit when she was in the . She was in stationed in [facility]. She was not ill and took the myriad of injections and medications. No animal exposures did not relate to being sexually active. FAMILY HISTORY Father at age 43 from pancreatic cancer. Mother at age 76 with history of 3 myocardial infarctions. Patient has one sister that in her 50s from CVA. Patient is one sister that is alive at age 70 with COPD, previous PE on Xarelto and Deshawn. One brother from esophageal cancer at age 35. PHYSICAL EXAMINATION Gen: This is a morbidly obese 69-year-old female. Patient is resting in bed and appears to be comfortable and in no acute distress. HEENT: Head is atraumatic, normocephalic. Pupils equal, round. Sclerae is anicteric. NECK: Supple. No JVD. No lymphadenopathy. No thyromegaly. LUNGS: Clear to auscultation. No wheezes or rhonchi. No intercostal retractions. HEART: Regular rate and rhythm. No murmur. ABDOMEN: Soft. Bowel sounds are present. No masses. No tenderness. EXTREMITIES: No pedal edema. No calf tenderness. Dorsalis pedis +2 bilaterally. NEUROLOGICAL: Patient is awake, alert and oriented x3. Cranial nerves 2 through 12 are grossly intact. ASSESSMENT AND PLAN 1. Acute bilateral pulmonary embolism, unprovoked. Patient does have family history of pulmonary embolism and will plan for follow-up with oncology as an outpatient for further workup. Patient currently on heparin drip. Echocardiogram has been done and report is pending. Consult with cardiology and ask her surgery. 2. Diabetes mellitus type 2. Metformin currently on hold. NovoLog scale before meals and at bedtime. 3. Hyperlipidemia. Lipitor 20 mg at bedtime. 4. Gastroesophageal reflux disease and GI prophylaxis. Continue Protonix. 5. Diabetic neuropathy. Continue gabapentin 600 mg 3 times daily. 6. Obstructive sleep apnea with CPAP follows with Dr. Ramirez. 7. Morbid obesity with BMI of 44. 8. DVT prophylaxis. Heparin drip. Patient will be admitted to the hospital for a minimum of 2 night stay. DISCHARGE PLAN home. Impression and plan of care have been directed as dictated by the signing physician. Katarina Paige nurse practitioner acting as scribe for signing physician. Past Medical History Past Medical History: GERD/Reflux, Hyperlipidemia, Osteoarthritis (OA) Additional Past Medical History / Comment(s): uses CPAP, history of acute blood loss anemia secondary to bleeding ulcer, diabetic neuropathy, morbid obesity, went to [facility] in november History of Any Multi-Drug Resistant Organisms: None Reported Past Surgical History: Adenoidectomy, Appendectomy, Cholecystectomy, Joint Replacement, Orthopedic Surgery, Tonsillectomy Additional Past Surgical History / Comment(s): arthroscopy knee x2, gastric sleeve, right hip replaced, bilateral trigger finger release, EGD for bleeding gastric polyp Past Anesthesia/Blood Transfusion Reactions: Postoperative Nausea & Vomiting (PONV) Past Psychological History: No Psychological Hx Reported Additional Psychological History / Comment(s): Single. no children. lives with her adult sister. Smoked for a bit when she was in the . History of internationally most recently was to [facility] a year ago. No illnesses during that trip. When she was in she was in [facility]. She was not ill and took the myriad of injections and medications. No animal exposures did not relate to being sexually active. Smoking Status: Never smoker Past Alcohol Use History: Occasional Past Drug Use History: None Reported - Past Family History Brother(s) Family Medical History: Cancer Additional Family Medical History / Comment(s): Patient had one brother at age 37 from esophageal cancer. Father Family Medical History: Cancer Additional Family Medical History / Comment(s): Father at age 47 from pancreatic cancer. Mother Family Medical History: Myocardial Infarction ([place]) Additional Family Medical History / Comment(s): Mother at age 76 status post several myocardial infarctions. Sister(s) Family Medical History: CVA/TIA Additional Family Medical History / Comment(s): Patient had 1 sister that at age 52 that had complications from diabetes uncontrolled and from a CVA. Patient has a second sister that is alive at age 68 with history of PE, overweight and smoker Medications and Allergies Home Medications Medication Instructions Recorded Confirmed Type Atorvastatin Calcium [Lipitor] 20 mg PO HS 10/29/16 01/23/20 History Esomeprazole Magnesium [NexIUM] 40 mg PO DAILY 10/29/16 01/23/20 History EPINEPHrine [Epipen 2-Khurram] 0.3 mg PO ONCE PRN 11/08/16 01/23/20 History metFORMIN HCL [Glucophage] 500 mg PO BID 04/22/17 01/23/20 History Calcium Carbonate [Calcium] 600 mg PO DAILY 01/23/20 01/23/20 History Celecoxib [CeleBREX] 200 mg PO DAILY 01/23/20 01/23/20 History Cholecalciferol [Vitamin D3 (25 1,000 unit PO DAILY 01/23/20 01/23/20 History Mcg = 1000 Iu)] Famotidine 20 mg PO DAILY 01/23/20 01/23/20 History Gabapentin 600 mg PO TID 01/23/20 01/23/20 History Allergies Allergy/AdvReac Type Severity Reaction Status Date / Time amoxicillin [From Augmentin] Allergy Nausea & Verified 01/23/20 21:09 Vomiting & Diarrhea bee pollen Allergy Dyspnea,WHE Verified 01/23/20 21:09 EZING cat dander Allergy Dyspnea Verified 01/23/20 21:09 clavulanic acid Allergy Nausea & Verified 01/23/20 21:09 [From Augmentin] Vomiting & Diarrhea Iodinated Contrast Media Allergy Anaphylaxis Verified 01/23/20 21:09 [Iodinated Contrast- Oral and IV Dye] iodine Allergy Anaphylaxis Verified 01/23/20 21:09 latex Allergy Rash/Hives, Verified 01/23/20 21:09 ITCHING venom-honey bee Allergy Anaphylaxis Verified 01/23/20 21:09 surgical stitch AdvReac redness & Uncoded 01/23/20 15:52 pus Physical Exam Vitals: Vital Signs Temp Pulse Pulse Resp BP BP Pulse Ox 01/24/20 08:00 98.1 F 72 18 128/68 95 01/24/20 04:00 98.1 F 72 19 102/54 94 L 01/24/20 00:00 98.5 F 79 20 133/63 94 L 01/23/20 22:13 98.9 F 74 19 164/98 94 L 01/23/20 21:00 75 18 155/80 94 L 01/23/20 18:35 97.8 F 80 16 166/84 94 L 01/23/20 17:06 88 01/23/20 16:57 84 01/23/20 15:50 97 F L 81 18 172/84 93 L Intake and Output 01/23/20 01/24/20 01/24/20 22:59 06:59 14:59 Intake Total 128.806 240 Balance 128.806 240 Intake: Intake, IV Titration 128.806 Amount Heparin Sod,Pork in 0.45% 128.806 NaCl 25,000 unit In 0.45 % NaCl 1 250ml.bag @ 18 UNITS/KG/HR 18.942 mls/hr IV .[id number] [facility] Rx#: [id number] Oral 240 Other: Voiding Method Bedside Commode # Voids 2 Weight 105.233 kg 110.5 kg Results CBC & Chem 7: 01/24/20 02:35 01/23/20 17:10 Labs: Abnormal Lab Results - Last 24 Hours (Table) 01/23/20 01/23/20 01/24/20 Range/Units 17:10 17:10 02:35 Lymphocytes # (1.0-4.8) k/uL APTT >200.0 H* (22.0-30.0) sec D-Dimer 8.25 H (<0.60) mg/L FEU Chloride 111 H (98-107) mmol/L BUN 23 H (7-17) mg/dL Glucose 143 H (74-99) mg/dL POC Glucose (mg/dL) (75-99) mg/dL Lactate Dehydrogenase 717 H (313-618) U/L LDL Cholesterol, Calc (0-99) mg/dL HDL Cholesterol (40-60) mg/dL 01/24/20 01/24/20 01/24/20 Range/Units 02:35 02:35 06:35 Lymphocytes # 0.7 L (1.0-4.8) k/uL APTT (22.0-30.0) sec D-Dimer (<0.60) mg/L FEU Chloride (98-107) mmol/L BUN (7-17) mg/dL Glucose (74-99) mg/dL POC Glucose (mg/dL) 183 H (75-99) mg/dL Lactate Dehydrogenase (313-618) U/L LDL Cholesterol, Calc 100 H (0-99) mg/dL HDL Cholesterol 63 H (40-60) mg/dL Thrombosis Risk Factor Assmnt - Choose All That Apply Each Risk Factor Represents 2 Points: Age 61-74 years Thrombosis Risk Factor Assessment Total Risk Factor Score: 2 Thrombosis Risk Factor Assessment Level: Low Risk
[2020-01-24] MEDS: HEPARIN SOD,PORK IN 0.45% NACL 25,000 UNIT in 0.45% NACL 1 250ML.BAG IV SCH (14:09)
[2020-01-24] MEDS: traMADol 50 MG TAB PO PRN ×2 (14:55→20:41)
[2020-01-24 15:00] LABS: Hemoglobin A1C 6.5 % (4.0-6.0)
[2020-01-24 16:52] LABS: Glucose,Whole Blood 142 mg/dL (75-99)
[2020-01-24] MEDS: INSULIN ASPART (NovoLOG) 100 UNIT/ML VIAL SQ SCH ×2 (17:39→21:29)
[2020-01-24] MEDS: ATORVASTATIN 20 MG TAB PO SCH (20:41)
[2020-01-24 21:15] LABS: Glucose,Whole Blood 117 mg/dL (75-99)
--- NOTE | 2020-01-25 02:12 | CONS ---
CONSULTATION PULMONARY/CRITICAL CARE CONSULTATION: DATE OF CONSULTATION: January 24, 2020. REASON FOR CONSULTATION: Shortness of breath/pulmonary embolism. This is a 69-year-old female with no risk factors for pulmonary embolism including sedentary lifestyle, active cancer, or recent trauma, who apparently presents to the emergency department on January 22 complaining of shortness of breath. She apparently developed relatively sudden shortness of breath. She had no chest pain associated with it. She was not coughing or producing any phlegm. There was no fever or chills. The patient denies any nausea, vomiting, diarrhea, or abdominal pain and also denies any genitourinary complaints. She denies any contact with sick individuals. She denies any trauma to the legs or swelling of the legs. For this reason, she was evaluated in the emergency department. She had a chest angiogram which suggested multiple bilateral lower lobe pulmonary emboli. For that reason, she was admitted and started on IV heparin. She is feeling a bit better currently. This appears to be an unprovoked blood clot. She has no prior history of pulmonary embolism. Dopplers of the lower extremities as I mentioned were negative. MEDICATIONS: Home medications are reviewed. She is on Lipitor, Nexium, Neurontin, multivitamins, EpiPen, Glucophage, Colace, Lovenox, Ronco, and Tramadol. ALLERGIES: Allergies reviewed and include AMOXICILLIN, BEE POLLEN, CAT DANDER, AUGMENTIN, IVP DYE, IODINE, LATEX, HONEY BEE VENOM, and SURGICAL SUTURE MATERIAL. PAST MEDICAL HISTORY: Past medical history includes gastroesophageal reflux disease, hyperlipidemia, DJD, sleep apnea syndrome, currently on CPAP, acute blood loss anemia secondary to bleeding ulcer, diabetic neuropathy, and obesity. SURGICAL HISTORY: Surgical history includes adenoidectomy, appendectomy, cholecystectomy, tonsillectomy, knee arthroscopy x2, gastric sleeve surgery, right hip replacement, bilateral trigger finger release, an EGD for bleeding gastric polyp. SOCIAL HISTORY: Negative tobacco use. She drinks occasionally. No illicit drug use. FAMILY HISTORY: Family history is positive for a brother with cancer, apparently had esophageal cancer. Father has a history of pancreatic cancer. Mother has a history of myocardial infarction and sister has a history of CVA. REVIEW OF SYSTEMS: CONSTITUTIONAL: Negative. NEUROLOGIC: Negative. HEENT: Negative. CARDIOVASCULAR: Negative. PULMONARY: Shortness of breath. GI: Negative. : Negative. RHEUMATOLOGIC: Negative. IMMUNOLOGIC: Negative. ENDOCRINOLOGIC: Negative. DERMATOLOGIC: Negative. PHYSICAL EXAMINATION: VITAL SIGNS: Current vital signs are reviewed. Temperature is 98.1, heart rate 68, respiratory rate 19, blood pressure 133/92, mean 105 and 3 L saturation 95%. GENERAL: Appears in no acute distress. HEENT: Examination is grossly unremarkable. Mucous membranes are moist. NECK: Supple. Full range of motion. No adenopathy. Neck veins are flat. CARDIOVASCULAR: Examination reveals regular rhythm and rate. Heart rate 68 beats per minute. Heart sounds are distant. S1, S2 normal. LUNGS: Reveal clear breath sounds. No wheezes, rhonchi, or crackles. ABDOMEN: Obese. Bowel sounds are heard. EXTREMITIES: Are intact. No cyanosis, clubbing, or edema. SKIN: Without rash. NEUROLOGIC: Examination is brief but nonfocal. LABS: Labs are reviewed. CBC is completely normal. PT/INR normal. PTT normal. D-dimer 8.25. Sodium 139, potassium 4, chloride 111, CO2 of 22. Anion gap is 6. BUN and creatinine were 23 and 1.02. The rest of the labs look okay. LDH 717. Procalcitonin 0.05. COVID testing was negative. Microbiologic studies are negative. A chest x-ray done on the day of admission was normal. CT angiogram shows bilateral lower lobe pulmonary emboli. Dopplers of lower extremities were negative. Echocardiogram showed good overall ejection fraction. Nothing mentioned about right heart strain on CT angiogram. MEDICATIONS: Current medications are reviewed. She is currently on aspirin, Lipitor, vitamin D3, gabapentin, IV heparin, insulin, morphine, nitroglycerin sublingual, Protonix and tramadol. ASSESSMENT: 1. Unprovoked bilateral lower lobe pulmonary emboli, of unclear etiology. 2. Obesity. 3. History of gastroesophageal reflux disease. 4. Hyperlipidemia. 5. Degenerative joint disease. 6. Sleep apnea syndrome. 7. History of anemia. 8. Diabetic neuropathy. 9. History of bleeding ulcer. PLAN: Currently, there is no major risk factors for pulmonary emboli. Although the patient is obese, she states she is not particularly sedentary. She has had no long car rides, boat rides, train rides or plane rides. She also denies any trauma to the lower extremities and denies any active cancer. She will need to be treated for at least 6 months. The IV heparin can be transitioned over to a factor Xa inhibitor. No additional recommendations are made. I would like to see her in the office post discharge. Eight to ten weeks down the line, she will need a followup CT angiogram. Additional recommendations and suggestions are forthcoming. MMODL / IJN: [id number] /
[2020-01-25] MEDS: HEPARIN SOD,PORK IN 0.45% NACL 25,000 UNIT in 0.45% NACL 1 250ML.BAG IV SCH (05:13)
[2020-01-25 06:19] LABS: Glucose,Whole Blood 109 mg/dL (75-99)
[2020-01-25] MEDS: INSULIN ASPART (NovoLOG) 100 UNIT/ML VIAL SQ SCH ×4 (06:29→20:34)
[2020-01-25] MEDS: PANTOPRAZOLE 40 MG TABLET PO SCH (06:32)
--- NOTE | 2020-01-25 08:36 | P.PN ---
Subjective Progress Note Date: 01/25/20 Principal diagnosis: Bilateral pulmonary embolism The patient is seen and examined at the bedside. She is sitting up in no acute distress eating her breakfast. She is wearing 3 L of nasal oxygen. She denies any shortness of breath or chest pain. She does state she does have some dyspnea with exertion up to the bathroom. She is currently on a heparin drip. Objective - Vital Signs Vital signs: Vital Signs Temp 97.9 F 01/25/20 04:00 Pulse 57 L 01/25/20 04:00 Resp 18 01/25/20 04:00 BP 131/61 01/25/20 04:00 Pulse Ox 96 01/25/20 04:00 Intake & Output 01/24/20 01/25/20 01/25/20 18:59 06:59 18:59 Intake Total 1144.088 91.132 Balance 1144.088 91.132 Intake: Intake, IV Titration 124.088 91.132 Amount Heparin Sod,Pork in 0.45% 124.088 91.132 NaCl 25,000 unit In 0.45 % NaCl 1 250ml.bag @ 18 UNITS/KG/HR 18.942 mls/hr IV .[id number] [facility] Rx#: [id number] Oral 1020 Other: Voiding Method Bedside Commode # Voids 2 2 - Exam General appearance: The patient is alert, oriented, in no acute distress. HET: Head is normocephalic and atraumatic Neck: Supple without lymphadenopathy. Trachea midline. Heart: S1 S2. Regular rate and rhythm. Lungs: Clear to auscultation bilaterally Abdomen: Soft, nontender, nondistended with bowel sounds. Extremities: Normal skin color and turgor. No cyanosis, rash, ulceration, clubbing, or edema. Radial and pedal pulses are 2/4 bilaterally. Neurological: No focal deficits. Strength and sensation are grossly intact. - Labs CBC & Chem 7: 01/25/20 09:46 01/23/20 17:10 Labs: Abnormal Lab Results - Last 24 Hours (Table) 01/24/20 01/24/20 01/24/20 Range/Units 02:35 11:41 12:10 APTT >200.0 H* (22.0-30.0) sec POC Glucose (mg/dL) 151 H (75-99) mg/dL Hemoglobin A1c 6.5 H (4.0-6.0) % 01/24/20 01/24/20 01/24/20 Range/Units 16:51 21:14 22:17 APTT 109.5 H* (22.0-30.0) sec POC Glucose (mg/dL) 142 H 117 H (75-99) mg/dL Hemoglobin A1c (4.0-6.0) % 01/25/20 Range/Units 06:17 APTT (22.0-30.0) sec POC Glucose (mg/dL) 109 H (75-99) mg/dL Hemoglobin A1c (4.0-6.0) % Microbiology - Last 24 Hours (Table) 01/23/20 17:10 Blood Culture - Preliminary Blood No Growth after 24 hours Assessment and Plan Assessment: 1. Pulmonary embolism 2. Diabetes 3. Hyperlipidemia 4. Obstructive sleep apnea on CPAP Plan: Agree with discontinuing heparin drip and starting xarelto. Recommend outpatient follow-up with hematology Patient may be discharged home when deemed medically stable Patient recommended to follow-up with vascular surgery in one month, we will sign off at this time Thank you for this consultation and allowing us to Plan of Care Of Your Patient during Her Hospital Stay. The impression and plan of care has been dictated as directed. Dr. Bazzi I performed a history and examination of this patient, discussed the same with the dictator. I agree with the dictator's note ,documented as a scribe. Any additional findings or plans will be noted.
[2020-01-25] MEDS: GABAPENTIN 300 MG CAP PO SCH ×3 (09:44→20:35)
[2020-01-25] MEDS: RIVAROXABAN 15 MG TAB PO SCH ×2 (09:44→17:44)
[2020-01-25] MEDS: ASPIRIN 325 MG TAB PO SCH (09:44)
[2020-01-25] MEDS: CHOLECALCIFEROL 1,000 UNIT TAB PO SCH (09:44)
[2020-01-25] MEDS: traMADol 50 MG TAB PO PRN ×3 (09:55→23:41)
--- NOTE | 2020-01-25 10:09 | P.PN ---
Subjective Progress Note Date: 01/25/20 This is a pleasant 69-year-old female who follows regularly with Dr. Christie in the office. Past medical history significant for hyperlipidemia, diabetes, obstructive sleep apnea for which she uses a CPAP machine at home, family history of premature coronary artery disease, who [facility] with symptoms of fairly sudden onset of shortness of breath. According to the patient, she had been outside working on her lawn all day Friday and felt quite well, at the end of that however she states that she was extremely tired, more than her usual. She also noticed himself to be short of breath with minimal exertion, she checked an oxygen saturation at home which came back in the 80s and for this reason came to the hospital for further evaluation and treatment. Her EKG on presentation here showed normal sinus rhythm with no acute changes. Chest x-ray did not reveal any acute changes. Blood pressure 102/50 with a heart rate in the 70s, respirations 18, 94% on 3 L. CTA of the chest was performed which revealed multiple bilateral low pulmonary embolism. Venous duplex study negative for DVT. White blood cell count 5.5, hemoglobin 14.3, platelet count 2:15. D-dimer 8.25. Sodium 139, potassium 4.0, BUN 23, creatinine 1.0, magnesium 1.9, troponin 0.012 times to Cunningham virus testing was negative. Patient is currently on IV heparin. Of note, patient did have an echo performed in the office in July 2018 which revealed a normal ejection fraction, Mine scan was also performed at that time which revealed mild reversible defect which is similar to prior stress testing. Patient did state also that her sister who is 2 years older than her also has a history of a pulmo nary embolism in the past. 01/25/2020 Patient was seen and examined this morning, still complaining of some shortness of breath with exertion. Echocardiogram with Doppler study revealed an ejection fraction of 55-60%, moderate pulmonary hypertension. Mild MR, mild TR. Blood pressure this morning 130/60 with a heart rate in the 50s to 60s, 96% on 2 L of oxygen. No lab data today. We will discontinue the IV heparin and start the patient on Xarelto today. Objective - Vital Signs Vital signs: Vital Signs Temp 97.9 F 01/25/20 04:00 Pulse 57 L 01/25/20 04:00 Resp 18 01/25/20 04:00 BP 131/61 01/25/20 04:00 Pulse Ox 96 01/25/20 04:00 Intake & Output 01/24/20 01/25/20 01/25/20 18:59 06:59 18:59 Intake Total 1144.088 91.132 120 Balance 1144.088 91.132 120 Intake: Intake, IV Titration 124.088 91.132 Amount Heparin Sod,Pork in 0.45% 124.088 91.132 NaCl 25,000 unit In 0.45 % NaCl 1 250ml.bag @ 18 UNITS/KG/HR 18.942 mls/hr IV .[id number] [facility] Rx#: [id number] Oral 1020 120 Other: Voiding Method Bedside Commode # Voids 2 2 1 # Bowel Movements 0 - Exam PHYSICAL EXAMINATION: GENERAL: 69-year-old female in no acute distress at the time of my examination HEENT: Head is atraumatic, normocephalic. Pupils equal, round. Sclera anicteric. Conjunctiva are clear. Mucous membranes of the mouth are moist. Neck is supple. There is no elevated jugular venous pressure. No carotid bruit is heard. HEART EXAMINATION: Heart S1, S2 normal. No murmur or gallop heard. CHEST EXAMINATION: Lungs are clear to auscultation and precussion. No chest wall tenderness is noted on palpation or with deep breathing. ABDOMEN: Soft, nontender. Bowel sounds are heard. No organomegaly noted. EXTREMITIES: 2+ peripheral pulses with no evidence of peripheral edema and no c bautista tenderness noted. Homans negative NEUROLOGIC patient is awake, alert and oriented 3 . - Labs CBC & Chem 7: 01/24/20 02:35 01/23/20 17:10 Labs: Abnormal Lab Results - Last 24 Hours (Table) 01/24/20 01/24/20 01/24/20 Range/Units 02:35 11:41 12:10 APTT >200.0 H* (22.0-30.0) sec POC Glucose (mg/dL) 151 H (75-99) mg/dL Hemoglobin A1c 6.5 H (4.0-6.0) % 01/24/20 01/24/20 01/24/20 Range/Units 16:51 21:14 22:17 APTT 109.5 H* (22.0-30.0) sec POC Glucose (mg/dL) 142 H 117 H (75-99) mg/dL Hemoglobin A1c (4.0-6.0) % 01/25/20 Range/Units 06:17 APTT (22.0-30.0) sec POC Glucose (mg/dL) 109 H (75-99) mg/dL Hemoglobin A1c (4.0-6.0) % Microbiology - Last 24 Hours (Table) 01/23/20 17:10 Blood Culture - Preliminary Blood No Growth after 24 hours Assessment and Plan Plan: Assessment and plan #1 acute bilateral pulmonary embolism, appears to be unprovoked. Patient has had no recent surgeries, no extended time being sedentary, no recent long travel #2 hyperlipidemia #3 diabetes #4 sleep apnea #5 GERD #6 family history of pulmonary embolism and her sister who is 2 years older. #7 history of premature coronary artery disease in her mom Plan We will discontinue the IV heparin, start the patient on xarelto 15 mg one tablet by mouth twice a day for 21 days, then 20 mg one tablet by mouth daily. DNP note has been reviewed, I agree with a documented findings and plan of care. Patient was seen and examined.
[2020-01-25 10:24] LABS: Basophils # (A) 0.1 k/uL (0-0.2); Basophils % (A) 1 %; Eosinophils # (A) 0.2 k/uL (0-0.7); Eosinophils % (A) 2 %; HCT 42.6 % (34.0-46.0); HGB 14.1 gm/dL (11.4-16.0); Lymphocytes % (A) 31 %; MCH 31.3 pg (25.0-35.0); MCHC 33.2 g/dL (31.0-37.0); MCV 94.3 fL (80.0-100.0); Mean Platelet Volume 7.8; Monocytes # (A) 0.4 k/uL (0-1.0); Monocytes % (A) 4 %; Neutrophils # (A) 5.9 k/uL (1.3-7.7); Neutrophils % (A) 61 %; Platelet Count 234 k/uL (150-450); RBC 4.52 m/uL (3.80-5.40); RDW 12.4 % (11.5-15.5); WBC 9.6 k/uL (3.8-10.6)
[2020-01-25 10:38] LABS: Partial Thromboplastin Time 63.9 sec (22.0-30.0); Prothrombin Time 10.3 sec (9.0-12.0)
[2020-01-25 11:50] LABS: Glucose,Whole Blood 90 mg/dL (75-99)
--- NOTE | 2020-01-25 12:17 | P.PN ---
Subjective Progress Note Date: 01/25/20 HISTORY OF PRESENT ILLNESS This is a 67-year-old female patient of Dr. Ashley Padgett with a past medical history of diabetes mellitus type 2, hyperlipidemia, gastroesophageal reflux disease, diabetic neuropathy, obstructive sleep apnea on CPAP, osteoarthritis, morbid obesity with a BMI of 44 status post gastric sleeve with loss of 110 pounds. Patient presented to the hospital due to shortness of breath. She states it started on Friday when she was working in the yard and she was more tired than normal. She felt the same way on Friday. She denies any leg pain or leg swelling. She denies having any recent travel, no history of cancer, no history of lupus rheumatoid arthritis or other autoimmune disorders. Patient came into [facility] emergency center for evaluation. Chest x-ray did not reveal any acute changes. Initial blood pressure 102/50, heart rate 70s, pulse ox 94% on room air. CTA of the chest revealed multiple bilateral pulmonary embolism. Venous duplex of the lower extremities negative for DVT. Hemoglobin 14.3, WBC 5.5, platelet count 215. D-dimer 8.25. Sodium 139, potassium 4.0, creatinine 1. Magnesium 1.9. Troponin negative.COVID-19 negative. Patient was started on heparin drip and admitted to the cardiac stepdown unit. Consults requested with vascular surgeon and cardiology. 01/24: Patient has been seen by multiple consultants including pulmonary medicine which is planning for follow-up in the office in 8-10 weeks and plan for repeat CTA of the chest. Patient is followed by cardiology and started on Xarelto today and discontinued heparin drip. Patient is also seen by vascular surgery. Patient has had no consultations overnight but has significant shortness of breath with minimal activity. She has been afebrile, heart rate 54, blood pressure 134/59, pulse ox 97% on 2 L nasal cannula. Repeat CBC is within normal limits. Blood sugar 90. Plan for discharge home tomorrow. REVIEW OF SYSTEMS Constitutional: No fever, no chills, no night sweats. No weight change. No weakness, fatigue or lethargy. EENT: No headache. No nasal drainage or congestion. No epistaxis. No sore throat. Lungs: Reports shortness of breath, reports exertional dyspnea, cough, no sputum production. No wheezing. Cardiovascular: No chest pain, no lower extremity edema. No palpitations. No paroxysmal nocturnal dyspnea. No orthopnea. No lightheadedness or dizziness. No syncopal episodes. Abdominal: No abdominal pain. No nausea, vomiting. No diarrhea. No constipation. No bloody or tarry stools.. No loss of appetite. Genitourinary: No dysuria, increased frequency, urgency. No urinary retention. Musculoskeletal: No myalgias. No muscle weakness, no gait dysfunction, no frequent falls. No back pain. No neck pain. Integumentary: No wounds, no lesions. No rash or pruritus. Neurologic: No aphasia. No facial droop. No change in mentation. No head injury. No headache. No paralysis. No paresthesia. Psychiatric: No depression. No anxiety. Endocrine: Elevated blood sugars. PHYSICAL EXAMINATION Gen: This is a morbidly obese 69-year-old female. Patient is ambulating in her room with noted accessory muscle usage. HEENT: Head is atraumatic, normocephalic. Pupils equal, round. Sclerae is anicteric. NECK: Supple. No JVD. No lymphadenopathy. No thyromegaly. LUNGS: Clear to auscultation. No wheezes or rhonchi. No intercostal retractions. HEART: Regular rate and rhythm. No murmur. ABDOMEN: Soft. Bowel sounds are present. No masses. No tenderness. EXTREMITIES: No pedal edema. No calf tenderness. Dorsalis pedis +2 bilaterally. NEUROLOGICAL: Patient is awake, alert and oriented x3. Cranial nerves 2 through 12 are grossly intact. ASSESSMENT AND PLAN 1. Acute bilateral pulmonary embolism, unprovoked. Patient does have family history of pulmonary embolism and will plan for follow-up with oncology as an outpatient for further workup. Patient transitioned to xarelto. Echocardiogram as above. Patient will have follow-up with oncology as an outpatient 2. Diabetes mellitus type 2. Metformin currently on hold. NovoLog scale before meals and at bedtime. 3. Hyperlipidemia. Lipitor 20 mg at bedtime. 4. Gastroesophageal reflux disease and GI prophylaxis. Continue Protonix. 5. Diabetic neuropathy. Continue gabapentin 600 mg 3 times daily. 6. Obstructive sleep apnea with CPAP follows with Dr. Ramirez. 7. Morbid obesity with BMI of 44. 8. DVT prophylaxis. Heparin drip. DISCHARGE PLAN home Friday. Impression and plan of care have been directed as dictated by the signing physician. Katarina Piage nurse practitioner acting as scribe for signing physician. Objective - Vital Signs Vital signs: Vital Signs Temp 97.9 F 01/25/20 04:00 Pulse 57 L 01/25/20 04:00 Resp 18 01/25/20 04:00 BP 131/61 01/25/20 04:00 Pulse Ox 96 01/25/20 04:00 Intake & Output 01/24/20 01/25/20 01/25/20 18:59 06:59 18:59 Intake Total 1144.088 91.132 Balance 1144.088 91.132 Intake: Intake, IV Titration 124.088 91.132 Amount Heparin Sod,Pork in 0.45% 124.088 91.132 NaCl 25,000 unit In 0.45 % NaCl 1 250ml.bag @ 18 UNITS/KG/HR 18.942 mls/hr IV .[id number] REEMA Rx#: [id number] Oral 1020 Other: Voiding Method Bedside Commode # Voids 2 2 - Labs CBC & Chem 7: 01/25/20 09:46 01/23/20 17:10 Labs: Abnormal Lab Results - Last 24 Hours (Table) 01/24/20 01/24/20 01/24/20 Range/Units 02:35 11:41 12:10 APTT >200.0 H* (22.0-30.0) sec POC Glucose (mg/dL) 151 H (75-99) mg/dL Hemoglobin A1c 6.5 H (4.0-6.0) % 01/24/20 01/24/20 01/24/20 Range/Units 16:51 21:14 22:17 APTT 109.5 H* (22.0-30.0) sec POC Glucose (mg/dL) 142 H 117 H (75-99) mg/dL Hemoglobin A1c (4.0-6.0) % 01/25/20 Range/Units 06:17 APTT (22.0-30.0) sec POC Glucose (mg/dL) 109 H (75-99) mg/dL Hemoglobin A1c (4.0-6.0) % Microbiology - Last 24 Hours (Table) 01/23/20 17:10 Blood Culture - Preliminary Blood No Growth after 24 hours
--- NOTE | 2020-01-25 14:06 | P.PN ---
Subjective Progress Note Date: 01/25/20 Principal diagnosis: Pulmonary embolism On 01/25/2020 patient seen in follow-up on selective care unit, she is resting comfortably in bed, no acute distress, nausea and shortness of breath, patient was in the back on 01/23/2020 for evaluation of shortness of breath with a relatively sudden onset, no chest pain, no coughing, no fever, no hemoptysis. No recent history of any trauma, surgery. Patient is relatively sedentary. This appears to be an unprovoked blood clot. Prior history of pulmonary embolism, patient is resting comfortably in bed on today's exam. 2 L of oxygen and pulse ox of 97%, hemodynamically she is stable, no complaints of chest pain or hemoptysis, respirations are nonlabored, heparin has been discontinued, patient has been transition over to Xarelto, echocardiogram showed preserved LV function with an EF of 55-60%, mild enlargement of the right ventricle, and right-sided pressures are 54.5 consistent with moderately severe pulmonary hypertension. Hemodynamic patient has had no issues. Objective - Vital Signs Vital signs: Vital Signs Temp 97.9 F 01/25/20 08:00 Pulse 58 L 01/25/20 12:00 Resp 18 01/25/20 12:00 BP 153/74 01/25/20 12:00 Pulse Ox 97 01/25/20 12:00 Intake & Output 01/24/20 01/25/20 01/25/20 18:59 06:59 18:59 Intake Total 1144.088 91.132 120 Balance 1144.088 91.132 120 Intake: Intake, IV Titration 124.088 91.132 Amount Heparin Sod,Pork in 0.45% 124.088 91.132 NaCl 25,000 unit In 0.45 % NaCl 1 250ml.bag @ 18 UNITS/KG/HR 18.942 mls/hr IV .[id number] REEMA Rx#: [id number] Oral 1020 120 Other: Voiding Method Bedside Commode # Voids 2 2 1 # Bowel Movements 0 - Exam GENERAL EXAM: Alert, very pleasant, 69-year-old old white female, 2 L of oxygen pulse ox of 97%, comfortable in no apparent distress. HEAD: Normocephalic/atraumatic. EYES: Normal reaction of pupils, equal size. Conjunctiva pink, sclera white. NOSE: Clear with pink turbinates. THROAT: No erythema or exudates. NECK: No masses, no JVD, no thyroid enlargement, no adenopathy. CHEST: No chest wall deformity. Symmetrical expansion. LUNGS: Equal air entry with no crackles, wheeze, rhonchi or dullness. CVS: Regular rate and rhythm, normal S1 and S2, no gallops, no murmurs, no rubs ABDOMEN: Soft, nontender. No hepatosplenomegaly, normal bowel sounds, no guarding or rigidity. EXTREMITIES: No clubbing, no edema, no cyanosis, 2+ pulses and upper and lower extremities. MUSCULOSKELETAL: Muscle strength and tone normal. SPINE: No scoliosis or deformity SKIN: No rashes CENTRAL NERVOUS SYSTEM: Alert and oriented -3. No focal deficits, tone is normal in all 4 extremities. PSYCHIATRIC: Alert and oriented -3. Appropriate affect. Intact judgment and insight. - Labs CBC & Chem 7: 01/25/20 09:46 01/23/20 17:10 Labs: Abnormal Lab Results - Last 24 Hours (Table) 01/24/20 01/24/20 01/24/20 Range/Units 02:35 12:10 16:51 APTT >200.0 H* (22.0-30.0) sec POC Glucose (mg/dL) 142 H (75-99) mg/dL Hemoglobin A1c 6.5 H (4.0-6.0) % 01/24/20 01/24/20 01/25/20 Range/Units 21:14 22:17 06:17 APTT 109.5 H* (22.0-30.0) sec POC Glucose (mg/dL) 117 H 109 H (75-99) mg/dL Hemoglobin A1c (4.0-6.0) % 01/25/20 Range/Units 09:46 APTT 63.9 H (22.0-30.0) sec POC Glucose (mg/dL) (75-99) mg/dL Hemoglobin A1c (4.0-6.0) % Microbiology - Last 24 Hours (Table) 01/23/20 17:10 Blood Culture - Preliminary Blood No Growth after 24 hours Assessment and Plan Plan: Assessment: #1. Acute unprovoked bilateral lower lobe pulmonary emboli, of unclear etiology #2. Shortness of breath related to the above #3. History of gastroesophageal reflux disease #4. Hyperlipidemia #5. GERD/reflux #6. Sleep apnea syndrome #7. History of anemia #8. Diabetes with diabetic neuropathy #9. History of bleeding ulcer Plan: Patient has been transitioned to oral anticoagulation in the form of several toe, doing well, hemodynamically stable, no acute events overnight, blood pressure stable, increase activity as tolerated, no specific complaints, wean FiO2, complains of worsening shortness of breath chest pain or hemoptysis, from pulmonary perspective she could be considered for discharge home in next 24 hours, we'll continue to follow I performed a history & physical examination of the patient and discussed their management with my nurse practitioner, Sasha Quan. I reviewed the nurse practitioner's note and agree with the documented findings and plan of care. Lung sounds are positive for diminished breath sounds. The findings and the impression was discussed with the patient. I attest to the documentation by the nurse practitioner. Time with Patient: Less than 30
[2020-01-25 17:00] LABS: Glucose,Whole Blood 133 mg/dL (75-99)
[2020-01-25 20:33] LABS: Glucose,Whole Blood 109 mg/dL (75-99)
[2020-01-25] MEDS: ATORVASTATIN 20 MG TAB PO SCH (20:34)
[2020-01-26 06:05] LABS: Glucose,Whole Blood 109 mg/dL (75-99)
[2020-01-26] MEDS: INSULIN ASPART (NovoLOG) 100 UNIT/ML VIAL SQ SCH (06:07)
[2020-01-26] MEDS: PANTOPRAZOLE 40 MG TABLET PO SCH (06:51)
[2020-01-26] MEDS: RIVAROXABAN 15 MG TAB PO SCH (06:51)
[2020-01-26] MEDS: GABAPENTIN 300 MG CAP PO SCH (08:04)
[2020-01-26] MEDS: ASPIRIN 325 MG TAB PO SCH (08:04)
[2020-01-26] MEDS: CHOLECALCIFEROL 1,000 UNIT TAB PO SCH (08:04)
[2020-01-26 08:10] VITALS: BP 131/74; PULSE 55; RESP 20; TEMP 97.8
--- NOTE | 2020-01-26 09:29 | P.DS ---
Providers Date of admission: 01/23/20 20:48 Expected date of discharge: 01/26/20 Attending physician: Winston Chakraborty Consults: 01/23/20 20:48 Consult Physician Routine Consulting Provider: Shree Bazzi Consult Reason/Comments: pe Do you want consulting provider notified?: Yes Consult Physician Routine Consulting Provider: Terri Mckenzie Consult Reason/Comments: pe Do you want consulting provider notified?: Yes Consult Physician Urgent Consulting Provider: Jeramie Ramirez Consult Reason/Comments: PE Do you want consulting provider notified?: Yes Primary care physician: [facility] Course: HISTORY OF PRESENT ILLNESS This is a 67-year-old female patient of Dr. Ashley Padgett with a past medical history of diabetes mellitus type 2, hyperlipidemia, gastroesophageal reflux disease, diabetic neuropathy, obstructive sleep apnea on CPAP, osteoarthritis, morbid obesity with a BMI of 44 status post gastric sleeve with loss of 110 pounds. Patient presented to the hospital due to shortness of breath. She states it started on Friday when she was working in the yard and she was more tired than normal. She felt the same way on Friday. She denies any leg pain or leg swelling. She denies having any recent travel, no history of cancer, no history of lupus rheumatoid arthritis or other autoimmune disorders. Patient came into [facility] emergency center for evaluation. Chest x-ray did not reveal any acute changes. Initial blood pressure 102/50, heart rate 70s, pulse ox 94% on room air. CTA of the chest revealed multiple bilateral pulmonary embolism. Venous duplex of the lower extremities negative for DVT. Hemoglobin 14.3, WBC 5.5, platelet count 215. D-dimer 8.25. Sodium 139, potassium 4.0, creatinine 1. Magnesium 1.9. Troponin negative.COVID-19 negative. Patient was started on heparin drip and admitted to the cardiac stepdown unit. Consults requested with vascular surgeon and cardiology. 01/24: Patient has been seen by multiple consultants including pulmonary medicine which is planning for follow-up in the office in 8-10 weeks and plan for repeat CTA of the chest. Patient is followed by cardiology and started on Xarelto today and discontinued heparin drip. Patient is also seen by vascular surgery. Patient has had no consultations overnight but has significant shortness of breath with minimal activity. She has been afebrile, heart rate 54, blood pressure 134/59, pulse ox 97% on 2 L nasal cannula. Repeat CBC is within normal limits. Blood sugar 90. Plan for discharge home tomorrow. 01/25: Patient states that her breathing status is much improved today and is off oxygen. Pulse ox is 97% on room air. She has been afebrile, heart rate 55, blood pressure 131/74. occupational therapy manager has checked coverage of [employer] which is $41 per month. Patient will be discharged home today in stable condition. ASSESSMENT AND PLAN 1. Acute bilateral pulmonary embolism, unprovoked. Patient does have family history of pulmonary embolism and will plan for follow-up with oncology as an outpatient for further workup. 2. Diabetes mellitus type 2. 3. Hyperlipidemia. 4. Gastroesophageal reflux disease. 5. Diabetic neuropathy. 6. Obstructive sleep apnea with CPAP follows with Dr. Ramirez. 7. Morbid obesity with BMI of 44. DISCHARGE PLAN home. Impression and plan of care have been directed as dictated by the signing physician. Katarina Paige nurse practitioner acting as scribe for signing physician. Patient Condition at Discharge: Serious Plan - Discharge Summary Discharge Rx Participant: No New Discharge Prescriptions: Continue Atorvastatin Calcium [Lipitor] 20 mg PO HS Esomeprazole Magnesium [NexIUM] 40 mg PO DAILY EPINEPHrine [Epipen 2-Khurram] 0.3 mg PO ONCE PRN PRN Reason: Anaphylaxis metFORMIN HCL [Glucophage] 500 mg PO BID Gabapentin 600 mg PO TID Cholecalciferol [Vitamin D3 (25 Mcg = 1000 Iu)] 1,000 unit PO DAILY Famotidine 20 mg PO DAILY Calcium Carbonate [Calcium] 600 mg PO DAILY Discontinued Celecoxib [CeleBREX] 200 mg PO DAILY Discharge Medication List Atorvastatin Calcium [Lipitor] 20 mg PO HS 10/29/16 [History] Esomeprazole Magnesium [NexIUM] 40 mg PO DAILY 10/29/16 [History] EPINEPHrine [Epipen 2-Khurram] 0.3 mg PO ONCE PRN 11/08/16 [History] metFORMIN HCL [Glucophage] 500 mg PO BID 04/22/17 [History] Calcium Carbonate [Calcium] 600 mg PO DAILY 01/23/20 [History] Cholecalciferol [Vitamin D3 (25 Mcg = 1000 Iu)] 1,000 unit PO DAILY 01/23/20 [History] Famotidine 20 mg PO DAILY 01/23/20 [History] Gabapentin 600 mg PO TID 01/23/20 [History] Follow up Appointment(s)/Referral(s): Pacheco Haile MD [STAFF PHYSICIAN] - 3 Weeks Arthur Perez MD [STAFF PHYSICIAN] - 02/03/20 4:45 pm Mary Wilder DO [STAFF PHYSICIAN] - 4 Weeks Bello Frank DO [Doctor of Osteopathic Medicine] - 6 Weeks (8 weeks) Jameson Diaz MD [Primary Care Provider] - 1 Week Patient Instructions/Handouts: Pulmonary Embolism (DC) Activity/Diet/Wound Care/Special Instructions: Pts copay for Xarelto is $41/mo. pts first month is filled for free in [facility] Discharge Disposition: HOME SELF-CARE
--- NOTE | 2020-01-26 10:34 | P.PN ---
Subjective Progress Note Date: 01/26/20 This is a pleasant 69-year-old female who follows regularly with Dr. Christie in the office. Past medical history significant for hyperlipidemia, diabetes, obstructive sleep apnea for which she uses a CPAP machine at home, family history of premature coronary artery disease, who presented [facility] with symptoms of fairly sudden onset of shortness of breath. According to the patient, she had been outside working on her lawn all day Friday and felt quite well, at the end of that however she states that she was extremely tired, more than her usual. She also noticed himself to be short of breath with minimal exertion, she checked an oxygen saturation at home which came back in the 80s and for this reason came to the hospital for further evaluation and treatment. Her EKG on presentation here showed normal sinus rhythm with no acute changes. Chest x-ray did not reveal any acute changes. Blood pressure 102/50 with a heart rate in the 70s, respirations 18, 94% on 3 L. CTA of the chest was performed which revealed multiple bilateral low pulmonary embolism. Venous duplex study negative for DVT. White blood cell count 5.5, hemoglobin 14.3, platelet count 2:15. D-dimer 8.25. Sodium 139, potassium 4.0, BUN 23, creatinine 1.0, magnesium 1.9, troponin 0.012 times to Cunningham virus testing was negative. Patient is currently on IV heparin. Of note, patient did have an echo performed in the office in July 2018 which revealed a normal ejection fraction, Mine scan was also performed at that time which revealed mild reversible defect which is similar to prior stress testing. Patient did state also that her sister who is 2 years older than her also has a history of a pulmo nary embolism in the past. 01/25/2020 Patient was seen and examined this morning, still complaining of some shortness of breath with exertion. Echocardiogram with Doppler study revealed an ejection fraction of 55-60%, moderate pulmonary hypertension. Mild MR, mild TR. Blood pressure this morning 130/60 with a heart rate in the 50s to 60s, 96% on 2 L of oxygen. No lab data today. We will discontinue the IV heparin and start the patient on Xarelto today. 01/26/2020 Patient seen and examined this morning, feels very well today, breathing is stable, denies any chest discomfort. Blood pressure 130/70 with a heart rate in the 70s, 97% on room air. No laboratory data today. Objective - Vital Signs Vital signs: Vital Signs Temp 97.8 F 01/26/20 08:05 Pulse 55 L 01/26/20 08:05 Resp 20 01/26/20 08:05 BP 131/74 01/26/20 08:05 Pulse Ox 97 01/26/20 08:05 Intake & Output 01/25/20 01/26/20 01/26/20 18:59 06:59 18:59 Intake Total 600 240 Output Total 500 Balance 600 -500 240 Weight 106.4 kg Intake: Oral 600 240 Output: Urine 500 Other: Voiding Method Bedside Commode # Voids 1 1 # Bowel Movements 0 - Exam PHYSICAL EXAMINATION: GENERAL: 69-year-old female in no acute distress at the time of my examination HEENT: Head is atraumatic, normocephalic. Pupils equal, round. Sclera anicteri c. Conjunctiva are clear. Mucous membranes of the mouth are moist. Neck is supple. There is no elevated jugular venous pressure. No carotid bruit is heard. HEART EXAMINATION: Heart S1, S2 normal. No murmur or gallop heard. CHEST EXAMINATION: Lungs are clear to auscultation and precussion. No chest wall tenderness is noted on palpation or with deep breathing. ABDOMEN: Soft, nontender. Bowel sounds are heard. No organomegaly noted. EXTREMITIES: 2+ peripheral pulses with no evidence of peripheral edema and no calf tenderness noted. Homans negative NEUROLOGIC patient is awake, alert and oriented 3 . - Labs CBC & Chem 7: 01/25/20 09:46 01/23/20 17:10 Labs: Abnormal Lab Results - Last 24 Hours (Table) 01/25/20 01/25/20 01/25/20 Range/Units 09:46 16:56 20:30 APTT 63.9 H (22.0-30.0) sec POC Glucose (mg/dL) 133 H 109 H (75-99) mg/dL 01/26/20 Range/Units 06:00 APTT (22.0-30.0) sec POC Glucose (mg/dL) 109 H (75-99) mg/dL Microbiology - Last 24 Hours (Table) 01/23/20 17:10 Blood Culture - Preliminary Blood No Growth after 48 hours Assessment and Plan Plan: Assessment and plan #1 acute bilateral pulmonary embolism, appears to be unprovoked. Patient has had no recent surgeries, no extended time being sedentary, no recent long travel #2 hyperlipidemia #3 diabetes #4 sleep apnea #5 GERD #6 family history of pulmonary embolism and her sister who is 2 years older. #7 history of premature coronary artery disease in her mom Plan From cardiology's perspective, patient may be able to be discharged home today. We will make her a follow-up appointment to see Dr. Christie in the office post discharge. DNP note has been reviewed, I agree with a documented findings and plan of care. Patient was seen and examined.
[2020-01-26] MEDS: traMADol 50 MG TAB PO PRN (10:43)
== END 2020-01-26 11:00 | disposition home or self-care (01) | DRG 176 ==
LOC: EC 15:46 → 3SCARD 20:48
PROVIDERS: ADMIT Internal Medicine Geriatric Medicine; ATTEND Internal Medicine Geriatric Medicine
DX: I26.99 Other pulmonary embolism without acute cor pulmonale (principal); Z68.41 Body mass index [BMI] 40.0-44.9, adult; F11.20 Opioid dependence, uncomplicated; E78.5 Hyperlipidemia, unspecified; G47.33 Obstructive sleep apnea (adult) (pediatric); Z99.89 Dependence on other enabling machines and devices; I25.10 Atherosclerotic heart disease of native coronary artery without angina pectoris; I27.20 Pulmonary hypertension, unspecified; K21.9 Gastro-esophageal reflux disease without esophagitis; M19.90 Unspecified osteoarthritis, unspecified site; Z20.828 Contact with and (suspected) exposure to other viral communicable diseases; Z79.1 Long term (current) use of non-steroidal anti-inflammatories (NSAID); Z79.84 Long term (current) use of oral hypoglycemic drugs; Z79.899 Other long term (current) drug therapy; Z80.0 Family history of malignant neoplasm of digestive organs; Z82.3 Family history of stroke; Z82.49 Family history of ischemic heart disease and other diseases of the circulatory system; E66.01 Morbid (severe) obesity due to excess calories; E11.40 Type 2 diabetes mellitus with diabetic neuropathy, unspecified; Z82.5 Family history of asthma and other chronic lower respiratory diseases; Z83.3 Family history of diabetes mellitus; Z83.2 Family history of diseases of the blood and blood-forming organs and certain disorders involving the immune mechanism; Z90.49 Acquired absence of other specified parts of digestive tract; Z96.641 Presence of right artificial hip joint; Z98.84 Bariatric surgery status; Z88.0 Allergy status to penicillin; Z88.8 Allergy status to other drugs, medicaments and biological substances; Z91.041 Radiographic dye allergy status; Z91.040 Latex allergy status; Z87.11 Personal history of peptic ulcer disease; Z90.89 Acquired absence of other organs; Z87.891 Personal history of nicotine dependence
CPT/HCPCS: 36415; 71045; 71275; 80053; 80061; 82728; 83036; 83605; 83615; 83735; 84145; 84484; 85025; 85379; 85610; 85730; 86140; 87040; 87635; 93005; 93306; 93970; 94640; 96361; 96365; 96375; 96376; 99285

== ENCOUNTER → 2020-05-16 | Outpatient (CLI) | payer MEDICARE ==
--- NOTE | 2020-05-16 17:52 | BD ---
EXAMINATION TYPE: Axial Bone Density DATE OF EXAM: 05/16/2020 COMPARISON: NONE CLINICAL HISTORY: Height: 5 FT 1/4 IN Weight: 234 FRAX RISK QUESTIONS: Alcohol (3 or more units per day): NO Family History (Parent hip fracture): NO Glucocorticoids (More than 3mos): NO (Ex: prednisone, prednisolone, methylprednisolone, dexamethasone, and hydrocortisone). History of Fracture in Adulthood: YES Secondary Osteoporosis: 1. Type 1 Diabetes: NO 2. Hyperthyroidism: NO 3. Menopause before 45: YES 4. Malnutrition: NO 5. Chronic liver disease: NO Rheumatoid Arthritis: NO Current Tobacco Use: NO RISK FACTORS HISTORY OF: History of Wrist Fracture: LEFT WRIST When: 2017 Surgery to Spine/Hip(right/left)/Wrist (right/left): RT HIP REPLACEMENT When: AGE 53 Family History of Osteoporosis: UNSURE Active: YES Diet low in dairy products/other sources of calcium: NO Postmenopausal woman: AGE 42 Take estrogen and/or progesterone medications: NONE Lost more than 2 inches in height since high school: YES MEDICATIONS: Additional Medications: METFORMIN, NEXIUM, XERALTO, GABAPENTIN, CALCIUM, NORCO, Additional History: EXAM MEASUREMENTS: Bone mineral densitometry was performed using the [employer] System. Bone mineral density as measured about the Lumbar spine is: ----- L1-L4(G/cm2): 1.046 T Score Values are as follows: ----- L2: -1.3 ----- L3: -0.2 ----- L4: -0.8 ----- L1-L4: -1.1 BASELINE Bone mineral density about the L hip (g/cm2): 0.746 T Score values are as follows: -----L Neck: -2.8 -----L Total: -2.1 BASELINE IMPRESSION: Osteoporosis (T Score less than -2.5). There is increased fracture risk and therapy is usually indicated based on age. Re-Screen 1-2 years. NOTE: T-SCORE=SD OF THE YOUNG ADULT MEAN.
== END ==
LOC: RADBDWWP 11:06
PROVIDERS: ATTEND Internal Medicine Geriatric Medicine
DX: M81.0 Age-related osteoporosis without current pathological fracture (principal); Z78.0 Asymptomatic menopausal state
CPT/HCPCS: 77080

== ENCOUNTER → 2020-05-16 | Outpatient (CLI) | payer MEDICARE ==
--- NOTE | 2020-05-18 10:37 | MM ---
Reason for exam: screening (asymptomatic). Last mammogram was performed 1 year and 11 months ago. History: Patient is postmenopausal and is nulliparous. Family history of breast cancer in maternal cousin. Physical Findings: A clinical breast exam by your physician is recommended on an annual basis and results should be correlated with mammographic findings. MG 3D Screening Mammo W/Cad Bilateral CC and MLO view(s) were taken. XCCM view(s) were taken of the left breast. Prior study comparison: June 25, 2018, bilateral MG screening mammo w CAD. April 16, 2017, bilateral MG screening mammo w CAD. There are scattered fibroglandular densities. There is chronic nodularity in the left breast. No significant changes when compared with prior studies. ASSESSMENT: Negative, BI-RAD 1 RECOMMENDATION: Routine screening mammogram of both breasts in 1 year.
== END ==
LOC: RADMAMWWP 11:03
PROVIDERS: ATTEND Internal Medicine Geriatric Medicine
DX: Z12.31 Encounter for screening mammogram for malignant neoplasm of breast (principal); Z78.0 Asymptomatic menopausal state; Z80.3 Family history of malignant neoplasm of breast
CPT/HCPCS: 77063; 77067

== ENCOUNTER → 2022-06-25 | Outpatient (CLI) | payer MEDICARE ==
--- NOTE | 2022-06-26 08:22 | BD ---
EXAMINATION TYPE: Axial Bone Density DATE OF EXAM: 06/25/2022 CLINICAL HISTORY: 72 years old Female. ICD-10 CODE: M81.0 Osteoporosis Height: 60 Weight: 215 FRAX RISK QUESTIONS: Family History (Parent hip fracture): no History of Fracture in Adulthood: yes Secondary Osteoporosis: yes 3. Menopause before 45: yes Rheumatoid Arthritis: no Current Tobacco Use: no RISK FACTORS HISTORY OF: History of Wrist Fracture: left wrist and left ankle When: 2016 1979 Surgery to Spine/Hip(right/left)/Wrist (right/left): right hip When: age 53 Family History of Osteoporosis: unsure Active: yes Diet low in dairy products/other sources of calcium: no Postmenopausal woman: yes age 42 Lost more than 2 inches in height since high school: no Frequent falls: no Poor Health: no MEDICATIONS: Additional Medications: yes METFORMIN, NEXIUM, CALCIUM EXAM MEASUREMENTS: Bone mineral densitometry was performed using the Micro[employer] System. Bone mineral density as measured about the Lumbar spine is: ----- L1-L4(G/cm2): 1.117 T Score Values are as follows: ----- L1: -1.8 ----- L2: -0.9 ----- L3: 0.3 ----- L4: 0.6 ----- L1-L4: -0.5 Z Score Values are as follows: ----- L1: -1.2 ----- L2: -0.3 ----- L3: 0.3 ----- L4: 1.2 ----- L1-L4: 0.1 Bone mineral density has: Increased 6.8% since study of: 05/16/2020 Bone mineral density about the L hip (g/cm2): 0.698 T Score values are as follows: -----L Neck: -2.4 -----L Total: -1.9 Z Score values are as follows: -----L Neck: -1.4 -----L Total: -1.1 Bone mineral density has: Increased 3.2% since study of: 05/16/2020 FRAX%s: The graph provided illustrates a 20.0% chance for a major osteoporotic fx and a 4.7% chance f or the hips probability for fx in 10 years time. IMPRESSION: Osteopenia (T Score between -2.5 and -1). There is slightly increased risk of fracture and the patient may be considered for treatment. Re-Screen 2-5 years. NOTE: T-SCORE=SD OF THE YOUNG ADULT MEAN.
--- NOTE | 2022-06-26 14:38 | MM ---
Reason for Exam: Screening (asymptomatic). Last mammogram was performed 2 year(s) and 1 month(s) ago. Patient History: Menarche at age 13. Patient has no children. Postmenopausal. Maternal cousin had breast cancer. Risk Values: Marcie 5 year model risk: 1.9%. NCI Lifetime model risk: 5.4%. Prior Study Comparison: 04/16/2017 Bilateral Screening Mammogram, [facility]. 06/25/2018 Bilateral Screening Mammogram, [facility]. 05/16/2020 Bilateral Screening Mammogram, [facility]. Tissue Density: The breast tissue is almost entirely fat. Findings: Analyzed By CAD. There is no suspicious group of microcalcifications or new suspicious mass in either breast. Overall Assessment: Negative, BI-RAD 1 Management: Screening Mammogram of both breasts in 1 year. A clinical breast exam by your physician is recommended on an annual basis and results should be correlated with mammographic findings. [facility] will attempt to contact patient to return for supplemental views and ultrasound if indicated. Electronically signed and approved by: Bello Romeo DO
== END | disposition home or self-care (01) ==
LOC: RADMAMWWP 15:43
PROVIDERS: ATTEND Internal Medicine Geriatric Medicine
DX: Z12.31 Encounter for screening mammogram for malignant neoplasm of breast (principal); M85.89 Other specified disorders of bone density and structure, multiple sites; M81.0 Age-related osteoporosis without current pathological fracture; Z78.0 Asymptomatic menopausal state; Z80.3 Family history of malignant neoplasm of breast
CPT/HCPCS: 77063; 77067; 77080

== ENCOUNTER → 2022-07-17 | Outpatient (CLI) | payer MEDICARE ==
--- NOTE | 2022-07-18 07:36 | CT ---
EXAMINATION TYPE: CT cervical spine wo con CT DLP: 673.60 mGycm, Automated exposure control for dose reduction was used. DATE OF EXAM: 07/17/2022 4:40 PM COMPARISON: None CLINICAL INDICATION:Female, 72 years old with history of M54.2 CERVICALGIA;, neck pain, no injury. pa in and numbness in both arms. TECHNIQUE: Axial CT images from the skull base to the inferior aspect of T2 we obtained without intra venous contrast. Coronal and sagittal reformatted images were also reviewed. FINDINGS: Fracture: None. Osseous structures: Multilevel degenerative disc disease changes with endplate spurring and disc oste ophyte complex's. Vertebral alignment: Alignment within normal limits. Spinal canal/Neural Foramina: No evidence of significant spinal canal narrowing. Facet joint and unco vertebral joint arthropathy result in narrowing moderate right C3-C4, moderate to severe right C4-C5, bilateral C5-C6 and left C6-C7 neural foraminal stenosis. Neck soft tissues: Prevertebral soft tissues are within normal limits. Other: The airway is patent. The lung apices are clear. IMPRESSION: 1. No evidence of cervical spine fracture. 2. Moderate multilevel degenerative disc disease with varying degrees of neural foraminal stenosis th roughout the cervical spine, findings worse at C5-C6 and C6-C7 bilaterally and right the C4-C5. [facility], Current date: 07/18/2022 7:31 AM,Date ordered: 07/17/2022 4:40 PM, [id number], [id number] , CT cervical spine wo con
== END | disposition home or self-care (01) ==
LOC: RADCTMAIN 16:19
PROVIDERS: ATTEND Physical Medicine & Rehabilitation Pain Medicine
DX: M50.321 Other cervical disc degeneration at C4-C5 level (principal); M79.602 Pain in left arm; M79.601 Pain in right arm; M48.02 Spinal stenosis, cervical region; R20.8 Other disturbances of skin sensation
CPT/HCPCS: 72125

== ENCOUNTER → 2023-12-31 | Outpatient (CLI) | payer MEDICARE ==
--- NOTE | 2023-12-31 10:44 | XR ---
EXAMINATION TYPE: XR chest 2V DATE OF EXAM: 12/31/2023 10:38 AM COMPARISON: Chest radiographs from 01/23/2020, CTA chest 01/23/2020, CT cervical spine 07/17/2022 TECHNIQUE: XR chest 2V Frontal and lateral views of the chest. CLINICAL INDICATION:Female, 73 years old with history of R05.9 COUGH, UNSPECIFIED; FINDINGS: Lungs/Pleura: There is no evidence of pleural effusion, focal consolidation, or pneumothorax. Pulmonary vascularity: Unremarkable. Heart/mediastinum: Cardiomediastinal silhouette is unremarkable. Musculoskeletal: No acute osseous pathology. Other findings: A stimulator type lead identified within the left supraclavicular region as seen on p rior CT cervical spine. IMPRESSION: No acute cardiopulmonary disease/process. [facility], , 12/31/2023 10:42 AM
== END | disposition home or self-care (01) ==
LOC: RADXRMAIN 10:26
PROVIDERS: ATTEND Internal Medicine Geriatric Medicine
DX: R05.9 Cough, unspecified (principal)
CPT/HCPCS: 71046

== ENCOUNTER 2024-09-08 08:13 | Day surgery (SDC) | payer MEDICARE ==
[2024-09-03 16:57] VITALS: BMI 40.4
[~2024-09-08 08:13] MED LIST changes: -ACETAMINOPHEN TAB 500 MG TAB PO ONE; -HYDROmorphone 0.5 MG/0.5 ML SYRINGE IVP PRN; +LACTATED RINGERS 1,000 ML IV SCH; -LIDOCAINE 1% 20 ML VIAL (10MG/ML) FOR IV START INTRADERMA PRN; -MELOXICAM 7.5 MG TAB PO ONE; -ONDANSETRON 4 MG/2 ML VIAL IVP ONE; -TRANEXAMIC ACID 1,000 MG in SODIUM CHLORIDE 0.9% 50 ML IVPB ONE; -VANCOMYCIN 1,750 MG in SODIUM CHLORIDE 0.9% 250 ML IVPB ONE
[2024-09-08] MEDS: IV FLUID CONTINUATION 1,000 ML IV ONE ×2 (08:36→09:45)
[2024-09-08 08:53] VITALS: TEMP 97.2
[2024-09-08 08:57] LABS: Glucose,Whole Blood 112 mg/dL (70-110)
[2024-09-08] MEDS ORDERED: LIDOCAINE 2% (PF) 20 MG/ML 5 ML VIAL ONE (09:29)
[2024-09-08] MEDS ORDERED: PROPOFOL 10 MG/ML 20 ML VIAL IV ONE (09:29)
--- NOTE | 2024-09-08 09:37 | P.PCN ---
Date of Procedure: 09/08/24 Procedure(s) Performed: BRIEF HISTORY: Patient is a 74-year-old, pleasant, white male scheduled for an upper endoscopy as a part of evaluation of longstanding history of GERD/heartburn and intermittent dysphagia to solids. History of gastric sleeve surgery many years ago. PROCEDURE PERFORMED: Esophagogastroduodenoscopy with biopsy. PREOPERATIVE DIAGNOSIS: Longstanding history of GERD. IV sedation per anesthesia. PROCEDURE: After informed consent was obtained, the patient was brought into the endoscopy unit. IV sedation was administered by Anesthesia under continuous monitoring. Initially the Olympus GIF-140 video endoscope was inserted into the mouth. Esophagus intubated without any difficulty. It was gradually advanced into the stomach and duodenum and carefully examined. The bulb and the second part of the duodenum appeared normal. The scope at this time was withdrawn to the stomach, adequately insufflated with air, and upon careful examination, mucosa of the antrum, had gastritis and biopsies were done from this area. There was evidence of gastric sleeve and there was gastritis involving the gastric sleeve. The scope was then withdrawn into the esophagus. Small hiatal hernia noted. The GE junction was located at 35 cm from the incisors. The distal esophagus appeared slightly tortuous but no esophagitis or Horn's esophagus seen. Rest of esophagus appeared normal. There were no erosions or ulcerations seen and the patient tolerated the procedure well. IMPRESSION: 1. Diffuse gastritis involving the gastric sleeve as well as the antrum status post biopsies. 2. Small hiatal hernia 3. Tortuous distal esophagus. RECOMMENDATIONS: The findings of this examination were discussed with the patient as well as her family. Follow-up with the biopsy results. She was advised to continue with Nexium 40 mg daily and Pepcid at bedtime and follow antireflux measures..
[2024-09-08 09:47] VITALS: RESP 14
[2024-09-08 10:03] VITALS: BP 128/77; PULSE 55
== END 2024-09-08 10:19 | disposition home or self-care (01) ==
LOC: ORWHC2ENDO 08:13
PROVIDERS: ATTEND Internal Medicine Gastroenterology
DX: K29.71 Gastritis, unspecified, with bleeding (principal); K21.9 Gastro-esophageal reflux disease without esophagitis; K44.9 Diaphragmatic hernia without obstruction or gangrene; E78.5 Hyperlipidemia, unspecified; G47.33 Obstructive sleep apnea (adult) (pediatric); E11.40 Type 2 diabetes mellitus with diabetic neuropathy, unspecified; Z89.521 Acquired absence of right knee; Z86.711 Personal history of pulmonary embolism; Z90.89 Acquired absence of other organs; Z91.041 Radiographic dye allergy status; Z98.84 Bariatric surgery status; Z91.030 Bee allergy status; Z88.0 Allergy status to penicillin; Z79.02 Long term (current) use of antithrombotics/antiplatelets; Z79.4 Long term (current) use of insulin; Z79.899 Other long term (current) drug therapy
CPT/HCPCS: 88305; 43239; J2704; J2003